=== PATIENT | female | born 1940 | race Asian ===

== ENCOUNTER 2016-09-04 11:43 | Inpatient (IN) | payer OTHER ==
[~2016-09-04] VITALS: Ht 147.3 cm; Wt 34.6 kg
[~2016-09-04 11:43] MED LIST: ACET325T9 PO; AMLO10TA4 PO; AMOX1TAB10 PO; ASPI325T4 PO; Albuterol Sulfate NEB; CLON0.1T12 PO; DARB25DI SQ; Dextrose 50 % In Water IV; ETHA400T PO; FOLI1TAB16 PO; HYDR-2868 PO; Hydralazine Hcl IV; INSU100I17 SQ; INSU100V13 SQ; ISONIAZID PO; LINE600T PO; LISI10TA PO; LISI10TA2 PO; MAGN400T3 PO; METO5VIA4 IV; MOXI400T3 PO; ONDA4TAB7 PO; Ondansetron Hcl/Pf IV; PANT40TA3 PO; PANT40TA5 PO; PYRAZINAMIDE PO; PYRI50TA4 PO; Polyethylene Glycol 3350 PO; RIFA300C PO; SIME80TA PO; Sennosides/Docusate Sodium PO
[2016-09-04] MEDS ORDERED: ALBUTEROL SULFATE 2.5 MG/3 ML NEBU. INH ONE (12:15)
[2016-09-04] MEDS ORDERED: predniSONE 10 MG TABLET PO ONE (12:15)
[2016-09-04] MEDS ORDERED: IPRATRPIUM/ALBUTEROL 0.5/2.5MG 3 ML NEBU. NEB ONE (12:15)
--- NOTE | 2016-09-04 12:27 | PHYS DOC ---
Past Medical History Past Medical History: Diabetes-Type II, Renal Disease, Unknown Additional Past Medical Histor: Tuberculosis, kidney failure, other hx unknown Past Surgical History: Other Additional Past Surgical Histo: OVARIES, dialysis shunt placement L upper arm Alcohol Use: None Drug Use: None Adult General Chief Complaint Chief Complaint: DYSPNEA/RESPIRATOY DISTRESS HPI HPI Patient is a 75 year old female who presents with shortness of breath. Patient has been having productive cough over the past week. Today while at dialysis she started having increasing shortness of breath. No chest discomfort, no fever. No clear inciting or mitigating factors. Unable to obtain significant history from patient even with aerial photograph interpreter phone. Review of Systems Review of Systems Unable to obtain full ROS due to language barrier (despite use of aerial photograph interpreter phone) Pulmonary: productive cough, SOB Current Medications Current Medications Current Medications Medications (Trade) Dose Ordered Sig/[place] Start Time Stop Time Status Last Admin Dose Admin Acetaminophen (Tylenol) 650 mg PRN Q4HRS PRN 09/04/16 14:15 09/05/16 14:14 Albuterol Sulfate (Ventolin Neb Soln) 5 mg 1X ONCE 09/04/16 12:15 09/04/16 12:16 DC 09/04/16 12:17 5 MG Albuterol/ Ipratropium (Duoneb) 3 ml 1X ONCE 09/04/16 12:15 09/04/16 12:16 DC 09/04/16 12:17 3 ML Aspirin (Children'S Aspirin) 324 mg 1X ONCE 09/04/16 13:45 09/04/16 13:46 DC Morphine Sulfate 2 mg PRN Q2HR PRN 09/04/16 14:15 09/05/16 14:14 Ondansetron HCl (Zofran) 4 mg PRN Q8HRS PRN 09/04/16 14:15 09/05/16 14:14 Piperacillin Sod/ Tazobactam Sod 2.25 gm/Sodium Chloride 50 ml @ 100 mls/hr ONCE ONCE 09/04/16 13:00 09/04/16 13:29 DC 09/04/16 13:32 100 MLS/HR Piperacillin Sod/ Tazobactam Sod 1 each 1 each PRN DAILY PRN 09/04/16 13:00 UNV Prednisone (Prednisone) 60 mg 1X ONCE 09/04/16 12:15 09/04/16 12:16 DC 09/04/16 12:41 60 MG Vancomycin HCl (Vanco Per Pharmacy) 1 each PRN DAILY PRN 09/04/16 13:00 UNV Vancomycin HCl/ Sodium Chloride (Iv Sodium Chloride 0.9% 250ml) 250 ml @ 166.667 mls/hr 1X ONCE 09/04/16 13:00 09/04/16 14:29 Allergies Allergies Allergies Coded Allergies Type Severity Reaction Last Updated Verified No Known Medication Allergies Allergy Unknown 03/08/16 Yes Physical Exam Physical Exam Constitutional: Well developed, well nourished, no acute distress, non-toxic appearance HENT: Normocephalic, atraumatic, bilateral external ears normal Eyes: EOMI, conjunctiva normal, no discharge Neck: Normal range of motion, no stridor Cardiovascular: Heart rate normal, regular rhythm, no murmur Lungs & Thorax: Diffuse expiratory wheezing, coarse breath sounds more pronounced on L side Abdomen: Bowel sounds normal, soft, non-distended, no TTP Skin: Warm, dry, no erythema, no rash Extremities: No obvious deformity, no edema Neurologic: No gross deficits noted Current Patient Data Vital Signs Vital Signs Date Time Temp Pulse Resp B/P Pulse Ox O2 Delivery O2 Flow Rate FiO2 09/04/16 12:15 100 Nasal Cannula 3.0 09/04/16 11:43 97.5 88 33 198/91 97.5 Lab Values Laboratory Tests Test 09/04/16 12:55 09/04/16 13:30 White Blood Count 7.8x10^3/uL (4.0-11.0) Red Blood Count 3.46x10^6/uL (3.50-5.40) L Hemoglobin 10.5g/dL (12.0-15.5) L Hematocrit 31.2% (36.0-47.0) L Mean Corpuscular Volume 90fL (79-100) Mean Corpuscular Hemoglobin 30pg (25-35) Mean Corpuscular Hemoglobin Concent 34g/dL (31-37) Red Cell Distribution Width 15.3% (11.5-14.5) H Platelet Count 94x10^3/uL (140-400) L Neutrophils (%) (Auto) 75% (31-73) H Lymphocytes (%) (Auto) 14% (24-48) L Monocytes (%) (Auto) 9% (0-9) Eosinophils (%) (Auto) 2% (0-3) Basophils (%) (Auto) 0% (0-3) Neutrophils # (Auto) 5.8x10^3uL (1.8-7.7) Lymphocytes # (Auto) 1.1x10^3/uL (1.0-4.8) Monocytes # (Auto) 0.7x10^3/uL (0.0-1.1) Eosinophils # (Auto) 0.2x10^3/uL (0.0-0.7) Basophils # (Auto) 0.0x10^3/uL (0.0-0.2) Sodium Level 141mmol/L (136-145) Potassium Level 3.8mmol/L (3.5-5.1) Chloride Level 100mmol/L (98-107) Carbon Dioxide Level 28mmol/L (21-32) Anion Gap 13 (6-14) Blood Urea Nitrogen 41mg/dL (7-20) H Creatinine 7.0mg/dL (0.6-1.0) H Estimated GFR (Cockcroft-Gault) 5.7 Glucose Level 157mg/dL (70-99) H Lactic Acid Level 1.5mmol/L (0.4-2.0) Calcium Level 8.7mg/dL (8.5-10.1) Troponin I Quantitative 0.196ng/mL (0.000-0.055) VD-Isu-Q-Type Natriuretic Peptide > 50977hm/mL (0-449) H Influenza Type A Antigen Negative (NEGATIVE) Influenza Type B Antigen Negative (NEGATIVE) Laboratory Tests 09/04/16 12:55 Laboratory Tests 09/04/16 12:55 EKG EKG EKG (my read): sinus rhythm, rate 86, normal axis, intervals wnl, nonspecific ST changes Radiology/Procedures Radiology/Procedures CXR: IMPRESSION: Vascular congestion with moderate right pulmonary infiltrate and pleural fluid most likely due to congestive heart failure. A component of pneumonia cannot be excluded. Course & Med Decision Making Course & Med Decision Making Pertinent Labs and Imaging studies reviewed. (See chart for details) Patient is 75 year old female who presents with SOB and cough. Significant wheezing noted on exam, will give breathing treatment and dose of steroids. CXR , labs, EKG ordered. ASA given. Labs notable for elevated BNP and troponin ( appears related to ESRD); troponin significantly lower than prior value. EKG and CXR results as above. Will cover with mendel for HCAP. Discussed results with patient's son. Discussed with Dr. Woods (covering for Dr. Bowman), will admit under his care for further evaluation and treatment. Consult entered for cardiology, nephrology, pulmonology. Dragon Disclaimer Dragon Disclaimer This electronic medical record was generated, in whole or in part, using a voice recognition dictation system. Departure Departure Impression: Primary Impression: SOB (shortness of breath) Additional Impressions: Pulmonary edema Pneumonia Disposition: ADMITTED INPATIENT Admitting Physician: Blanche Woods Condition: GUARDED Referrals: RACHEL BOWMAN (PCP) Problem Qualifiers JULIA CASSIDY MD Sep 04, 2016 12:27
--- NOTE | 2016-09-04 12:29 | EKG ---
[facility] [address] [place] [address] Test Date: 2016-09-04 Test Time: 11:56:44 Pat Name: OPAL KAUFFMAN Department: Room: Gender: F Down Filler: : 1940 Requested By: JULIA CASSIDY Order Number: [id number] Reading MD: Chepe Waller Measurements Intervals [place] Rate: 86 P: 34 OR: 158 QRS: 85 QRSD: 78 T: 26 QT: 366 QTc: 441 Interpretive Statements SINUS RHYTHM Electronically Signed On 09-15-2016 13:04:21 CDT by Chepe Waller
--- NOTE | 2016-09-04 12:48 | RAD ---
Portable chest, 09/04/2016: History: Cough, shortness of breath, wheezing Comparison is made to a study from 03/11/2016. The heart is enlarged. There is calcific plaquing of the aorta. The pulmonary vascularity is congested. There is a moderate right lower chest opacity compatible with infiltrate and pleural fluid. No definite left-sided pleural fluid is seen. Surgical sutures and vascular stents are projected over the medial aspect of the left upper arm. The bony structures are demineralized. IMPRESSION: Vascular congestion with moderate right pulmonary infiltrate and pleural fluid most likely due to congestive heart failure. A component of pneumonia cannot be excluded.
[2016-09-04] MEDS ORDERED: PIPERACILLIN/TAZOBACTAM 2.25 GM in IV NORMAL SALINE 50ML 50 ML IV ONE (13:00)
[2016-09-04] MEDS ORDERED: VANCOMYCIN 1.25 GM in IV NORMAL SALINE 250ML 250 ML IV ONE (13:00)
[2016-09-04] MEDS ORDERED: PIP/TAZO PER PHARMACY MC PRN (13:00)
[2016-09-04 13:08] LABS: BASO % 0 % (0-3); EOS % 2 % (0-3); HEMATOCRIT 31.2 % (36.0-47.0); HEMOGLOBIN 10.5 g/dL (12.0-15.5); LYMPH # 1.1 x10^3/uL (1.0-4.8); LYMPH % 14 % (24-48); MEAN CORPUSCULAR HEMOGLOBIN 30 pg (25-35); MEAN CORPUSCULAR HGB CONC 34 g/dL (31-37); MEAN CORPUSCULAR VOLUME 90 fL (79-100); MONO % 9 % (0-9); NEUT % 75 % (31-73); PLATELET COUNT 94 x10^3/uL (140-400); RED BLOOD COUNT 3.46 x10^6/uL (3.50-5.40); RED CELL DISTRIBUTION WIDTH 15.3 % (11.5-14.5); WHITE BLOOD COUNT 7.8 x10^3/uL (4.0-11.0)
[2016-09-04 13:20] LABS: CALCIUM 8.7 mg/dL (8.5-10.1); GFR 5.7; POTASSIUM 3.8 mmol/L (3.5-5.1)
[2016-09-04] MEDS ORDERED: ASPIRIN CHEWABLE 81 MG TABLET. PO ONE (13:45)
[2016-09-04 14:14] LABS: OBC FLU VALID
[2016-09-04] MEDS ORDERED: MORPHINE SULFATE 2 MG/ML DISP.SYRIN. IV PRN (14:15)
[2016-09-04] MEDS ORDERED: ACETAMINOPHEN 325 MG TABLET. PO PRN ×2 (14:15→16:00)
[2016-09-04] MEDS ORDERED: ONDANSETRON PF 4 MG/2 ML VIAL. IV PRN (14:15)
--- NOTE | 2016-09-04 14:18 | ACF ---
Admit Criteria Forms Admit Criteria Forms Admit Criteria Forms GENERAL ADMISSION CRITERIA (Place 'X' for any and all applicable criteria): Admission is indicated for ANY ONE of the following: [ ]I. Hemodynamic instability as indicated by ANY ONE of the following(1)(2) (3)(4)(5): [ ]a) Vital sign abnormality not readily corrected by appropriate treatment within 12 to 24 hours indicated by ANY ONE of the following: [ ]i) Hypotension [ ]ii) Symptomatic Tachycardia unresponsive to treatment (eg , analgesia, fluids, sedation as indicated) [ ]iii) Orthostatic vital sign changes unresponsive to treatment (eg, fluids) [ ]b) Vital sign abnormality that is severe indicated by ANY ONE of the following: [ ]i) Inadequate perfusion indicated by ANY ONE of the following: [ ]1) Lactic acidosis (greater than 2 mmol/L) [ ]2) New abnormal capillary refill (greater than 3 seconds) [ ]3) Other metabolic acidosis (arterial pH less than 7.35) not otherwise explained [ ]4) Reduced urine output [ ]5) Altered mental status [ ]6) Myocardial Ischemia [ ]v) Mean arterial pressure[A] less than 60 mm Hg [ ]vi) Mean arterial pressure[A] less than 70 mm Hg after 30 minutes of appropriate treatment (eg, fluid resuscitation) [ ]vii) IV inotropic or vasopressor medication required to maintain adequate blood pressure or perfusion [ ]viii) Sustained heart rate greater than 120 beats per minute in adult or child 6 years or older[B]] [ ]II. Hypertension requiring inpatient treatment as indicated by ANY ONE of the following(6)(7)(8): [ ]a) SBP greater than 220 mm Hg or DBP greater than 120 mm Hg despite treatment [ ]b) SBP greater than 140 mm Hg or DBP greater than 100 mm Hg with evidence of acute end organ damage as indicated by ANY ONE of the following: [ ]i) Encephalopathy [ ]ii) Acute renal failure as indicated by new onset of ANY ONE of the following(9)(10)(11)(12)(13): [ ]1) A 3-fold rise in serum creatinine from baseline [ ]2) Serum creatinine greater than 4 mg/dL ( 354 micromoles/L) with acute rise greater than 0.5 mg/dL (44.2 micromoles/L) [ ]3) Reduction of more than 75% in estimated glomerular filtration rate from baseline [ ]4) Estimated glomerular filtration rate less than 35 mL/min/1.73m2 (0.59 mL/sec/1.73m2) in child up to 18 years of age [ ]5) Cessation of urine output indicated by ALL of the following: [ ]A. Adequate volume status [ ]B. Inadequate urine output as indicated by ANY ONE of the following: [ ]a. Urine output less than 0.3 mL/kg/hr for 24 hours [ ]b. Anuria (urine output less than 0.1 mL/kg/hr) for 12 hours [ ]iii) Aortic dissection [ ]iv) Myocardial ischemia [ ]v) Left ventricular heart failure [ ]vi) Retinal hemorrhage [ ]vii) Other significant finding [ ]c) Hypertension in child requiring inpatient treatment as indicated by ALL of the following(14)(15)(16): [ ]i) Outpatient treatment not effective, not available, or not appropriate [ ]ii) SBP or DBP greater than 95th percentile for age [ ]iii) Evidence of acute end organ damage as indicated by ANY ONE of the following: [ ]1) Altered mental status [ ]2) Acute renal failure as indicated by new onset of ANY ONE of the following(9)(10)(11)(12)(13): [ ]A. A 3-fold rise in serum creatinine from baseline [ ]B. Serum creatinine greater than 4 mg/dL (354 micromoles/L) with acute rise greater than 0.5 mg/dL (44.2 micromoles/L) [ ]C. Reduction of more than 75% in estimated glomerular filtration rate from baseline [ ]D. Estimated glomerular filtration rate less than 35 mL/min/1.73m2 (0.59 mL/sec/1.73m2)in child up to 18 years of age [ ]E. Cessation of urine output indicated by ALL of the following: [ ]a. Adequate volume status [ ]b. Inadequate urine output as indicated by ANY ONE of the following: [ ]1) Urine output less than 0.3 mL/kg/hr for 24 hours [ ]2) Anuria (urine output less than 0.1 mL/kg/hr) for 12 hours [ ]3) Severe headache [ ]4) Visual disturbance [ ]5) Retinal hemorrhage [ ]6) Other significant finding [ ]III. Acute cardiac or peripheral ischemia as indicated by ANY ONE of the following: [ ]a) Acute coronary syndrome(17)(18) [ ]b) Acute peripheral ischemia (eg, pulseless, cool, mottled, or cyanotic extremity)(19) [ ]IV. Cardiac arrhythmias or findings of immediate concern indicated by ANY ONE of the following(20)(21): [ ]a) Heart rhythms that are inherently dangerous or unstable indicated by ANY ONE of the following(22)(23)(24): [ ]i) Resuscitated ventricular fibrillation or cardiac arrest [ ]ii) Ventricular escape rhythm [ ]iii) Sustained ventricular tachycardia (30 seconds or more of ventricular rhythm at greater than 100 beats per minute) [ ]iv) Nonsustained ventricular tachycardia and ANY ONE of the following: [ ]1) Suspected cardiac ischemia as cause or consequence of ventricular tachycardia [ ]2) In setting of acute myocarditis [ ]b) Unstable cardiac conduction defects indicated by ANY ONE of the following(24)(25)(26): [ ]i) Type II second-degree atrioventricular block [ ]ii) Third-degree atrioventricular block [ ]iii) New-onset left bundle branch block with suspected myocardial ischemia [ ]c) Any heart rhythm and ANY ONE of the following(22)(23)(27)(28)( 29): [ ] i) Continuous long-term ECG monitoring needed (eg, initiation of drug requiring monitoring for more than 24 hours) [ ] ii) Patient has automatic implanted cardioverter defibrillator that is repeatedly firing, malfunctioning, or in need of immediate adjustment of settings beyond the scope of ambulatory or observation care. [ ]d) Heart rhythms of concern due to ANY ONE of the following: [ ]i) Hypotension [ ]ii) Respiratory distress [ ]iii) Association with other significant symptoms (eg, bradycardia with syncope or ongoing dizziness, supraventricular tachycardia with chest pain) (27)(28) (30) [ ] V. Severe heart failure as indicated by ANY ONE of the following ( 31)(32): [ ]a) Respiratory distress [ ]b) Hypotension [ ]c) Anasarca (refractory to outpatient therapy) [ ]d) Cardiac arrhythmias of immediate concern [ ]e) Myocardial ischemia [X]. Respiratory abnormalities, including ANY ONE of the following(33)(34) (35)(36): [ ]a) Respiratory rate greater than 30 breaths per minute unresponsive to treatment [A] [ ]b) New saturation of arterial oxygen less than 90% [ ]c) New partial pressure of carbon dioxide greater than 44 mm Hg ( 5.9 kPa) [X]d) Supplemental oxygen or respiratory treatments needed that are new or not performable at other levels of care [ ]e) New-onset cyanosis [ ]f) Inability to protect airway [ ]g) Chronic lung disease with severe deterioration (not responsive to emergency and observation care treatment as appropriate) as indicated by ANY ONE of the following(34)(36 ): [ ]i) SaO2 5% below baseline in patient with chronic hypoxemia [ ]ii) New requirement for supplemental oxygen to keep SaO2 at baseline or acceptable level [ ]iii) Required supplemental oxygen performable only in acute inpatient setting [ ]iv) Severe airflow or ventilation abnormalities [ ]v) Previously mobile patient unable to walk between rooms [ ]vi Inability to eat or sleep due to dyspnea [ ]vii) Rapid rate of exacerbation onset [ ]viii) Altered mental status ]VII. Severe airflow or ventilation abnormalities (not responsive to emergency and observation care treatment as appropriate) as indicated by ANY ONE of the following(33)(34)(35)(37): [ ]a) PCO2 greater than 42 mm Hg (5.6 kPa) and pH less than 7.35 (new ) [ ]b) Documented PCO2 increased more than 5 mm Hg (0.7 kPa) from disease baseline [ ]c) Airflow measurements [B] less than 60% of previous best or predicted (eg, peak expiratory flow rate less than 300 L/minute) despite intensive emergent treatment [C] [ ]d) Required respiratory treatments that are performable only in acute inpatient setting [ ]VIII. Impending or actual respiratory arrest ( Also use Respiratory Failure GRG for severe respiratory disease and long-term mechanical ventilation patients) [ ]IX. Neurologic abnormalities, including ANY ONE of the following: [ ]a) New findings that suggest ANY ONE of the following: [ ]i) [employer] infection(38) [ ]ii) Cerebral bleeding, ischemia, or vasospasm(39)(40) [ ]iii) Increased intracranial pressure, hydrocephalus, or cerebral edema(41)(42)(43) [ ]iv) Spinal cord injury(44) [ ]b) Uncontrolled seizures(45) [ ]c) New-onset coma (eg, Navi coma scale score less than 9) or unexplained abnormal mental status (eg, [place] coma scale score less than 14) [D](41)(46)(47) [ ]X. New-onset severe neurologic findings requiring inpatient care; examples include(42)(48)(49): [ ]a) Papilledema [ ]b) Cerebral edema [ ]c) Mass effect on CT scan [ ]XI. Suspected acute intra-abdominal process with peritoneal signs, abdominal mass, or similar findings (50)(51)(52) [ ]XII. Severe physiologic disorder remaining after emergency or observation level care (as appropriate) as indicated by ANY ONE of the following (53): [ ]a) Significant dehydration [ ]b) Diabetic ketoacidosis [ ]c) Hyperglycemic hyperosmolar state (eg, osmolality greater than 320 mOsm/kg (mmol/kg) [ ]d) Hypoglycemia [ ]e) Other (new) acid-base disorder with pH less than 7.35 or greater than 7.5(54) [ ]f) Thyroid storm (55) [ ]g) Myxedema coma (55) [ ]XIII. Abdominal abnormalities with ANY ONE of the following(56)(57): [ ]a) Absent bowel sounds with complete ileus [ ]b) Signs of intestinal obstruction or peritonitis [E] [ ]c) Nausea and vomiting that cannot be controlled with outpatient or observation care [ ]XIV. Acute renal failure as indicated by new onset of ANY ONE of the following(9)(10)(11)(12)(13): [ ]a) A 3-fold rise in serum creatinine from baseline [ ]b) Serum creatinine greater than 4 mg/dL (354 micromoles/L) with acute rise greater than 0.5 mg/dL (44.2 micromoles/L) [ ]c) Reduction of more than 75% in estimated glomerular filtration rate from baseline [ ]d) Estimated glomerular filtration rate less than 35 mL/min/ 1.73m2 (0.59 mL/sec/1.73m2) in child up to 18 years of age [ ]e) Cessation of urine output indicated by ALL of the following: [ ]i) Adequate volume status [ ]ii) Inadequate urine output as indicated by ANY ONE of the following: [ ]1) Urine output less than 0.3 mL/kg/hr for 24 hours [ ]2) Anuria (urine output less than 0.1 mL/kg/hr) for 12 hours [ ]XV. Significant uremic complications as indicated by ANY ONE of the following(58)(59)(60): [ ]a) Outpatient therapy is ineffective or not feasible for ANY ONE of the following: [ ]i) Severe heart failure [ ]ii) Severehypertension [ ]iii) Pleural effusion [ ]iv) Pericarditis or pericardial effusion [ ]b) Cardiac arrhythmias of immediate concern [ ]c) Intractable nausea or vomiting [ ]d) Recurrent seizures [ ]e) Encephalopathy [ ]f) Bleeding abnormalities (eg, platelet dysfunction) with active (eg, gastrointestinal) bleeding [ ]g) Dialysis indicated before long-term access or ambulatory arrangements can be made [ ]h) Significant metabolic or electrolyte abnormalities (eg, severe acidosis or hyperkalemia) [ ]XVI. High fever or other high-risk infection situation as indicated by ANY ONE of the following(61)(62)(63)(64): [ ]a) Outpatient and observation care antimicrobial treatment unavailable, not effective, or not appropriate [ ]b) Documented bacteremia [ ]c) Temperature greater than 40.5 degrees C (104.9 degrees F) ( oral) [ ]d) Temperature greater than 39.5 degrees C (103.1 degrees F) ( oral) or less than 36 degrees C (96.8 degrees F) (rectal) that does not respond to e treatment and observation care [ ] XVII. Temperature less than 95 degrees F (35 degrees C)(rectal)(65) [ ] XVIII. Severe nutritional abnormalities as indicated by ALL of the following (66)(67): [ ]a) Inability to tolerate or establish sufficient oral or other enteral nutrition in outpatient setting [ ]b) Parenteral nutrition regimen need that must be implemented on inpatient basis [ ] XIX. Severe electrolyte abnormalities indicated by ALL of the following(68) (69)(70): [ ]a) Electrolytes and associated findings are not as expected for patient baseline or acceptable treatment effects. [ ]b) Severe abnormalities indicated by ANY ONE of the following: [ ]i) Sodium less than 130 mEq/L (mmol/L) (new) [ ]ii)Sodium less than 135 mEq/L (mmol/L) with ANY ONE of the following: [ ]1) Uncorrectable (to near normal or chronic baseline) after trial of outpatient and emergency treatment [ ]2) Altered mental status [ ]3) Seizures [ ]4) Severe medical etiology requiring inpatient management (eg, heart failure, hypovolemia) [ ]iii) Sodium greater than 155 mEq/L (mmol/L) [ ]iv) Sodium greater than 150 mEq/L (mmol/L) with ANY ONE of the following: [ ]1) Uncorrectable (to near normal or chronic baseline) with outpatient and emergency treatment [ ]2) Altered mental status [ ]3) Seizures [ ]4) Severe medical etiology (eg, hypovolemia, diabetes insipidus) [ ]v) Potassium less than 2.5 mEq/L (mmol/L) despite outpatient and emergency treatment [ ]vi) Potassium less than 3 mEq/L (mmol/L) with ANY ONE of the following: [ ]1) Weakness [ ]2) Cardiac abnormality (eg, arrhythmia, conduction disturbance) [ ]3) Cardiac ischemia [ ]4) Ileus [ ]5) Ongoing medical cause requiring inpatient management (eg, acute renal wasting or SIADH) [ ]6) Other severe symptoms [ ]vii) Potassium greater than 6.5 mEq/L (mmol/L) [ ]viii) Potassium greater than 5 mEq/L (mmol/L) with ANY ONE of the following: [ ]1) Uncorrectable (to near normal or chronic baseline) with outpatient and emergency treatment [ ]2) Severe ECG findings [F] [ ]3) Acute worsening of renal failure (creatinine greater than 2.5 mg/dL (221 micromoles/L) or significant elevation for age and size) [ ]4) Severe weakness [ ]5) Severe medical etiology (eg, hemolysis, infection, drug overdose) [ ]ix) Calcium less than 7 mg/dL (1.75 mmol/L) despite outpatient and emergency treatment (72) [ ]x) Calcium less than 8 mg/dL (2 mmol/L) with significant symptoms or findings; examples include(72): [ ]1) Altered mental status [ ]2) Muscle spasms [ ]3) Seizures [ ]4) Breathing difficulty [ ]5) Cardiac abnormality (eg, arrhythmia or conduction disturbance) [ ]xi) Calcium greater than 14 mg/dL (3.5 mmol/L)(72) [ ]xii) Calcium greater than 12 mg/dL (3 mmol/L) with ANY ONE of the following(72): [ ]1) Uncorrectable (to near normal or chronic baseline) with outpatient and emergency treatment [ ]2) Significant dehydration or hypovolemia as indicated by ALL of the following(70)(73)(74): [ ]A. Not resolved with initial treatments [ ]B. Clinically significant dehydration as indicated by ANY ONE of the following: [ ]a. Vomiting refractory to outpatient treatment (ie, precluding oral rehydration) [ ]b. Inability to drink [ ]c. Hypernatremia or other electrolyte abnormality unable to be corrected with outpatient and emergency treatment [ ]d. Failure to remain hydrated with outpatient therapy [ ]e. Reduced urine output [ ]f. Hypotension [ ]g. Serious cause for dehydration requiring acute hospitalization (eg, bowel obstruction, increased intracranial pressure, infectious cause) [ ]h. Child with ANY ONE of the following(75): [ ]1) Severe abdominal tenderness [ ]2) Adequate care not available at home [ ]3) Severe dehydration ( greater than 9% loss of body weight) [ ]4) Significant symptoms or findings; examples include: [ ]A. Altered mental status [ ]B. Cardiac abnormality (eg, arrhythmia, conduction disturbance) [ ]C. Malignant etiology requiring inpatient treatment [ ]xiii) Phosphorus less than 1 mg/dL (0.32 mmol/L) [ ]xiv) Phosphorus less than 1.5 mg/dL (0.48 mmol/L) with ANY ONE of the following: [ ]1) Patient unresponsive to outpatient and emergency treatment [ ]2) Significant symptoms or findings; examples include: [ ]A. Weakness [ ]B. Altered mental status [ ]C. Breathing difficulty [ ]D. Seizures [ ]E. Rhabdomyolysis [ ]xv) Phosphorus greater than 10 mg/dL (3.2 mmol/L) [ ]xvi) Phosphorus greater than 4.5 mg/dL (1.45 mmol/L) (new) with ANY ONE of the following: [ ]1) Severe medical etiology (eg, crush injury, acute renal failure) [ ]2) Associated hypocalcemia with significant findings; examples include: [ ]A. Neurologic symptoms [ ]B. Altered mental status [ ]C. Muscle spasms [ ]D. Seizures [ ]E. Breathing difficulty [ ]F. Cardiac abnormality (eg, arrhythmia, conduction disturbance) [ ]xvii) Magnesium less than 1 mg/dL (0.41 mmol/L) [ ]xviii) Magnesium less than 1.5 mg/dL (0.62 mmol/L) with ANY ONE of the following: [ ]1) Patient unresponsive to outpatient and emergency treatment [ ]2) Associated hypocalcemia with significant findings; examples include: [ ]A. Altered mental status [ ]B. Muscle spasms [ ]C. Seizures [ ]D. Breathing difficulty [ ]E. Cardiac abnormality (eg, arrhythmia , conduction disturbance) [ ]3) Associated hypokalemia (potassium less than 3 mEq/L (mmol/L)) with risk of arrhythmia [ ]xix) Magnesium greater than 4 mEq/L (2 mmol/L) [ ]xx) Magnesium greater than 2.5 mEq/L (1.25 mmol/L) with significant symptoms or findings; examples include: [ ]1) Weakness [ ]2) Altered mental status [ ]3) Cardiac abnormality (eg, arrhythmia, conduction disturbance) [ ]4) Breathing difficulty [ ]5) Severe medical etiology (eg, renal failure, hypovolemia) [ ]xxi) Uric acid greater than 20 mg/dL (1190 micromoles/L)(76) [ ]xxii) Uric acid greater than 8 mg/dL (476 micromoles/L) with significant symptoms or findings of tumor lysis syndrome; examples include(76): [ ]1) Creatinine greater than 1.5 times upper limit of normal [ ]2) Cardiac abnormality (eg, arrhythmia, conduction disturbance) [ ]3) Seizure [ ]XX. Acute blood loss causing significant abnormality as indicated by ANY ONE of the following(77)(78): [ ]a) Hemoglobin less than 10 g/dL (100 g/L) (not baseline) [ ]b) Hematocrit less than 30% (0.30) (not baseline) [ ]c) Repeat hematocrit decreased more than 2% (0.02) [ ]d) Uncontrolled bleeding [ ]XXI. Severe anemia indicated by ANY ONE of the following(78)(79): [ ]a) Altered mental status [ ]b) Chest pain [ ]c) Exertional dyspnea [ ]d) Syncope [ ]e) Other findings suggesting inadequate perfusion [ ]f) Treatment with transfusion or volume replacement is ineffective at resolving ANY ONE of the following [G]: [ ]i) Tachycardia for age [ ]ii) Orthostatic vital sign changes as indicated by ANY ONE of the following(80): [ ]1) Fall in SBP of 20 mm Hg or more 1 to 3 minutes after patient sits or stands from recumbent position [ ]2) Fall in DBP of 10 mm Hg or more 1 to 3 minutes after patient sits or stands from recumbent position [ ]XXII. High-risk low platelet count as indicated by ANY ONE of the following( 81)(82): [ ]a) Severe or life-threatening bleeding (eg, intracranial, major gastrointestinal, or extensive mucosal bleeding), with any reduced platelet count [ ]b) Platelet count less than 20,000/mm3 (20 x109/L) with any active bleeding [ ]c) Platelet count less than 10,000/mm3 (10 x109/L) with minor purpura or petechiae [ ]d) Platelet count less than 5000/mm3 (5 x109/L) [ ]e) Low platelet count with hemolytic anemia [ ]XXIII. Disseminated intravascular coagulation(77)(83) [ ]XXIV. Severe adverse drug or systemic toxin reaction requiring inpatient treatment; examples include(84)(85): [ ]a) Serotonin syndrome(86) [ ]b) Neuroleptic malignant syndrome(86) [ ]c) Cholinergic syndrome with severe symptoms (eg, bronchorrhea, weakness, mental status changes, seizures) [ ]d) Sympathetic syndrome with severe symptoms (eg, seizures, mental status changes, cardiac dysrhythmias) [ ]e) Anticholinergic syndrome [ ]XXV. Severe pain requiring acute inpatient management as indicated by ALL of the following (87)(88)(89): [ ]a) Continuous or frequent (eg, every 2 to 4 hours) parenteral analgesics required [H] [ ]b) Rapid improvement expected from treatment or acute intervention (eg, surgery, anesthesia procedure) [ ]XXVI.Severe behavioral health issues judged unmanageable at a lower level of care (eg, residential) in a patient who is ANY ONE of the following(91) [ ]a) Acutely suicidal [ ]b) A danger to self (eg, self-mutilating or suicidal behavior) [ ]c) A danger to others (eg, assaultive or homicidal behavior) [ ]d) Incapacitated because of grave disability (eg, inability to provide for self at lower level of care) (92) [ ]XXVII. Inpatient monitoring needed; examples include(1)(3)(87)(93)(94)(95)(96 ): [ ]a) Vital signs, neurologic signs, or vascular checks more frequently than every 4 hours [ ]b) Cardiac or respiratory monitoring beyond the scope (eg, over 24 hours) of observation care [ ]c) Pulmonary artery catheter monitoring [ ]d) Suspected compartment syndrome(97) (98) [ ]e) Cerebral bleeding, hydrocephalus, or vasospasm monitoring [ ]f) Increased intracranial pressure or cerebral edema monitoring [ ]g) monitoring [ ]XXVIII. Treatment requiring inpatient care; examples include: [ ]a) IV fluid to replace significant ongoing losses (greater than 3 L/m2 per day)(53) [ ]b) High concentration oxygen (greater than 40%)(33)(99)(100) [ ]c) Frequent respiratory therapy (more frequently than every 4 hours) to maintain airflow rates greater than 60% of baseline(33)(99)(100) [ ]d) Epidural analgesia(87) [ ]e) IV anticoagulation, vasoactive, or antiarrhythmic medication(19 )(23) [ ]f) Acute thrombolytics (generally require 24 hours of observation )(101)(102) [ ]XXIX. Emergency procedures needed; examples include: [ ]a) Emergency inpatient surgery [ ]b) Temporary pacemaker placement(103) [ ]c) Chest tube placement with active evacuation (eg, suction, drainage)(104) [ ]d) Emergent cardioversion(105) [ ]e) Emergent cardiac or vascular procedures (eg, cardiac catheterization, angioplasty) (17)(18) [ ]f) Emergent dialysis access placement and institution(10)(106) [ ]g) Emergent pericardiocentesis(107) [ ]h) Emergent plasmapheresis or leukapheresis(83) [ ]i) Emergent tracheostomy The original [employer] content created by [employer] has been revised. The portions of the content which have been revised are identified through the use of italic text or in bold, and [facility] [email or web address] has neither reviewed nor approved the modified material. All other unmodified content is copyright [employer]. Please see references footnoted in the original [employer] edition 2016 CR YOUSIF Sep 04, 2016 14:18
[2016-09-04] MEDS ORDERED: SIMETHICONE 80 MG TAB.CHEW PO PRN (16:00)
[2016-09-04] MEDS ORDERED: hydrALAZINE 25 MG TABLET PO PRN (16:00)
[2016-09-04] MEDS ORDERED: NON FORMULARY ITEM ([Albuterol Sulfate] 2.5 MG) NEB PRN (16:00)
[2016-09-04] MEDS ORDERED: DEXTROSE 50% 25 GM / 50ML DISP.SYRIN. IV PRN (16:00)
[2016-09-04] MEDS ORDERED: CLONIDINE HCL 0.1 MG TABLET PO PRN (16:00)
--- NOTE | 2016-09-04 16:00 | PDOC ---
Provider Note Provider Note Pt seen in ER.H&P dictated. #[id number] FRANCISCO LAMBERT MD Sep 04, 2016 16:00
[2016-09-04] MEDS ORDERED: ALBUTEROL SULFATE 2.5 MG/3 ML NEBU. NEB PRN (16:45)
[2016-09-04] MEDS: VANCOMYCIN PER PHARMACY MC PRN (16:58)
[2016-09-04] MEDS: PANTOPRAZOLE 40 MG TABLET.DR. PO SCH (18:13)
[2016-09-04] MEDS: INSULIN ASPART 300 UNITS/3 ML INSULN.PEN SQ SCH (18:19)
[2016-09-04 18:43] VITALS: BP 159/81
[2016-09-04 19:47] VITALS: BP 151/70
--- NOTE | 2016-09-04 20:01 | HP ---
ADMIT DATE: 09/04/2016 LOCATION: Emergency Room. The patient is being admitted to the hospital. REASON FOR ADMISSION: Shortness of breath, pneumonia, congestive heart failure, diastolic dysfunction. HISTORY OF PRESENT ILLNESS: The patient is a 75-year-old female from [facility], the patient of Dr. Coreas. She has a history of diabetes, hypertension, renal failure, hemodialysis, also diastolic heart failure. She was having cough, shortness of breath, got progressively worse while she is getting dialysis today, sent to the Emergency Room. Chest x-ray shows infiltrates in the lung, was admitted with the diagnosis of pneumonia, underlying congestive heart failure. PAST MEDICAL HISTORY: The patient was in the hospital 6 months ago, at that time had a cardiac cath and echocardiogram which shows diastolic heart failure, ejection fraction 55-60%. She also has end-stage renal disease on hemodialysis, hypertension, diabetes, hyperlipidemia, history of tuberculosis, was treated in the past. PAST SURGICAL HISTORY: Had a cardiac cath, transesophageal echocardiogram, AV shunt for dialysis. ALLERGIES: No known drug allergies. MEDICATIONS AT HOME: The patient is on Tylenol, amlodipine 10 mg daily, aspirin 325 daily, clonidine 0.1 q. 6, Aranesp every week with dialysis, folic acid 1 mg daily, hydralazine 25 mg 3 times daily, insulin sliding scale, Protonix 40 mg daily, albuterol breathing treatments daily, MiraLax daily, senna daily. PERSONAL HISTORY: No history of smoking, alcohol, drug abuse. SOCIAL HISTORY: Lives at home. REVIEW OF SYSTEMS: A 14-system review: CARDIAC: Complains of shortness of breath. Also comes up cough with wheezing. Slightly yellow phlegm. GASTROINTESTINAL: No nausea or vomiting. NEUROLOGICAL: No weakness. Rest of the 14-system was reviewed and negative. PHYSICAL EXAMINATION: VITAL SIGNS: At the time of admission shows a temperature 97, pulse 88, respirations 30, blood pressure 198/91, 99% on 5 liters. HEENT: Head is atraumatic. Pupils equal. Oral cavity, no teeth. NECK: Supple. Thyroid not enlarged. JVD not elevated. CHEST: Symmetrical. CARDIOVASCULAR: S1, S2. LUNGS: Bilateral wheezing, mostly in the posterior as well as anterior. ABDOMEN: Soft, bowel sounds present, no mass palpable. EXTERNAL GENITALIA: No Donald. RECTAL: Deferred. EXTREMITIES: No calf tenderness, no edema. The patient has an AV shunt in the left arm. Thrill is present. NEUROLOGIC: No focal deficit noted. LABORATORY DATA: Shows a white count of 8, hemoglobin 10, platelets 94. Electrolytes show sodium 141, potassium 3.8, chloride 100, bicarbonate 28, BUN 41, creatinine 7.0, lactic acid 1.5, calcium 8.7. Troponin 0.1. BNP more than 3000. Influenza A and B was negative. Chest x-ray shows congestion, probably could be infiltrates. FINAL IMPRESSION: 1. Pneumonia suspect gram neg and positive. 2. Heart failure, diastolic, chronic. 3. End-stage renal disease, on dialysis Wednesday, Wednesday and Wednesday. 4. Diabetes, insulin-dependent. 5. Hypertension. 6. 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 PLAN: At this time, admit to hospital, oxygen and breathing treatments, sputum culture, vancomycin and Rocephin and also dialyzed, Cardiology consult, Renal consult and influenza was negative. FRANCISCO LAMBERT MD DR: RIVAS/humza JOB#: [id number] / [id number] RACHEL Travis
[2016-09-04] MEDS ORDERED: DARBEPOETIN ALFA 25 MCG/0.42 ML DISP.SYRIN. SQ SCH (21:00)
[2016-09-04] MEDS: PIPERACILLIN/TAZOBACTAM 2.25 GM in IV NORMAL SALINE 50ML 50 ML IV SCH (21:11)
[2016-09-04] MEDS: SENNOSIDES/DOCUSATE 8.6/50MG TABLET. PO SCH (21:12)
[2016-09-04] MEDS: HEPARIN PF for SUB-Q USE 5,000 UNIT/0.5 ML VIAL. SQ SCH (21:26)
[2016-09-04] MEDS: IPRATRPIUM/ALBUTEROL 0.5/2.5MG 3 ML NEBU. NEB SCH ×2 (22:45→22:46)
[2016-09-04 23:37] VITALS: BP 155/69
[2016-09-05 03:25] VITALS: BP 144/66
[2016-09-05 05:29] LABS: BASO % 0 % (0-3); EOS % 0 % (0-3); HEMATOCRIT 27.4 % (36.0-47.0); HEMOGLOBIN 8.7 g/dL (12.0-15.5); LYMPH # 0.2 x10^3/uL (1.0-4.8); LYMPH % 4 % (24-48); MEAN CORPUSCULAR HEMOGLOBIN 29 pg (25-35); MEAN CORPUSCULAR HGB CONC 32 g/dL (31-37); MEAN CORPUSCULAR VOLUME 92 fL (79-100); MONO % 2 % (0-9); NEUT % 95 % (31-73); PLATELET COUNT 79 x10^3/uL (140-400); RED BLOOD COUNT 2.97 x10^6/uL (3.50-5.40); RED CELL DISTRIBUTION WIDTH 15.3 % (11.5-14.5); WHITE BLOOD COUNT 5.7 x10^3/uL (4.0-11.0)
[2016-09-05] MEDS: PIPERACILLIN/TAZOBACTAM 2.25 GM in IV NORMAL SALINE 50ML 50 ML IV SCH ×3 (05:37→23:30)
[2016-09-05] MEDS: HEPARIN PF for SUB-Q USE 5,000 UNIT/0.5 ML VIAL. SQ SCH ×3 (05:46→22:00)
[2016-09-05 06:04] LABS: CALCIUM 8.3 mg/dL (8.5-10.1); CREATININE 7.6 mg/dL (0.6-1.0); GFR 5.2
[2016-09-05 07:00] VITALS: BP 155/63
[2016-09-05] MEDS: IPRATRPIUM/ALBUTEROL 0.5/2.5MG 3 ML NEBU. NEB SCH ×4 (07:23→19:32)
[2016-09-05] MEDS: INSULIN ASPART 300 UNITS/3 ML INSULN.PEN SQ SCH ×3 (08:00→17:00)
--- NOTE | 2016-09-05 09:00 | PDOC2 ---
IVETH KU [employer]EN[employer]IAN BLIND [employer]KER 09/05/16 0900: CARDIAC CONSULT DATE OF CONSULT Date of Consult DATE: 09/05/16 TIME: 08:41 REASON FOR CONSULT Reason for Consult: Elevated BNP and troponin REFERRING PHYSICIAN Referring Physician: Dr. Crabtree SOURCE Source: Chart review HISTORY OF PRESENT ILLNESS HISTORY OF PRESENT ILLNESS This is a 75 yo female who presented with complaints of shortness of breath. HPI obtained from chart review as patient does not speak Uzbek. Attempt to use mosaicist phone but patient would not speak back to mosaicist and kept handing 2nd line back to me. Attempted to call family, but was unable to reach both individuals listed as contacts. Patient was apparently in HD and had increasing SOA. Has has productive cough and mild SOA over the last week. Dyspnea has been progressively worsening. Unclear as to whether patient has been complaint with dialysis or medications. 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) GI: GERD, Other (gastroparesis) Heme/Onc: Anemia NOS Hepatobiliary: No pertinent hx Psych: No pertinent hx Musculoskeletal: No pain Rheumatologic: No pertinent hx Infectious disease: No pertinent hx Renal/: Chronic renal failure (with HD) Endocrine: Diabetes (insulin requiring) Dermatology: No pertinent hx PAST SURGICAL HISTORY Past Surgical History hysterectomy, Other (AV graft left upper arm) FAMILY HISTORY Family History: Other (unknown) SOCIAL HISTORY Smoke: No ALCOHOL: none Drugs: None CURRENT MEDICATIONS CURRENT MEDICATIONS Current Medications Medications (Trade) Dose Ordered Sig/Lisbet Route PRN Reason Start Time Stop Time Status Last Admin Dose Admin Albuterol/ Ipratropium (Duoneb) 3 ml 1X ONCE NEB 09/04/16 12:15 09/04/16 12:16 DC 09/04/16 12:17 Albuterol Sulfate (Ventolin Neb Soln) 5 mg 1X ONCE INH 09/04/16 12:15 09/04/16 12:16 DC 09/04/16 12:17 Prednisone (Prednisone) 60 mg 1X ONCE PO 09/04/16 12:15 09/04/16 12:16 DC 09/04/16 12:41 Vancomycin HCl 1 each 1 each PRN DAILY PRN MC SEE COMMENTS 09/04/16 13:00 09/04/16 16:58 Piperacillin Sod/ Tazobactam Sod 2.25 gm/Sodium Chloride 50 ml @ 100 mls/hr ONCE ONCE IV 09/04/16 13:00 09/04/16 13:29 DC 09/04/16 13:32 Vancomycin HCl/ Sodium Chloride (Iv Sodium Chloride 0.9% 250ml) 250 ml @ 166.667 mls/hr 1X ONCE IV 09/04/16 13:00 09/04/16 14:29 DC 09/04/16 14:26 Aspirin 324 mg 324 mg 1X ONCE PO 09/04/16 13:45 09/04/16 13:46 DC 09/04/16 14:30 Piperacillin Sod/ Tazobactam Sod/ Sodium Chloride (Zosyn/Iv Sodium Chloride 0.9% 50ml) 50 ml @ 100 mls/hr Q8HRS IV 09/04/16 22:00 09/05/16 05:37 Darbepoetin Azeem (Aranesp) 25 mcg WEEKLYHS SQ 09/04/16 21:00 09/04/16 21:10 Pantoprazole Sodium (Protonix) 40 mg BIDAC PO 09/04/16 16:30 09/04/16 18:13 Senna/Docusate Sodium (Senna Plus) 1 tab QHS PO 09/04/16 21:00 09/04/16 21:12 Albuterol/ Ipratropium (Duoneb) 3 ml QID NEB 09/04/16 17:00 09/05/16 07:23 Insulin Aspart (Novolog) 0-7 UNITS TIDWMEALS SQ 09/04/16 17:00 09/04/16 18:19 Heparin Sodium (Porcine) 5,000 unit Q8HRS SQ 09/04/16 22:00 09/05/16 05:46 ALLERGIES ALLERGIES: Coded Allergies: No Known Medication Allergies (Verified Allergy, Unknown, 03/08/16) ROS Review of System unobtainable PHYSICAL EXAM PHYSICAL EXAM General: Alert, Cooperative HEENT: Atraumatic Lungs: Other (soft basilar crackles posteriorly with fine expiratory wheezing) Heart: Regular rate, Normal S1, Normal S2, Other (2/6 systolic murmur) Abdomen: Normal bowel sounds, Soft, No tenderness Extremities: No edema, Normal pulses Skin: No rashes Neuro: unable to assess MUSCULOSKELETAL: Osteoarthritic changes both hands VITALS VITALS Vital Signs Date Time Temp Pulse Resp B/P Pulse Ox O2 Delivery O2 Flow Rate FiO2 09/05/16 07:23 100 Nasal Cannula 3.0 09/05/16 03:25 97.6 82 14 144/66 97.6 LABS Lab: Laboratory Tests Test 09/04/16 12:55 09/04/16 13:30 09/04/16 17:57 09/04/16 19:15 White Blood Count 7.8x10^3/uL (4.0-11.0) Red Blood Count 3.46x10^6/uL (3.50-5.40) Hemoglobin 10.5g/dL (12.0-15.5) Hematocrit 31.2% (36.0-47.0) Mean Corpuscular Volume 90fL (79-100) Mean Corpuscular Hemoglobin 30pg (25-35) Mean Corpuscular Hemoglobin Concent 34g/dL (31-37) Red Cell Distribution Width 15.3% (11.5-14.5) Platelet Count 94x10^3/uL (140-400) Neutrophils (%) (Auto) 75% (31-73) Lymphocytes (%) (Auto) 14% (24-48) Monocytes (%) (Auto) 9% (0-9) Eosinophils (%) (Auto) 2% (0-3) Basophils (%) (Auto) 0% (0-3) Neutrophils # (Auto) 5.8x10^3uL (1.8-7.7) Lymphocytes # (Auto) 1.1x10^3/uL (1.0-4.8) Monocytes # (Auto) 0.7x10^3/uL (0.0-1.1) Eosinophils # (Auto) 0.2x10^3/uL (0.0-0.7) Basophils # (Auto) 0.0x10^3/uL (0.0-0.2) Sodium Level 141mmol/L (136-145) Potassium Level 3.8mmol/L (3.5-5.1) Chloride Level 100mmol/L (98-107) Carbon Dioxide Level 28mmol/L (21-32) Anion Gap 13 (6-14) Blood Urea Nitrogen 41mg/dL (7-20) Creatinine 7.0mg/dL (0.6-1.0) Estimated GFR (Cockcroft-Gault) 5.7 Glucose Level 157mg/dL (70-99) Lactic Acid Level 1.5mmol/L (0.4-2.0) Calcium Level 8.7mg/dL (8.5-10.1) Troponin I Quantitative 0.196ng/mL (0.000-0.055) 0.132ng/mL (0.000-0.055) LG-Nbl-Y-Type Natriuretic Peptide > 64446ab/mL (0-449) Influenza Type A Antigen Negative (NEGATIVE) Influenza Type B Antigen Negative (NEGATIVE) Glucose (Fingerstick) 289mg/dL (70-99) Test 09/04/16 20:55 09/05/16 02:30 09/05/16 08:31 Glucose (Fingerstick) 280mg/dL (70-99) 150mg/dL (70-99) White Blood Count 5.7x10^3/uL (4.0-11.0) Red Blood Count 2.97x10^6/uL (3.50-5.40) Hemoglobin 8.7g/dL (12.0-15.5) Hematocrit 27.4% (36.0-47.0) Mean Corpuscular Volume 92fL (79-100) Mean Corpuscular Hemoglobin 29pg (25-35) Mean Corpuscular Hemoglobin Concent 32g/dL (31-37) Red Cell Distribution Width 15.3% (11.5-14.5) Platelet Count 79x10^3/uL (140-400) Neutrophils (%) (Auto) 95% (31-73) Lymphocytes (%) (Auto) 4% (24-48) Monocytes (%) (Auto) 2% (0-9) Eosinophils (%) (Auto) 0% (0-3) Basophils (%) (Auto) 0% (0-3) Neutrophils # (Auto) 5.4x10^3uL (1.8-7.7) Lymphocytes # (Auto) 0.2x10^3/uL (1.0-4.8) Monocytes # (Auto) 0.1x10^3/uL (0.0-1.1) Eosinophils # (Auto) 0.0x10^3/uL (0.0-0.7) Basophils # (Auto) 0.0x10^3/uL (0.0-0.2) Sodium Level 141mmol/L (136-145) Potassium Level 4.0mmol/L (3.5-5.1) Chloride Level 101mmol/L (98-107) Carbon Dioxide Level 24mmol/L (21-32) Anion Gap 16 (6-14) Blood Urea Nitrogen 46mg/dL (7-20) Creatinine 7.6mg/dL (0.6-1.0) Estimated GFR (Cockcroft-Gault) 5.2 Glucose Level 274mg/dL (70-99) Calcium Level 8.3mg/dL (8.5-10.1) Troponin I Quantitative 0.144ng/mL (0.000-0.055) ECHOCARDIOGRAM ECHOCARDIOGRAM <Conclusion> Left ventricle systolic function is low normal. The Ejection Fraction is 50%. There is global hypokinesis of the left ventricle. Doppler and Color Flow revealed moderate mitral regurgitation. Doppler and Color Flow revealed mild to moderate tricuspid regurgitation. The PA pressure was estimated at 45 mmHg. The IVC is dilated and collapses >50% with inspiration. DATE: 02/26/16 0707 STRESS TEST STRESS TEST Conclusion 1. No evidence of EKG changes with stress 2. Normal myocardial perfusion at stress and rest 3. Mildly decreased EF at 45% 4. Low to moderate risk stress test. Recommendations No evidence of ischemia by stress testing. 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 DATE: 02/09/15 1258 HEART CATH HEART CATH Coronaries. Left main. The left main was a short vessel with no lesions. Left anterior descending. The LAD was a moderate size vessel. It had a proximal eccentric 40-45% lesion. Left circumflex. The left circumflex was a large dominant vessel. It had a mid 20% lesion, a distal 30% lesion and diffuse small vessel distal disease. Right coronary artery. The right coronary was a small nondominant vessel with a mid 35% lesion. <Conclusion> Moderate three-vessel coronary artery disease. Left ventricular end-diastolic pressure 14 mmHg on IV nitroglycerin as above. DATE: 02/26/16 1544 ASSESSMENT/PLAN ASSESSMENT/PLAN 1. Acute on chronic systolic and diastolic HF, LVEF ~ 50% (03/08) CXR with vascular congestion oliguric; fluid offloading/management per hemodialysis will repeat echo in am to assess LV function or presence of new WMA recommend adding GENE for optimization 2. Mildly elevated troponin 0.144 in the setting of CRF and acute infection doubt ACS cardiac cath 03/08 with moderate 3-vessel disease; no significant obstructive CAD continue medical management. Add BB when pulmonary status stable/wheezing resolved 3. Acute on chronic respiratory failure multifactorial with infiltrates/poss PNA and HF per pulm 4. ESRD with HD per nephrology 5. DM, II insulin requiring per PCP 6. Hypertension add GENE 7. Hyperlipidemia check lipids statin therapy if indicated given risk factors 8. Anemia of chronic disease 9. H/o TB treated Problems: SHEILA NAIR MD 09/05/16 1341: CARDIAC CONSULT ALLERGIES ALLERGIES: Coded Allergies: No Known Medication Allergies (Verified Allergy, Unknown, 03/08/16) ASSESSMENT/PLAN ASSESSMENT/PLAN Patient seen and examined. Agree with DRIVER MATERIAL HANDLER's assessment and plan. Continue fluid removal with hemodialysis for acute on chronic combined diastolic and systolic heart failure. Patient has slight elevation of troponin level but EKG without acute changes and recent cardiac catheterization showed only moderate nonobstructive coronary artery disease. Doubt ACS. Continue current medical regimen. Thank you for your consultation. Problems: IVETH KU APRN Sep 05, 2016 09:00 SHEILA NAIR MD Sep 05, 2016 13:41
--- NOTE | 2016-09-05 09:10 | PDOC ---
Provider Note Provider Note [id number] acute resp fail abnl cxr pneumonia acute bronchospasm acute diastolic chf aggressive hd, see orders. BHAVNA JIMENEZ MD Sep 05, 2016 09:10
[2016-09-05] MEDS: PANTOPRAZOLE 40 MG TABLET.DR. PO SCH ×2 (09:21→18:03)
[2016-09-05] MEDS: FOLIC ACID 1 MG TABLET. PO SCH (09:21)
[2016-09-05] MEDS: ASPIRIN 325 MG TABLET PO SCH (09:21)
[2016-09-05] MEDS: POLYETHYLENE GLYCOL 3350 17 GM PACKET. PO SCH (09:22)
[2016-09-05] MEDS: amLODIPine BESYLATE 10 MG TABLET PO SCH (09:22)
[2016-09-05 09:26] LABS: CHOLESTEROL/HDL RATIO 4.8
[2016-09-05] MEDS: LISINOPRIL 5 MG TABLET. PO SCH (09:30)
--- NOTE | 2016-09-05 10:16 | CONS ---
DATE OF CONSULTATION: 09/05/2016 I was asked to see this 75-year-old lady for acute respiratory failure, pneumonia, shortness of breath, cough. HISTORY OF PRESENT ILLNESS: The patient does not speak Cameroonian. All of the information was obtained from chart and nursing staff. She has had increased shortness of breath, wheezing, cough with the sputum production for the past few days. Failed on dialysis, respiratory status gets worse and she was admitted for further evaluation. She has a history of tuberculosis, which was treated 2 years ago. She has renal failure on hemodialysis. She has hypertension and diabetes mellitus. PAST MEDICAL HISTORY: CHF, end-stage renal disease on hemodialysis, diabetes mellitus, hypertension, hyperlipidemia, history of tuberculosis, status post cardiac catheterization. ALLERGIES: No known drug allergies. SOCIAL HISTORY: No history of smoking. FAMILY HISTORY: Unknown per chart. She is not able to give any information. MEDICATIONS: Currently she is on vancomycin, lisinopril, vitamin, MiraLax, folic acid, Norvasc, aspirin, heparin 5000 units every 8, Zosyn, insulin, DuoNeb, Protonix, hydralazine, clonidine, morphine. REVIEW OF SYSTEMS: As mentioned as above. I have discussed the patient with RN other systems otherwise negative. PHYSICAL EXAMINATION: GENERAL: A well-developed lady, chronically ill appearing. VITAL SIGNS: Her O2 saturation on 3 liters of oxygen is 98%, respiratory rate 20, heart rate 79, blood pressure 155/63, temperature 98.3. HEENT: Normocephalic, atraumatic. Pupils equal, round, reactive to light. Nose is clear. NECK: Positive JVD. No lymphadenopathy. CARDIOVASCULAR: Regular rate and rhythm. PMI is nondisplaced. CHEST: Inspection is normal. LUNGS: There is bilateral end expiratory wheezing, basilar crackles, dullness at the right base. ABDOMEN: Soft, bowel sounds are good. There is no mass. EXTREMITIES: There is no cyanosis. LYMPHATICS: There is no lymphadenopathy. SKIN: Chronic changes. NEUROLOGIC: Alert. LABORATORY DATA: I reviewed the following lab data: Chest x-ray shows increased vascular marking right lower lobe infiltrates/atelectasis/effusion. WBC 5.7, hemoglobin 8.7, platelets 79. Sodium 141, potassium 4, chloride 101, CO2 of 24, glucose 274, BUN 46, creatinine 7.6. Troponin 0.14. Influenza A and B negative. IMPRESSION: 1. Acute hypoxemic respiratory failure, multifactorial in etiology. 2. Abnormal chest x-ray. 3. Pneumonia. 4. Acute diastolic congestive heart failure. 5. Acute bronchospasm, wheezing. 6. End-stage renal disease, on hemodialysis. 7. History of tuberculosis, treated. 8. Diabetes mellitus. 9. Hypertension. PLAN AND RECOMMENDATIONS: 1. Titrate FiO2 to keep O2 saturation 92%. 2. Bronchodilator. 3. Add inhaled corticosteroid. 4. The patient does need aggressive hemodialysis. Nephrology is consulted. Continue antibiotic. 4. Heparin for DVT prophylaxis. 5. Protonix for stress ulcer prophylaxis. 6. Monitor blood glucose. 7. Monitor respiratory status very closely. 8. The findings and recommendations were discussed with RN. Thank you very much for allowing me to participate in care of this very nice lady. BHAVNA JIMENEZ M.D. DR: VIMAL/humza JOB#: [id number] / [id number] HEATHER
--- NOTE | 2016-09-05 10:48 | PDOC ---
IM PROGRESS NOTES- Subjective Subjective None.Patient is non verbal. Objective Vitals Vital Signs Date Time Temp Pulse Resp B/P Pulse Ox O2 Delivery O2 Flow Rate FiO2 09/05/16 09:30 84 155/63 09/05/16 07:23 100 Nasal Cannula 3.0 09/05/16 07:00 98.3 20 98.3 Input & Output Intake and Output 09/05/16 07:00 Intake Total 530 ml Output Total 0 ml Balance 530 ml Intake Oral 230 ml IV Total 300 ml Output Urine Total 0 ml Physical Exam Physical Exam General appearance - alert,ill appearing, and in no distress and oriented to person, place, and time Mental Status - alert Head - normal Chest - decreased BS at bases, no wheezes, rales or rhonchi, symmetric air entry Heart - S1 and S2 normal Abdomen - soft, nontender, nondistended, no masses or organomegaly Neurological - alert and oriented Musculoskeletal - no muscular tenderness noted Extremities - trace pedal edema Skin - warm and dry Labs Laboratory Tests Test 09/04/16 12:55 09/04/16 13:30 09/04/16 17:57 09/04/16 19:15 White Blood Count 7.8x10^3/uL (4.0-11.0) Red Blood Count 3.46x10^6/uL (3.50-5.40) Hemoglobin 10.5g/dL (12.0-15.5) Hematocrit 31.2% (36.0-47.0) Mean Corpuscular Volume 90fL (79-100) Mean Corpuscular Hemoglobin 30pg (25-35) Mean Corpuscular Hemoglobin Concent 34g/dL (31-37) Red Cell Distribution Width 15.3% (11.5-14.5) Platelet Count 94x10^3/uL (140-400) Neutrophils (%) (Auto) 75% (31-73) Lymphocytes (%) (Auto) 14% (24-48) Monocytes (%) (Auto) 9% (0-9) Eosinophils (%) (Auto) 2% (0-3) Basophils (%) (Auto) 0% (0-3) Neutrophils # (Auto) 5.8x10^3uL (1.8-7.7) Lymphocytes # (Auto) 1.1x10^3/uL (1.0-4.8) Monocytes # (Auto) 0.7x10^3/uL (0.0-1.1) Eosinophils # (Auto) 0.2x10^3/uL (0.0-0.7) Basophils # (Auto) 0.0x10^3/uL (0.0-0.2) Sodium Level 141mmol/L (136-145) Potassium Level 3.8mmol/L (3.5-5.1) Chloride Level 100mmol/L (98-107) Carbon Dioxide Level 28mmol/L (21-32) Anion Gap 13 (6-14) Blood Urea Nitrogen 41mg/dL (7-20) Creatinine 7.0mg/dL (0.6-1.0) Estimated GFR (Cockcroft-Gault) 5.7 Glucose Level 157mg/dL (70-99) Lactic Acid Level 1.5mmol/L (0.4-2.0) Calcium Level 8.7mg/dL (8.5-10.1) Troponin I Quantitative 0.196ng/mL (0.000-0.055) 0.132ng/mL (0.000-0.055) HC-Vnf-D-Type Natriuretic Peptide > 34037fn/mL (0-449) Influenza Type A Antigen Negative (NEGATIVE) Influenza Type B Antigen Negative (NEGATIVE) Glucose (Fingerstick) 289mg/dL (70-99) Test 09/04/16 20:55 09/05/16 02:30 09/05/16 05:00 09/05/16 08:31 Glucose (Fingerstick) 280mg/dL (70-99) 150mg/dL (70-99) White Blood Count 5.7x10^3/uL (4.0-11.0) Red Blood Count 2.97x10^6/uL (3.50-5.40) Hemoglobin 8.7g/dL (12.0-15.5) Hematocrit 27.4% (36.0-47.0) Mean Corpuscular Volume 92fL (79-100) Mean Corpuscular Hemoglobin 29pg (25-35) Mean Corpuscular Hemoglobin Concent 32g/dL (31-37) Red Cell Distribution Width 15.3% (11.5-14.5) Platelet Count 79x10^3/uL (140-400) Neutrophils (%) (Auto) 95% (31-73) Lymphocytes (%) (Auto) 4% (24-48) Monocytes (%) (Auto) 2% (0-9) Eosinophils (%) (Auto) 0% (0-3) Basophils (%) (Auto) 0% (0-3) Neutrophils # (Auto) 5.4x10^3uL (1.8-7.7) Lymphocytes # (Auto) 0.2x10^3/uL (1.0-4.8) Monocytes # (Auto) 0.1x10^3/uL (0.0-1.1) Eosinophils # (Auto) 0.0x10^3/uL (0.0-0.7) Basophils # (Auto) 0.0x10^3/uL (0.0-0.2) Sodium Level 141mmol/L (136-145) Potassium Level 4.0mmol/L (3.5-5.1) Chloride Level 101mmol/L (98-107) Carbon Dioxide Level 24mmol/L (21-32) Anion Gap 16 (6-14) Blood Urea Nitrogen 46mg/dL (7-20) Creatinine 7.6mg/dL (0.6-1.0) Estimated GFR (Cockcroft-Gault) 5.2 Glucose Level 274mg/dL (70-99) Calcium Level 8.3mg/dL (8.5-10.1) Troponin I Quantitative 0.144ng/mL (0.000-0.055) Triglycerides Level 110mg/dL (0-150) Cholesterol Level 155mg/dL (0-200) LDL Cholesterol, Calculated 101mg/dL (0-100) VLDL Cholesterol, Calculated 22mg/dL (0-40) HDL Cholesterol 32mg/dL (40-60) Cholesterol/HDL Ratio 4.8 Laboratory Tests Test 09/04/16 12:55 09/04/16 13:30 09/04/16 17:57 09/04/16 19:15 White Blood Count 7.8x10^3/uL (4.0-11.0) Red Blood Count 3.46x10^6/uL (3.50-5.40) Hemoglobin 10.5g/dL (12.0-15.5) Hematocrit 31.2% (36.0-47.0) Mean Corpuscular Volume 90fL (79-100) Mean Corpuscular Hemoglobin 30pg (25-35) Mean Corpuscular Hemoglobin Concent 34g/dL (31-37) Red Cell Distribution Width 15.3% (11.5-14.5) Platelet Count 94x10^3/uL (140-400) Neutrophils (%) (Auto) 75% (31-73) Lymphocytes (%) (Auto) 14% (24-48) Monocytes (%) (Auto) 9% (0-9) Eosinophils (%) (Auto) 2% (0-3) Basophils (%) (Auto) 0% (0-3) Neutrophils # (Auto) 5.8x10^3uL (1.8-7.7) Lymphocytes # (Auto) 1.1x10^3/uL (1.0-4.8) Monocytes # (Auto) 0.7x10^3/uL (0.0-1.1) Eosinophils # (Auto) 0.2x10^3/uL (0.0-0.7) Basophils # (Auto) 0.0x10^3/uL (0.0-0.2) Sodium Level 141mmol/L (136-145) Potassium Level 3.8mmol/L (3.5-5.1) Chloride Level 100mmol/L (98-107) Carbon Dioxide Level 28mmol/L (21-32) Anion Gap 13 (6-14) Blood Urea Nitrogen 41mg/dL (7-20) Creatinine 7.0mg/dL (0.6-1.0) Estimated GFR (Cockcroft-Gault) 5.7 Glucose Level 157mg/dL (70-99) Lactic Acid Level 1.5mmol/L (0.4-2.0) Calcium Level 8.7mg/dL (8.5-10.1) Troponin I Quantitative 0.196ng/mL (0.000-0.055) 0.132ng/mL (0.000-0.055) UZ-Lpf-I-Type Natriuretic Peptide > 78695nm/mL (0-449) Influenza Type A Antigen Negative (NEGATIVE) Influenza Type B Antigen Negative (NEGATIVE) Glucose (Fingerstick) 289mg/dL (70-99) Test 09/04/16 20:55 09/05/16 02:30 09/05/16 05:00 09/05/16 08:31 Glucose (Fingerstick) 280mg/dL (70-99) 150mg/dL (70-99) White Blood Count 5.7x10^3/uL (4.0-11.0) Red Blood Count 2.97x10^6/uL (3.50-5.40) Hemoglobin 8.7g/dL (12.0-15.5) Hematocrit 27.4% (36.0-47.0) Mean Corpuscular Volume 92fL (79-100) Mean Corpuscular Hemoglobin 29pg (25-35) Mean Corpuscular Hemoglobin Concent 32g/dL (31-37) Red Cell Distribution Width 15.3% (11.5-14.5) Platelet Count 79x10^3/uL (140-400) Neutrophils (%) (Auto) 95% (31-73) Lymphocytes (%) (Auto) 4% (24-48) Monocytes (%) (Auto) 2% (0-9) Eosinophils (%) (Auto) 0% (0-3) Basophils (%) (Auto) 0% (0-3) Neutrophils # (Auto) 5.4x10^3uL (1.8-7.7) Lymphocytes # (Auto) 0.2x10^3/uL (1.0-4.8) Monocytes # (Auto) 0.1x10^3/uL (0.0-1.1) Eosinophils # (Auto) 0.0x10^3/uL (0.0-0.7) Basophils # (Auto) 0.0x10^3/uL (0.0-0.2) Sodium Level 141mmol/L (136-145) Potassium Level 4.0mmol/L (3.5-5.1) Chloride Level 101mmol/L (98-107) Carbon Dioxide Level 24mmol/L (21-32) Anion Gap 16 (6-14) Blood Urea Nitrogen 46mg/dL (7-20) Creatinine 7.6mg/dL (0.6-1.0) Estimated GFR (Cockcroft-Gault) 5.2 Glucose Level 274mg/dL (70-99) Calcium Level 8.3mg/dL (8.5-10.1) Troponin I Quantitative 0.144ng/mL (0.000-0.055) Triglycerides Level 110mg/dL (0-150) Cholesterol Level 155mg/dL (0-200) LDL Cholesterol, Calculated 101mg/dL (0-100) VLDL Cholesterol, Calculated 22mg/dL (0-40) HDL Cholesterol 32mg/dL (40-60) Cholesterol/HDL Ratio 4.8 Meds Current Medications Acetaminophen (Tylenol) 650 mg PRN Q6HRS PRN PO MILD PAIN / TEMP; Start at 16:00 Acetaminophen 650 mg 650 mg PRN Q4HRS PRN PO FEVER; Start 09/04/16 at 14:15; Stop 09/05/16 at 14:14 Albuterol Sulfate (Ventolin Neb Soln) 2.5 mg PRN Q4HRS PRN NEB SHORTNESS OF BREATH; Start 09/04/16 at 16:45 Albuterol Sulfate (Ventolin Neb Soln) 5 mg 1X ONCE INH Last administered on 12:17; Start 09/04/16 at 12:15; Stop 09/04/16 at 12:16; Status DC Albuterol/ Ipratropium (Duoneb) 3 ml 1X ONCE NEB Last administered on 12:17; Start 09/04/16 at 12:15; Stop 09/04/16 at 12:16; Status DC Albuterol/ Ipratropium (Duoneb) 3 ml QID NEB Last administered on 09/05/16 07: 23; Start 09/04/16 at 17:00 Amlodipine Besylate (Norvasc) 10 mg DAILY PO Last administered on 09/05/16 09: 22; Start 09/05/16 at 09:00 Aspirin (Kimber Aspirin) 325 mg DAILYWBKFT PO Last administered on 09/05/16 09: 21; Start 09/05/16 at 08:00 Aspirin (Children'S Aspirin) 324 mg 1X ONCE PO Last administered on 09/04/16 14:30; Start 09/04/16 at 13:45; Stop 09/04/16 at 13:46; Status DC Budesonide (Pulmicort) 0.5 mg RTBID NEB ; Start 09/05/16 at 20:00 Clonidine HCl (Catapres) 0.1 mg PRN Q6HRS PRN PO HYPERTENSION, SEE COMMENTS; Start 09/04/16 at 16:00 Darbepoetin Azeem (Aranesp) 25 mcg WEEKLYHS SQ Last administered on 09/04/16 21 :10; Start 09/04/16 at 21:00 Dextrose (Dextrose 50%-Water Syringe) 12.5 gm PRN Q15MIN PRN IV SEE COMMENTS; Start 09/04/16 at 16:00 Folic Acid (Folic Acid) 1 mg DAILY PO Last administered on 09/05/16 09:21; Start 09/05/16 at 09:00 Heparin Sodium (Porcine) 5,000 unit Q8HRS SQ Last administered on 09/05/16 05: 46; Start 09/04/16 at 22:00 Hydralazine HCl (Apresoline) 25 mg PRN TID PRN PO HYPERTENSION, SEE COMMENTS; Start 09/04/16 at 16:00 Insulin Aspart (Novolog) 0-7 UNITS TIDWMEALS SQ Last administered on 09/04/16 18:19; Start 09/04/16 at 17:00 Lisinopril (Prinivil) 5 mg DAILY PO Last administered on 09/05/16 09:30; Start 09/05/16 at 09:00 Morphine Sulfate 2 mg PRN Q2HR PRN IV PAIN; Start 09/04/16 at 14:15; Stop 09/05 at 14:14 Non-Formulary Medication 2.5 mg PRN Q4HRS PRN NEB SHORTNESS OF BREATH; Start at 16:00; Stop 09/04/16 at 16:34; Status DC Ondansetron HCl (Zofran) 4 mg PRN Q8HRS PRN IV NAUSEA/VOMITING; Start 09/04/16 at 14:15; Stop 09/05/16 at 14:14 Pantoprazole Sodium (Protonix) 40 mg BIDAC PO Last administered on 09/05/16 09 :21; Start 09/04/16 at 16:30 Piperacillin Sod/ Tazobactam Sod 2.25 gm/Sodium Chloride 50 ml @ 100 mls/hr ONCE ONCE IV Last administered on 09/04/16 13:32; Start 09/04/16 at 13:00; Stop 09/04/16 at 13:29; Status DC Piperacillin Sod/ Tazobactam Sod 2.25 gm/Sodium Chloride 50 ml @ 100 mls/hr Q8HRS IV Last administered on 09/05/16 05:37; Start 09/04/16 at 22:00 Piperacillin Sod/ Tazobactam Sod 1 each 1 each PRN DAILY PRN MC SEE COMMENTS; Start 09/04/16 at 13:00 Polyethylene Glycol (miraLAX PACKET) 17 gm DAILY PO Last administered on 09:22; Start 09/05/16 at 09:00 Prednisone (Prednisone) 60 mg 1X ONCE PO Last administered on 09/04/16 12:41 ; Start 09/04/16 at 12:15; Stop 09/04/16 at 12:16; Status DC Pyridoxine HCl (Vitamin B-6) 50 mg DAILY PO ; Start 09/05/16 at 09:00 Senna/Docusate Sodium (Senna Plus) 1 tab QHS PO Last administered on 09/04/16 21:12; Start 09/04/16 at 21:00 Simethicone (Gas-X) 80 mg PRN AFTMEALHC PRN PO GAS / BLOATING; Start 09/04/16 at 16:00 Vancomycin HCl 1 each 1X ONCE MC ; Start 09/06/16 at 14:00; Stop 09/06/16 at 14 :01 Vancomycin HCl (Vanco Per Pharmacy) 1 each PRN DAILY PRN MC SEE COMMENTS Last administered on 09/04/16 16:58; Start 09/04/16 at 13:00 Vancomycin HCl/ Sodium Chloride (Iv Sodium Chloride 0.9% 250ml) 250 ml @ 166.667 mls/hr 1X ONCE IV Last administered on 09/04/16 14:26; Start at 13:00; Stop 09/04/16 at 14:29; Status DC Vancomycin HCl/ Sodium Chloride (Iv Sodium Chloride 0.9% 250ml) 250 ml @ 166.667 mls/hr 3X/WEEK IV ; Start 09/07/16 at 09:00; Status UNV Assessment Assessment 1. Pneumonia. 2. Heart failure, diastolic, chronic. 3. End-stage renal disease, on dialysis Wednesday, Wednesday and Wednesday. 4. Diabetes, insulin-dependent. 5. Hypertension. 6. 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 Plan: On Zosyn.Received one dose of IV Vancomycin. Continue HD. Improving. Plan Plan For more details regarding further plans, please refer to the orders. ALISON TAVERAS MD Sep 05, 2016 10:48
[2016-09-05 11:00] VITALS: BP 168/79
[2016-09-05 11:58] LABS: NUCLEATED RBC 1
[2016-09-05 11:59] LABS: ANISOCYTOSIS SLIGHT; PLT ESTIMATE DECREASED (ADEQUATE)
[2016-09-05 15:00] VITALS: BP 127/59
[2016-09-05] MEDS: PYRIDOXINE 50 MG TABLET. PO SCH (18:03)
[2016-09-05 19:00] VITALS: BP 133/61
[2016-09-05] MEDS: BUDESONIDE 0.5 MG/2 ML NEBU. NEB SCH (19:32)
[2016-09-05] MEDS: SENNOSIDES/DOCUSATE 8.6/50MG TABLET. PO SCH (21:00)
[2016-09-05 23:00] VITALS: BP 159/73
[2016-09-06 03:00] VITALS: BP 147/78
--- NOTE | 2016-09-06 05:42 | PDOC ---
PULMONARY PROGRESS NOTES Subjective on , doesn't speak [place], agitated at times per rn Vitals Vital Signs Date Time Temp Pulse Resp B/P Pulse Ox O2 Delivery O2 Flow Rate FiO2 09/06/16 03:00 98.6 106 18 147/78 95 Nasal Cannula 1.0 98.6 General: Alert, No acute distress HEENT: Other (nc at perrl ) Lungs: Wheezing, Crackles Cardiovascular: S1, S2 Abdomen: Soft, Non-tender Neuro Exam: Alert Extremities: No Edema Skin: Warm Labs Laboratory Tests Test 09/04/16 12:55 09/04/16 13:30 09/04/16 17:57 09/04/16 19:15 White Blood Count 7.8x10^3/uL (4.0-11.0) Red Blood Count 3.46x10^6/uL (3.50-5.40) Hemoglobin 10.5g/dL (12.0-15.5) Hematocrit 31.2% (36.0-47.0) Mean Corpuscular Volume 90fL (79-100) Mean Corpuscular Hemoglobin 30pg (25-35) Mean Corpuscular Hemoglobin Concent 34g/dL (31-37) Red Cell Distribution Width 15.3% (11.5-14.5) Platelet Count 94x10^3/uL (140-400) Neutrophils (%) (Auto) 75% (31-73) Lymphocytes (%) (Auto) 14% (24-48) Monocytes (%) (Auto) 9% (0-9) Eosinophils (%) (Auto) 2% (0-3) Basophils (%) (Auto) 0% (0-3) Neutrophils # (Auto) 5.8x10^3uL (1.8-7.7) Lymphocytes # (Auto) 1.1x10^3/uL (1.0-4.8) Monocytes # (Auto) 0.7x10^3/uL (0.0-1.1) Eosinophils # (Auto) 0.2x10^3/uL (0.0-0.7) Basophils # (Auto) 0.0x10^3/uL (0.0-0.2) Sodium Level 141mmol/L (136-145) Potassium Level 3.8mmol/L (3.5-5.1) Chloride Level 100mmol/L (98-107) Carbon Dioxide Level 28mmol/L (21-32) Anion Gap 13 (6-14) Blood Urea Nitrogen 41mg/dL (7-20) Creatinine 7.0mg/dL (0.6-1.0) Estimated GFR (Cockcroft-Gault) 5.7 Glucose Level 157mg/dL (70-99) Lactic Acid Level 1.5mmol/L (0.4-2.0) Calcium Level 8.7mg/dL (8.5-10.1) Troponin I Quantitative 0.196ng/mL (0.000-0.055) 0.132ng/mL (0.000-0.055) HC-Bjw-J-Type Natriuretic Peptide > 64843lv/mL (0-449) Influenza Type A Antigen Negative (NEGATIVE) Influenza Type B Antigen Negative (NEGATIVE) Glucose (Fingerstick) 289mg/dL (70-99) Test 09/04/16 20:55 09/05/16 02:30 09/05/16 05:00 09/05/16 08:31 Glucose (Fingerstick) 280mg/dL (70-99) 150mg/dL (70-99) White Blood Count 5.7x10^3/uL (4.0-11.0) Red Blood Count 2.97x10^6/uL (3.50-5.40) Hemoglobin 8.7g/dL (12.0-15.5) Hematocrit 27.4% (36.0-47.0) Mean Corpuscular Volume 92fL (79-100) Mean Corpuscular Hemoglobin 29pg (25-35) Mean Corpuscular Hemoglobin Concent 32g/dL (31-37) Red Cell Distribution Width 15.3% (11.5-14.5) Platelet Count 79x10^3/uL (140-400) Neutrophils (%) (Auto) 95% (31-73) Lymphocytes (%) (Auto) 4% (24-48) Monocytes (%) (Auto) 2% (0-9) Eosinophils (%) (Auto) 0% (0-3) Basophils (%) (Auto) 0% (0-3) Neutrophils # (Auto) 5.4x10^3uL (1.8-7.7) Lymphocytes # (Auto) 0.2x10^3/uL (1.0-4.8) Monocytes # (Auto) 0.1x10^3/uL (0.0-1.1) Eosinophils # (Auto) 0.0x10^3/uL (0.0-0.7) Basophils # (Auto) 0.0x10^3/uL (0.0-0.2) Segmented Neutrophils % 82% (35-66) Band Neutrophils % 16% (0-9) Lymphocytes % 1% (24-48) Myelocytes % 1% (0-0) Nucleated Red Blood Cells 1 Platelet Estimate Decreased (ADEQUATE) Anisocytosis Slight Sodium Level 141mmol/L (136-145) Potassium Level 4.0mmol/L (3.5-5.1) Chloride Level 101mmol/L (98-107) Carbon Dioxide Level 24mmol/L (21-32) Anion Gap 16 (6-14) Blood Urea Nitrogen 46mg/dL (7-20) Creatinine 7.6mg/dL (0.6-1.0) Estimated GFR (Cockcroft-Gault) 5.2 Glucose Level 274mg/dL (70-99) Calcium Level 8.3mg/dL (8.5-10.1) Troponin I Quantitative 0.144ng/mL (0.000-0.055) Triglycerides Level 110mg/dL (0-150) Cholesterol Level 155mg/dL (0-200) LDL Cholesterol, Calculated 101mg/dL (0-100) VLDL Cholesterol, Calculated 22mg/dL (0-40) HDL Cholesterol 32mg/dL (40-60) Cholesterol/HDL Ratio 4.8 Test 09/05/16 12:06 09/05/16 16:52 Glucose (Fingerstick) 197mg/dL (70-99) 119mg/dL (70-99) Laboratory Tests Test 09/05/16 08:31 09/05/16 12:06 09/05/16 16:52 Glucose (Fingerstick) 150mg/dL (70-99) 197mg/dL (70-99) 119mg/dL (70-99) Medications Active Scripts Medications Dose Route/Sig Days Date Category Aspirin 325 Mg Tablet 325 Mg PO DAILYWBKFT 03/12/16 Rx Amox Tr-K Clv 500-125 Mg Tab (Amoxicillin/Potassium Clav) 1 Each Tablet 1 Tab PO Q24H 03/12/16 Rx Hydralazine Hcl 25 Mg Tablet 1 Tab PO TID PRN 02/27/16 Rx [Sennosides/Docusate Sodium] 1 TAB Tablet 1 Tab PO HS 01/11/15 Rx Gas-X (Simethicone) 80 Mg Tab.chew 80 Mg PO PRN AFTMEALHC PRN 30 01/11/15 Rx [Polyethylene Glycol 3350] 17 GM Packet 17 Gm PO DAILY 01/11/15 Rx Vitamin B-6 (Pyridoxine Hcl) 50 Mg Tablet 50 Mg PO DAILY 30 01/11/15 Rx Protonix (Pantoprazole Sodium) 40 Mg Tablet 40 Mg PO BIDAC 01/11/15 Rx Novolog Flexpen (Insulin Aspart) 300 Units/3 Ml Insuln.pen 0 Units SQ TIDWMEALS 30 01/11/15 Rx Folic Acid 1 Mg Tablet 1 Mg PO DAILY 01/11/15 Rx Aranesp Syringe (Darbepoetin Azeem In Polysorbat) 25 Mcg/0.42 Ml Disp.syrin 25 Mcg SQ WEEKLYHS 01/11/15 Rx Catapres (Clonidine Hcl) 0.1 Mg Tablet 0.1 Mg PO PRN Q6HRS PRN 01/11/15 Rx [Albuterol Sulfate] 2.5 MG/3 ML Nebu 2.5 Mg NEB PRN Q4HRS PRN 01/11/15 Rx Norvasc (Amlodipine Besylate) 10 Mg Tablet 10 Mg PO DAILY 01/11/15 Rx Tylenol (Acetaminophen) 325 Mg Tablet 650 Mg PO PRN Q6HRS PRN 30 01/11/15 Rx Comments cxr reviewed. Vascular congestion with moderate right pulmonary infiltrate and pleural fluid most likely due to congestive heart failure. A component of pneumonia cannot be excluded. Impression . IMPRESSION: 1. Acute hypoxemic respiratory failure, multifactorial in etiology. 2. Abnormal chest x-ray. 3. Pneumonia. 4. Acute diastolic congestive heart failure. 5. Acute bronchospasm, wheezing. 6. End-stage renal disease, on hemodialysis. 7. History of tuberculosis, treated. 8. Diabetes mellitus. 9. Hypertension. Plan . PLAN AND RECOMMENDATIONS: 1. Titrate FiO2 to keep O2 saturation 92%. 2. Bronchodilator. 3. inhaled corticosteroid. 4. The patient does need aggressive hemodialysis. Nephrology is consulted. 5. Protonix for stress ulcer prophylaxis. 6. Monitor blood glucose. 7. Monitor respiratory status very closely. 8. Continue antibiotic. 9. Heparin for DVT prophylaxis. The findings and recommendations were discussed with RN. BHAVNA JIMENEZ MD Sep 06, 2016 05:42
[2016-09-06 05:56] LABS: BASO % 0 % (0-3); EOS % 3 % (0-3); HEMATOCRIT 27.9 % (36.0-47.0); LYMPH # 0.8 x10^3/uL (1.0-4.8); LYMPH % 11 % (24-48); MEAN CORPUSCULAR HEMOGLOBIN 30 pg (25-35); MEAN CORPUSCULAR HGB CONC 32 g/dL (31-37); MEAN CORPUSCULAR VOLUME 92 fL (79-100); MONO % 8 % (0-9); NEUT % 78 % (31-73); PLATELET COUNT 102 x10^3/uL (140-400); RED BLOOD COUNT 3.02 x10^6/uL (3.50-5.40); RED CELL DISTRIBUTION WIDTH 15.4 % (11.5-14.5); WHITE BLOOD COUNT 7.4 x10^3/uL (4.0-11.0)
[2016-09-06] MEDS: PIPERACILLIN/TAZOBACTAM 2.25 GM in IV NORMAL SALINE 50ML 50 ML IV SCH ×3 (06:11→21:58)
[2016-09-06] MEDS: HEPARIN PF for SUB-Q USE 5,000 UNIT/0.5 ML VIAL. SQ SCH ×3 (06:20→22:08)
[2016-09-06 06:42] LABS: ALBUMIN 2.9 g/dL (3.4-5.0); ALBUMIN/GLOBULIN RATIO 0.8 (1.0-1.7); CALCIUM 8.2 mg/dL (8.5-10.1); CREATININE 8.9 mg/dL (0.6-1.0); GFR 4.3; POTASSIUM 3.2 mmol/L (3.5-5.1); TOTAL BILIRUBIN 0.7 mg/dL (0.2-1.0); TOTAL PROTEIN 6.4 g/dL (6.4-8.2)
[2016-09-06 07:00] VITALS: BP 174/77
[2016-09-06] MEDS: BUDESONIDE 0.5 MG/2 ML NEBU. NEB SCH ×2 (08:00→19:02)
[2016-09-06] MEDS: INSULIN ASPART 300 UNITS/3 ML INSULN.PEN SQ SCH ×3 (08:00→17:00)
[2016-09-06] MEDS: IPRATRPIUM/ALBUTEROL 0.5/2.5MG 3 ML NEBU. NEB SCH ×4 (08:02→19:02)
[2016-09-06] MEDS: ASPIRIN 325 MG TABLET PO SCH (08:23)
[2016-09-06] MEDS: FOLIC ACID 1 MG TABLET. PO SCH (08:24)
[2016-09-06] MEDS: PYRIDOXINE 50 MG TABLET. PO SCH (08:24)
[2016-09-06] MEDS: LISINOPRIL 5 MG TABLET. PO SCH (08:31)
[2016-09-06] MEDS: PANTOPRAZOLE 40 MG TABLET.DR. PO SCH ×2 (08:31→17:31)
[2016-09-06] MEDS: POLYETHYLENE GLYCOL 3350 17 GM PACKET. PO SCH (08:32)
[2016-09-06] MEDS: amLODIPine BESYLATE 10 MG TABLET PO SCH (08:32)
--- NOTE | 2016-09-06 09:52 | PDOC ---
PROGRESS NOTES Subjective Subjective comfortable, poor historian Objective Objective Vital Signs Date Time Temp Pulse Resp B/P Pulse Ox O2 Delivery O2 Flow Rate FiO2 09/06/16 08:32 81 174/77 09/06/16 08:08 94 Nasal Cannula 2.0 09/06/16 07:00 97.7 24 97.7 Intake and Output 09/06/16 07:00 Intake Total 350 ml Output Total 2 ml Balance 348 ml Intake Oral 350 ml Output Urine Total 0 ml Stool Total 2 ml # Voids 1 Physical Exam Abdomen: Soft, No tenderness Heart: Regular rate Extremities: No edema General: Alert, No acute distress HEENT: Atraumatic, PERRLA Lungs: Other Neck: Supple Assessment Assessment 1. Acute on chronic combined systolic and diastolic HF, LVEF 45% Continue fluid removal with HD per nephrology team 2. Mildly elevated troponin 0.144 in the setting of CRF and acute infection doubt ACS cardiac cath 03/08 with moderate 3-vessel disease; no significant obstructive CAD continue medical management. Add BB when pulmonary status stable/wheezing resolved 3. Acute on chronic respiratory failure multifactorial with infiltrates/poss PNA and HF continue abx. 4. ESRD with HD per nephrology 5. DM, II insulin requiring per PCP 6. Hypertension controlled Plan Plan of Care Problems Medical Problems: (1) Pneumonia Status: Acute (2) Pulmonary edema Status: Acute (3) SOB (shortness of breath) Status: Acute Comment Review of Relevant I have reviewed the following items reji (where applicable) has been applied. Labs Laboratory Tests Test 09/05/16 12:06 09/05/16 16:52 09/05/16 19:54 09/06/16 05:00 Glucose (Fingerstick) 197mg/dL (70-99) 119mg/dL (70-99) 169mg/dL (70-99) White Blood Count 7.4x10^3/uL (4.0-11.0) Red Blood Count 3.02x10^6/uL (3.50-5.40) Hemoglobin 9.0g/dL (12.0-15.5) Hematocrit 27.9% (36.0-47.0) Mean Corpuscular Volume 92fL (79-100) Mean Corpuscular Hemoglobin 30pg (25-35) Mean Corpuscular Hemoglobin Concent 32g/dL (31-37) Red Cell Distribution Width 15.4% (11.5-14.5) Platelet Count 102x10^3/uL (140-400) Neutrophils (%) (Auto) 78% (31-73) Lymphocytes (%) (Auto) 11% (24-48) Monocytes (%) (Auto) 8% (0-9) Eosinophils (%) (Auto) 3% (0-3) Basophils (%) (Auto) 0% (0-3) Neutrophils # (Auto) 5.8x10^3uL (1.8-7.7) Lymphocytes # (Auto) 0.8x10^3/uL (1.0-4.8) Monocytes # (Auto) 0.6x10^3/uL (0.0-1.1) Eosinophils # (Auto) 0.2x10^3/uL (0.0-0.7) Basophils # (Auto) 0.0x10^3/uL (0.0-0.2) Sodium Level 144mmol/L (136-145) Potassium Level 3.2mmol/L (3.5-5.1) Chloride Level 102mmol/L (98-107) Carbon Dioxide Level 25mmol/L (21-32) Anion Gap 17 (6-14) Blood Urea Nitrogen 57mg/dL (7-20) Creatinine 8.9mg/dL (0.6-1.0) Estimated GFR (Cockcroft-Gault) 4.3 BUN/Creatinine Ratio 6 (6-20) Glucose Level 163mg/dL (70-99) Calcium Level 8.2mg/dL (8.5-10.1) Total Bilirubin 0.7mg/dL (0.2-1.0) Aspartate Amino Transf (AST/SGOT) 34U/L (15-37) Alanine Aminotransferase (ALT/SGPT) 29U/L (14-59) Alkaline Phosphatase 97U/L (46-116) Total Protein 6.4g/dL (6.4-8.2) Albumin 2.9g/dL (3.4-5.0) Albumin/Globulin Ratio 0.8 (1.0-1.7) Microbiology 09/04/16 Blood Culture - Preliminary, Resulted NO GROWTH AFTER 1 DAY 09/06/16 Gram Stain - Final, Complete Medications Current Medications Budesonide (Pulmicort) 0.5 mg RTBID NEB Last administered on 09/06/16t 08:00; Start 09/05/16 at 20:00 Vancomycin HCl 1 each 1X ONCE MC ; Start 09/06/16 at 14:00; Stop 09/06/16 at 14 :01 Vancomycin HCl/ Sodium Chloride (Iv Sodium Chloride 0.9% 250ml) 250 ml @ 166.667 mls/hr 3X/WEEK IV ; Start 09/07/16 at 09:00; Status UNV Vitals/I & O Vital Sign - Last 24 Hours 09/05/16 09/05/16 09/05/16 09/05/16 11:00 11:38 15:00 15:17 Temp 98.5 98.6 98.5 98.6 Pulse 86 79 Resp 20 19 B/P 168/79 127/59 Pulse Ox 91 92 91 92 O2 Delivery Nasal Cannula Nasal Cannula Nasal Cannula Nasal Cannula O2 Flow Rate 1.0 2.0 1.0 2.0 09/05/16 09/05/16 09/05/16 09/05/16 19:00 19:33 19:45 23:00 Temp 97.3 97.3 97.3 97.3 Pulse 79 84 Resp 18 20 B/P 133/61 159/73 Pulse Ox 91 91 100 O2 Delivery Nasal Cannula Nasal Cannula Nasal Cannula Nasal Cannula O2 Flow Rate 1.0 2.0 1.0 1.0 09/06/16 09/06/16 09/06/16 09/06/16 03:00 07:00 08:07 08:08 Temp 98.6 97.7 98.6 97.7 Pulse 106 81 Resp 18 24 B/P 147/78 174/77 Pulse Ox 95 97 94 94 O2 Delivery Nasal Cannula Nasal Cannula Nasal Cannula Nasal Cannula O2 Flow Rate 1.0 2.0 2.0 2.0 09/06/16 09/06/16 08:31 08:32 Pulse 81 81 B/P 174/77 174/77 Intake and Output 09/05/16 09/05/16 09/06/16 15:00 23:00 07:00 Intake Total 250 ml 100 ml Output Total 2 ml Balance 248 ml 100 ml SHEILA NAIR MD Sep 06, 2016 09:52
--- NOTE | 2016-09-06 09:59 | PDOC ---
IM PROGRESS NOTES- Subjective Subjective None.Patient is non verbal. Objective Vitals Vital Signs Date Time Temp Pulse Resp B/P Pulse Ox O2 Delivery O2 Flow Rate FiO2 09/06/16 08:32 81 174/77 09/06/16 08:08 94 Nasal Cannula 2.0 09/06/16 07:00 97.7 24 97.7 Input & Output Intake and Output 09/06/16 07:00 Intake Total 350 ml Output Total 2 ml Balance 348 ml Intake Oral 350 ml Output Urine Total 0 ml Stool Total 2 ml # Voids 1 Physical Exam Physical Exam General appearance - alert,ill appearing, and in moderate distress Head - normal Chest - bilateral wheezing,rales,coarse breath sounds with deep seated secretions Heart - S1 and S2 normal Abdomen - soft, nontender, nondistended, no masses or organomegaly Neurological - alert and oriented Musculoskeletal - no muscular tenderness noted Extremities - trace pedal edema Skin - warm and dry Labs Laboratory Tests Test 09/04/16 12:55 09/04/16 13:30 09/04/16 17:57 09/04/16 19:15 White Blood Count 7.8x10^3/uL (4.0-11.0) Red Blood Count 3.46x10^6/uL (3.50-5.40) Hemoglobin 10.5g/dL (12.0-15.5) Hematocrit 31.2% (36.0-47.0) Mean Corpuscular Volume 90fL (79-100) Mean Corpuscular Hemoglobin 30pg (25-35) Mean Corpuscular Hemoglobin Concent 34g/dL (31-37) Red Cell Distribution Width 15.3% (11.5-14.5) Platelet Count 94x10^3/uL (140-400) Neutrophils (%) (Auto) 75% (31-73) Lymphocytes (%) (Auto) 14% (24-48) Monocytes (%) (Auto) 9% (0-9) Eosinophils (%) (Auto) 2% (0-3) Basophils (%) (Auto) 0% (0-3) Neutrophils # (Auto) 5.8x10^3uL (1.8-7.7) Lymphocytes # (Auto) 1.1x10^3/uL (1.0-4.8) Monocytes # (Auto) 0.7x10^3/uL (0.0-1.1) Eosinophils # (Auto) 0.2x10^3/uL (0.0-0.7) Basophils # (Auto) 0.0x10^3/uL (0.0-0.2) Sodium Level 141mmol/L (136-145) Potassium Level 3.8mmol/L (3.5-5.1) Chloride Level 100mmol/L (98-107) Carbon Dioxide Level 28mmol/L (21-32) Anion Gap 13 (6-14) Blood Urea Nitrogen 41mg/dL (7-20) Creatinine 7.0mg/dL (0.6-1.0) Estimated GFR (Cockcroft-Gault) 5.7 Glucose Level 157mg/dL (70-99) Lactic Acid Level 1.5mmol/L (0.4-2.0) Calcium Level 8.7mg/dL (8.5-10.1) Troponin I Quantitative 0.196ng/mL (0.000-0.055) 0.132ng/mL (0.000-0.055) TX-Nan-J-Type Natriuretic Peptide > 11803al/mL (0-449) Influenza Type A Antigen Negative (NEGATIVE) Influenza Type B Antigen Negative (NEGATIVE) Glucose (Fingerstick) 289mg/dL (70-99) Test 09/04/16 20:55 09/05/16 02:30 09/05/16 05:00 09/05/16 08:31 Glucose (Fingerstick) 280mg/dL (70-99) 150mg/dL (70-99) White Blood Count 5.7x10^3/uL (4.0-11.0) Red Blood Count 2.97x10^6/uL (3.50-5.40) Hemoglobin 8.7g/dL (12.0-15.5) Hematocrit 27.4% (36.0-47.0) Mean Corpuscular Volume 92fL (79-100) Mean Corpuscular Hemoglobin 29pg (25-35) Mean Corpuscular Hemoglobin Concent 32g/dL (31-37) Red Cell Distribution Width 15.3% (11.5-14.5) Platelet Count 79x10^3/uL (140-400) Neutrophils (%) (Auto) 95% (31-73) Lymphocytes (%) (Auto) 4% (24-48) Monocytes (%) (Auto) 2% (0-9) Eosinophils (%) (Auto) 0% (0-3) Basophils (%) (Auto) 0% (0-3) Neutrophils # (Auto) 5.4x10^3uL (1.8-7.7) Lymphocytes # (Auto) 0.2x10^3/uL (1.0-4.8) Monocytes # (Auto) 0.1x10^3/uL (0.0-1.1) Eosinophils # (Auto) 0.0x10^3/uL (0.0-0.7) Basophils # (Auto) 0.0x10^3/uL (0.0-0.2) Segmented Neutrophils % 82% (35-66) Band Neutrophils % 16% (0-9) Lymphocytes % 1% (24-48) Myelocytes % 1% (0-0) Nucleated Red Blood Cells 1 Platelet Estimate Decreased (ADEQUATE) Anisocytosis Slight Sodium Level 141mmol/L (136-145) Potassium Level 4.0mmol/L (3.5-5.1) Chloride Level 101mmol/L (98-107) Carbon Dioxide Level 24mmol/L (21-32) Anion Gap 16 (6-14) Blood Urea Nitrogen 46mg/dL (7-20) Creatinine 7.6mg/dL (0.6-1.0) Estimated GFR (Cockcroft-Gault) 5.2 Glucose Level 274mg/dL (70-99) Calcium Level 8.3mg/dL (8.5-10.1) Troponin I Quantitative 0.144ng/mL (0.000-0.055) Triglycerides Level 110mg/dL (0-150) Cholesterol Level 155mg/dL (0-200) LDL Cholesterol, Calculated 101mg/dL (0-100) VLDL Cholesterol, Calculated 22mg/dL (0-40) HDL Cholesterol 32mg/dL (40-60) Cholesterol/HDL Ratio 4.8 Test 09/05/16 12:06 09/05/16 16:52 09/05/16 19:54 09/06/16 05:00 Glucose (Fingerstick) 197mg/dL (70-99) 119mg/dL (70-99) 169mg/dL (70-99) White Blood Count 7.4x10^3/uL (4.0-11.0) Red Blood Count 3.02x10^6/uL (3.50-5.40) Hemoglobin 9.0g/dL (12.0-15.5) Hematocrit 27.9% (36.0-47.0) Mean Corpuscular Volume 92fL (79-100) Mean Corpuscular Hemoglobin 30pg (25-35) Mean Corpuscular Hemoglobin Concent 32g/dL (31-37) Red Cell Distribution Width 15.4% (11.5-14.5) Platelet Count 102x10^3/uL (140-400) Neutrophils (%) (Auto) 78% (31-73) Lymphocytes (%) (Auto) 11% (24-48) Monocytes (%) (Auto) 8% (0-9) Eosinophils (%) (Auto) 3% (0-3) Basophils (%) (Auto) 0% (0-3) Neutrophils # (Auto) 5.8x10^3uL (1.8-7.7) Lymphocytes # (Auto) 0.8x10^3/uL (1.0-4.8) Monocytes # (Auto) 0.6x10^3/uL (0.0-1.1) Eosinophils # (Auto) 0.2x10^3/uL (0.0-0.7) Basophils # (Auto) 0.0x10^3/uL (0.0-0.2) Sodium Level 144mmol/L (136-145) Potassium Level 3.2mmol/L (3.5-5.1) Chloride Level 102mmol/L (98-107) Carbon Dioxide Level 25mmol/L (21-32) Anion Gap 17 (6-14) Blood Urea Nitrogen 57mg/dL (7-20) Creatinine 8.9mg/dL (0.6-1.0) Estimated GFR (Cockcroft-Gault) 4.3 BUN/Creatinine Ratio 6 (6-20) Glucose Level 163mg/dL (70-99) Calcium Level 8.2mg/dL (8.5-10.1) Total Bilirubin 0.7mg/dL (0.2-1.0) Aspartate Amino Transf (AST/SGOT) 34U/L (15-37) Alanine Aminotransferase (ALT/SGPT) 29U/L (14-59) Alkaline Phosphatase 97U/L (46-116) Total Protein 6.4g/dL (6.4-8.2) Albumin 2.9g/dL (3.4-5.0) Albumin/Globulin Ratio 0.8 (1.0-1.7) Laboratory Tests Test 09/05/16 12:06 09/05/16 16:52 09/05/16 19:54 09/06/16 05:00 Glucose (Fingerstick) 197mg/dL (70-99) 119mg/dL (70-99) 169mg/dL (70-99) White Blood Count 7.4x10^3/uL (4.0-11.0) Red Blood Count 3.02x10^6/uL (3.50-5.40) Hemoglobin 9.0g/dL (12.0-15.5) Hematocrit 27.9% (36.0-47.0) Mean Corpuscular Volume 92fL (79-100) Mean Corpuscular Hemoglobin 30pg (25-35) Mean Corpuscular Hemoglobin Concent 32g/dL (31-37) Red Cell Distribution Width 15.4% (11.5-14.5) Platelet Count 102x10^3/uL (140-400) Neutrophils (%) (Auto) 78% (31-73) Lymphocytes (%) (Auto) 11% (24-48) Monocytes (%) (Auto) 8% (0-9) Eosinophils (%) (Auto) 3% (0-3) Basophils (%) (Auto) 0% (0-3) Neutrophils # (Auto) 5.8x10^3uL (1.8-7.7) Lymphocytes # (Auto) 0.8x10^3/uL (1.0-4.8) Monocytes # (Auto) 0.6x10^3/uL (0.0-1.1) Eosinophils # (Auto) 0.2x10^3/uL (0.0-0.7) Basophils # (Auto) 0.0x10^3/uL (0.0-0.2) Sodium Level 144mmol/L (136-145) Potassium Level 3.2mmol/L (3.5-5.1) Chloride Level 102mmol/L (98-107) Carbon Dioxide Level 25mmol/L (21-32) Anion Gap 17 (6-14) Blood Urea Nitrogen 57mg/dL (7-20) Creatinine 8.9mg/dL (0.6-1.0) Estimated GFR (Cockcroft-Gault) 4.3 BUN/Creatinine Ratio 6 (6-20) Glucose Level 163mg/dL (70-99) Calcium Level 8.2mg/dL (8.5-10.1) Total Bilirubin 0.7mg/dL (0.2-1.0) Aspartate Amino Transf (AST/SGOT) 34U/L (15-37) Alanine Aminotransferase (ALT/SGPT) 29U/L (14-59) Alkaline Phosphatase 97U/L (46-116) Total Protein 6.4g/dL (6.4-8.2) Albumin 2.9g/dL (3.4-5.0) Albumin/Globulin Ratio 0.8 (1.0-1.7) Meds Current Medications Budesonide (Pulmicort) 0.5 mg RTBID NEB Last administered on 09/06/16t 08:00; Start 09/05/16 at 20:00 Vancomycin HCl 1 each 1X ONCE MC ; Start 09/06/16 at 14:00; Stop 09/06/16 at 14 :01 Vancomycin HCl/ Sodium Chloride (Iv Sodium Chloride 0.9% 250ml) 250 ml @ 166.667 mls/hr 3X/WEEK IV ; Start 09/07/16 at 09:00; Status UNV Assessment Assessment 1. Pneumonia. 2. Heart failure, diastolic, chronic. 3. End-stage renal disease, on dialysis Wednesday, Wednesday and Wednesday. 4. Diabetes, insulin-dependent. 5. Hypertension. 6. 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 Plan: On Zosyn.Received one dose of IV Vancomycin. Patient is much worse- did not respond to breathing RX. IShe will get emergent HD this AM. Continue HD. Improving. Plan Plan For more details regarding further plans, please refer to the orders. ALISON TAVERAS MD Sep 06, 2016 09:59
--- NOTE | 2016-09-06 10:06 | CONS ---
DATE OF CONSULTATION: 09/05/2016 REFERRING PHYSICIAN: Dr. Blanche Woods REASON FOR CONSULTATION: Renal failure. HISTORY OF PRESENT ILLNESS: This is a 75-year-old female with history of end-stage renal disease, hemodialysis dependent, ____ diabetes mellitus. The patient presented to the hospital with increased shortness of breath and is felt to have infectious pneumonitis and being treated for the same. The patient needed ongoing dialysis throughout her hospital course. PAST MEDICAL HISTORY: Diabetes mellitus, hypertension, end-stage renal disease hemodialysis dependent, anemia of chronic kidney disease, secondary hyperparathyroidism, renal disease, cardiomyopathy with EF of 55-60%, hyperlipidemia, atypical tuberculosis-treated. ALLERGIES: None. MEDICATIONS: Reviewed. FAMILY HISTORY: Noncontributory. SOCIAL HISTORY: The patient resides with assistance from family. No tobacco, no ethanol use. REVIEW OF SYSTEMS: No headaches, sinus problem, nasal drainage, epistaxis, change in vision or hearing. No difficulty swallowing. No fever or chills. She has had cough and shortness of breath. No abdominal pain or upper or lower gastrointestinal blood loss. No nausea, vomiting, diarrhea, seizures or malignancies. PHYSICAL EXAMINATION: GENERAL APPEARANCE: The patient awake. HEENT: Bitemporal wasting and eyes are sunken. NECK: No increased JVD. No thyromegaly, mass, or adenopathy. LUNGS: Few wheezes and rhonchi bilaterally. CARDIAC: Without S3 or rub. ABDOMEN: Soft, nontender, no bruits. EXTREMITIES: Without edema. NEUROPSYCHIATRIC: The patient follows appropriately. LABORATORY DATA: White count 5.7, hemoglobin 8.7, potassium 4, CO2 24, creatinine 7.6, GFR 5.2. IMPRESSION: 1. End-stage renal disease, hemodialysis dependent ____ diabetic nephropathy. 2. Infectious pneumonitis. 3. Diabetes mellitus. 4. Anemia of chronic kidney disease. RECOMMENDATIONS: 1. Ongoing dialysis on Wednesday, Wednesday and Wednesday. 2. Antibiotics and respiratory treatments. EMELYN MILLER MD DR: JAREK/humza JOB#: [id number] / [id number]
[2016-09-06] MEDS ORDERED: IV NORMAL SALINE 1000ML BAG 1,000 ML IV PRN (11:01)
[2016-09-06] MEDS ORDERED: DIALYSIS PATIENT. MC PRN ×2 (11:15)
--- NOTE | 2016-09-06 11:31 | PDOC ---
PROGRESS NOTES Subjective Subjective SEEN IN FOLLOW UP OF ESRD. SOB THIS AM Objective Objective Vital Signs Date Time Temp Pulse Resp B/P Pulse Ox O2 Delivery O2 Flow Rate FiO2 09/06/16 08:32 81 174/77 09/06/16 08:08 94 Nasal Cannula 2.0 09/06/16 07:00 97.7 24 97.7 Intake and Output 09/06/16 07:00 Intake Total 350 ml Output Total 2 ml Balance 348 ml Intake Oral 350 ml Output Urine Total 0 ml Stool Total 2 ml # Voids 1 Physical Exam Abdomen: Normal bowel sounds, Soft, No tenderness, No hepatosplenomegaly, No masses Heart: Regular rate, Normal S1, Normal S2, No murmurs, Gallops Extremities: No clubbing, No cyanosis, No edema, Normal pulses, No tenderness/ swelling General: Alert Lungs: Other (BILAT RHONCHI AND RALES) Diagnosis RENAL FAILURE: ESRD Assessment Assessment Problems Medical Problems: (1) Pneumonia Status: Acute (2) Pulmonary edema Status: Acute (3) SOB (shortness of breath) Status: Acute Plan Plan of Care DIALYSIS TODAY FOR INCREASING LUNG WATER. DIALYSIS TOMORROW Comment Review of Relevant I have reviewed the following items reji (where applicable) has been applied. Labs Laboratory Tests Test 09/04/16 12:55 09/04/16 13:30 09/04/16 17:57 09/04/16 19:15 White Blood Count 7.8x10^3/uL (4.0-11.0) Red Blood Count 3.46x10^6/uL (3.50-5.40) Hemoglobin 10.5g/dL (12.0-15.5) Hematocrit 31.2% (36.0-47.0) Mean Corpuscular Volume 90fL (79-100) Mean Corpuscular Hemoglobin 30pg (25-35) Mean Corpuscular Hemoglobin Concent 34g/dL (31-37) Red Cell Distribution Width 15.3% (11.5-14.5) Platelet Count 94x10^3/uL (140-400) Neutrophils (%) (Auto) 75% (31-73) Lymphocytes (%) (Auto) 14% (24-48) Monocytes (%) (Auto) 9% (0-9) Eosinophils (%) (Auto) 2% (0-3) Basophils (%) (Auto) 0% (0-3) Neutrophils # (Auto) 5.8x10^3uL (1.8-7.7) Lymphocytes # (Auto) 1.1x10^3/uL (1.0-4.8) Monocytes # (Auto) 0.7x10^3/uL (0.0-1.1) Eosinophils # (Auto) 0.2x10^3/uL (0.0-0.7) Basophils # (Auto) 0.0x10^3/uL (0.0-0.2) Sodium Level 141mmol/L (136-145) Potassium Level 3.8mmol/L (3.5-5.1) Chloride Level 100mmol/L (98-107) Carbon Dioxide Level 28mmol/L (21-32) Anion Gap 13 (6-14) Blood Urea Nitrogen 41mg/dL (7-20) Creatinine 7.0mg/dL (0.6-1.0) Estimated GFR (Cockcroft-Gault) 5.7 Glucose Level 157mg/dL (70-99) Lactic Acid Level 1.5mmol/L (0.4-2.0) Calcium Level 8.7mg/dL (8.5-10.1) Troponin I Quantitative 0.196ng/mL (0.000-0.055) 0.132ng/mL (0.000-0.055) FX-Rci-O-Type Natriuretic Peptide > 06032lm/mL (0-449) Influenza Type A Antigen Negative (NEGATIVE) Influenza Type B Antigen Negative (NEGATIVE) Glucose (Fingerstick) 289mg/dL (70-99) Test 09/04/16 20:55 09/05/16 02:30 09/05/16 05:00 09/05/16 08:31 Glucose (Fingerstick) 280mg/dL (70-99) 150mg/dL (70-99) White Blood Count 5.7x10^3/uL (4.0-11.0) Red Blood Count 2.97x10^6/uL (3.50-5.40) Hemoglobin 8.7g/dL (12.0-15.5) Hematocrit 27.4% (36.0-47.0) Mean Corpuscular Volume 92fL (79-100) Mean Corpuscular Hemoglobin 29pg (25-35) Mean Corpuscular Hemoglobin Concent 32g/dL (31-37) Red Cell Distribution Width 15.3% (11.5-14.5) Platelet Count 79x10^3/uL (140-400) Neutrophils (%) (Auto) 95% (31-73) Lymphocytes (%) (Auto) 4% (24-48) Monocytes (%) (Auto) 2% (0-9) Eosinophils (%) (Auto) 0% (0-3) Basophils (%) (Auto) 0% (0-3) Neutrophils # (Auto) 5.4x10^3uL (1.8-7.7) Lymphocytes # (Auto) 0.2x10^3/uL (1.0-4.8) Monocytes # (Auto) 0.1x10^3/uL (0.0-1.1) Eosinophils # (Auto) 0.0x10^3/uL (0.0-0.7) Basophils # (Auto) 0.0x10^3/uL (0.0-0.2) Segmented Neutrophils % 82% (35-66) Band Neutrophils % 16% (0-9) Lymphocytes % 1% (24-48) Myelocytes % 1% (0-0) Nucleated Red Blood Cells 1 Platelet Estimate Decreased (ADEQUATE) Anisocytosis Slight Sodium Level 141mmol/L (136-145) Potassium Level 4.0mmol/L (3.5-5.1) Chloride Level 101mmol/L (98-107) Carbon Dioxide Level 24mmol/L (21-32) Anion Gap 16 (6-14) Blood Urea Nitrogen 46mg/dL (7-20) Creatinine 7.6mg/dL (0.6-1.0) Estimated GFR (Cockcroft-Gault) 5.2 Glucose Level 274mg/dL (70-99) Calcium Level 8.3mg/dL (8.5-10.1) Troponin I Quantitative 0.144ng/mL (0.000-0.055) Triglycerides Level 110mg/dL (0-150) Cholesterol Level 155mg/dL (0-200) LDL Cholesterol, Calculated 101mg/dL (0-100) VLDL Cholesterol, Calculated 22mg/dL (0-40) HDL Cholesterol 32mg/dL (40-60) Cholesterol/HDL Ratio 4.8 Test 09/05/16 12:06 09/05/16 16:52 09/05/16 19:54 09/06/16 05:00 Glucose (Fingerstick) 197mg/dL (70-99) 119mg/dL (70-99) 169mg/dL (70-99) White Blood Count 7.4x10^3/uL (4.0-11.0) Red Blood Count 3.02x10^6/uL (3.50-5.40) Hemoglobin 9.0g/dL (12.0-15.5) Hematocrit 27.9% (36.0-47.0) Mean Corpuscular Volume 92fL (79-100) Mean Corpuscular Hemoglobin 30pg (25-35) Mean Corpuscular Hemoglobin Concent 32g/dL (31-37) Red Cell Distribution Width 15.4% (11.5-14.5) Platelet Count 102x10^3/uL (140-400) Neutrophils (%) (Auto) 78% (31-73) Lymphocytes (%) (Auto) 11% (24-48) Monocytes (%) (Auto) 8% (0-9) Eosinophils (%) (Auto) 3% (0-3) Basophils (%) (Auto) 0% (0-3) Neutrophils # (Auto) 5.8x10^3uL (1.8-7.7) Lymphocytes # (Auto) 0.8x10^3/uL (1.0-4.8) Monocytes # (Auto) 0.6x10^3/uL (0.0-1.1) Eosinophils # (Auto) 0.2x10^3/uL (0.0-0.7) Basophils # (Auto) 0.0x10^3/uL (0.0-0.2) Sodium Level 144mmol/L (136-145) Potassium Level 3.2mmol/L (3.5-5.1) Chloride Level 102mmol/L (98-107) Carbon Dioxide Level 25mmol/L (21-32) Anion Gap 17 (6-14) Blood Urea Nitrogen 57mg/dL (7-20) Creatinine 8.9mg/dL (0.6-1.0) Estimated GFR (Cockcroft-Gault) 4.3 BUN/Creatinine Ratio 6 (6-20) Glucose Level 163mg/dL (70-99) Calcium Level 8.2mg/dL (8.5-10.1) Total Bilirubin 0.7mg/dL (0.2-1.0) Aspartate Amino Transf (AST/SGOT) 34U/L (15-37) Alanine Aminotransferase (ALT/SGPT) 29U/L (14-59) Alkaline Phosphatase 97U/L (46-116) Total Protein 6.4g/dL (6.4-8.2) Albumin 2.9g/dL (3.4-5.0) Albumin/Globulin Ratio 0.8 (1.0-1.7) Laboratory Tests Test 09/05/16 12:06 09/05/16 16:52 09/05/16 19:54 09/06/16 05:00 Glucose (Fingerstick) 197mg/dL (70-99) 119mg/dL (70-99) 169mg/dL (70-99) White Blood Count 7.4x10^3/uL (4.0-11.0) Red Blood Count 3.02x10^6/uL (3.50-5.40) Hemoglobin 9.0g/dL (12.0-15.5) Hematocrit 27.9% (36.0-47.0) Mean Corpuscular Volume 92fL (79-100) Mean Corpuscular Hemoglobin 30pg (25-35) Mean Corpuscular Hemoglobin Concent 32g/dL (31-37) Red Cell Distribution Width 15.4% (11.5-14.5) Platelet Count 102x10^3/uL (140-400) Neutrophils (%) (Auto) 78% (31-73) Lymphocytes (%) (Auto) 11% (24-48) Monocytes (%) (Auto) 8% (0-9) Eosinophils (%) (Auto) 3% (0-3) Basophils (%) (Auto) 0% (0-3) Neutrophils # (Auto) 5.8x10^3uL (1.8-7.7) Lymphocytes # (Auto) 0.8x10^3/uL (1.0-4.8) Monocytes # (Auto) 0.6x10^3/uL (0.0-1.1) Eosinophils # (Auto) 0.2x10^3/uL (0.0-0.7) Basophils # (Auto) 0.0x10^3/uL (0.0-0.2) Sodium Level 144mmol/L (136-145) Potassium Level 3.2mmol/L (3.5-5.1) Chloride Level 102mmol/L (98-107) Carbon Dioxide Level 25mmol/L (21-32) Anion Gap 17 (6-14) Blood Urea Nitrogen 57mg/dL (7-20) Creatinine 8.9mg/dL (0.6-1.0) Estimated GFR (Cockcroft-Gault) 4.3 BUN/Creatinine Ratio 6 (6-20) Glucose Level 163mg/dL (70-99) Calcium Level 8.2mg/dL (8.5-10.1) Total Bilirubin 0.7mg/dL (0.2-1.0) Aspartate Amino Transf (AST/SGOT) 34U/L (15-37) Alanine Aminotransferase (ALT/SGPT) 29U/L (14-59) Alkaline Phosphatase 97U/L (46-116) Total Protein 6.4g/dL (6.4-8.2) Albumin 2.9g/dL (3.4-5.0) Albumin/Globulin Ratio 0.8 (1.0-1.7) Microbiology 09/04/16 Blood Culture - Preliminary, Resulted NO GROWTH AFTER 1 DAY 09/06/16 Gram Stain - Final, Complete Medications Current Medications Albuterol/ Ipratropium (Duoneb) 3 ml 1X ONCE NEB Last administered on 12:17; Start 09/04/16 at 12:15; Stop 09/04/16 at 12:16; Status DC Albuterol Sulfate (Ventolin Neb Soln) 5 mg 1X ONCE INH Last administered on 12:17; Start 09/04/16 at 12:15; Stop 09/04/16 at 12:16; Status DC Prednisone (Prednisone) 60 mg 1X ONCE PO Last administered on 09/04/16 12:41 ; Start 09/04/16 at 12:15; Stop 09/04/16 at 12:16; Status DC Vancomycin HCl (Vanco Per Pharmacy) 1 each PRN DAILY PRN MC SEE COMMENTS Last administered on 09/04/16 16:58; Start 09/04/16 at 13:00 Piperacillin Sod/ Tazobactam Sod 1 each 1 each PRN DAILY PRN MC SEE COMMENTS; Start 09/04/16 at 13:00 Piperacillin Sod/ Tazobactam Sod 2.25 gm/Sodium Chloride 50 ml @ 100 mls/hr ONCE ONCE IV Last administered on 09/04/16 13:32; Start 09/04/16 at 13:00; Stop 09/04/16 at 13:29; Status DC Vancomycin HCl/ Sodium Chloride (Iv Sodium Chloride 0.9% 250ml) 250 ml @ 166.667 mls/hr 1X ONCE IV Last administered on 09/04/16 14:26; Start at 13:00; Stop 09/04/16 at 14:29; Status DC Aspirin (Children'S Aspirin) 324 mg 1X ONCE PO Last administered on 09/04/16 14:30; Start 09/04/16 at 13:45; Stop 09/04/16 at 13:46; Status DC Ondansetron HCl (Zofran) 4 mg PRN Q8HRS PRN IV NAUSEA/VOMITING; Start 09/04/16 at 14:15; Stop 09/05/16 at 14:14; Status DC Morphine Sulfate 2 mg PRN Q2HR PRN IV PAIN; Start 09/04/16 at 14:15; Stop 09/05 at 14:14; Status DC Acetaminophen 650 mg 650 mg PRN Q4HRS PRN PO FEVER; Start 09/04/16 at 14:15; Stop 09/05/16 at 14:14; Status DC Piperacillin Sod/ Tazobactam Sod 2.25 gm/Sodium Chloride 50 ml @ 100 mls/hr Q8HRS IV Last administered on 09/06/16 06:11; Start 09/04/16 at 22:00 Vancomycin HCl/ Sodium Chloride (Iv Sodium Chloride 0.9% 250ml) 250 ml @ 166.667 mls/hr 3X/WEEK IV ; Start 09/07/16 at 09:00; Status UNV Acetaminophen (Tylenol) 650 mg PRN Q6HRS PRN PO MILD PAIN / TEMP; Start at 16:00 Amlodipine Besylate (Norvasc) 10 mg DAILY PO Last administered on 09/06/16 08: 32; Start 09/05/16 at 09:00 Aspirin (Kimber Aspirin) 325 mg DAILYWBKFT PO Last administered on 09/06/16 08: 23; Start 09/05/16 at 08:00 Clonidine HCl (Catapres) 0.1 mg PRN Q6HRS PRN PO HYPERTENSION, SEE COMMENTS; Start 09/04/16 at 16:00 Darbepoetin Azeem (Aranesp) 25 mcg WEEKLYHS SQ Last administered on 09/04/16 21 :10; Start 09/04/16 at 21:00 Folic Acid (Folic Acid) 1 mg DAILY PO Last administered on 09/06/16 08:24; Start 09/05/16 at 09:00 Hydralazine HCl (Apresoline) 25 mg PRN TID PRN PO HYPERTENSION, SEE COMMENTS; Start 09/04/16 at 16:00 Pantoprazole Sodium (Protonix) 40 mg BIDAC PO Last administered on 09/06/16 08 :31; Start 09/04/16 at 16:30 Pyridoxine HCl (Vitamin B-6) 50 mg DAILY PO Last administered on 09/06/16 08: 24; Start 09/05/16 at 09:00 Simethicone (Gas-X) 80 mg PRN AFTMEALHC PRN PO GAS / BLOATING Last administered on 09/06/16 02:15; Start 09/04/16 at 16:00 Non-Formulary Medication 2.5 mg PRN Q4HRS PRN NEB SHORTNESS OF BREATH; Start at 16:00; Stop 09/04/16 at 16:34; Status DC Polyethylene Glycol (miraLAX PACKET) 17 gm DAILY PO Last administered on 08:32; Start 09/05/16 at 09:00 Senna/Docusate Sodium (Senna Plus) 1 tab QHS PO Last administered on 09/05/16 21:00; Start 09/04/16 at 21:00 Albuterol/ Ipratropium (Duoneb) 3 ml QID NEB Last administered on 09/06/16 08: 02; Start 09/04/16 at 17:00 Insulin Aspart (Novolog) 0-7 UNITS TIDWMEALS SQ Last administered on 09/05/16 13:08; Start 09/04/16 at 17:00 Dextrose (Dextrose 50%-Water Syringe) 12.5 gm PRN Q15MIN PRN IV SEE COMMENTS; Start 09/04/16 at 16:00 Heparin Sodium (Porcine) 5,000 unit Q8HRS SQ Last administered on 09/06/16 06: 20; Start 09/04/16 at 22:00 Albuterol Sulfate (Ventolin Neb Soln) 2.5 mg PRN Q4HRS PRN NEB SHORTNESS OF BREATH; Start 09/04/16 at 16:45 Vancomycin HCl 1 each 1X ONCE MC ; Start 09/06/16 at 14:00; Stop 09/06/16 at 14 :01 Lisinopril (Prinivil) 5 mg DAILY PO Last administered on 09/06/16 08:31; Start 09/05/16 at 09:00 Budesonide 0.5 mg 0.5 mg RTBID NEB Last administered on 09/06/16 08:00; Start 09/05/16 at 20:00 Sodium Chloride (Iv Sodium Chloride 0.9% 1000ml Bag) 1,000 ml @ 1,000 mls/hr Q1H PRN IV hypotension; Start 09/06/16 at 11:01; Stop 09/06/16 at 17:00 Info (PHARMACY MONITORING -- do not chart) 1 each PRN DAILY PRN MC SEE COMMENTS ; Start 09/06/16 at 11:15 Info (PHARMACY MONITORING -- do not chart) 1 each PRN DAILY PRN MC SEE COMMENTS ; Start 09/06/16 at 11:15; Status UNV Active Scripts Active Aspirin 325 Mg Tablet 325 Mg PO [id number] Amox Tr-K Clv 500-125 Mg Tab (Amoxicillin/Potassium Clav) 1 Each Tablet 1 Tab PO Q24H Hydralazine Hcl 25 Mg Tablet 1 Tab PO TID PRN [Sennosides/Docusate Sodium] 1 TAB Tablet 1 Tab PO HS Gas-X (Simethicone) 80 Mg Tab.chew 80 Mg PO PRN AFTMEALHC PRN 30 Days [Polyethylene Glycol 3350] 17 GM Packet 17 Gm PO DAILY Vitamin B-6 (Pyridoxine Hcl) 50 Mg Tablet 50 Mg PO DAILY 30 Days Protonix (Pantoprazole Sodium) 40 Mg Tablet 40 Mg PO BIDAC Novolog Flexpen (Insulin Aspart) 300 Units/3 Ml Insuln.pen 0 Units SQ TIDWMEALS 30 Days Folic Acid 1 Mg Tablet 1 Mg PO DAILY Aranesp Syringe (Darbepoetin Azeem In Polysorbat) 25 Mcg/0.42 Ml Disp.syrin 25 Mcg SQ WEEKLYHS Catapres (Clonidine Hcl) 0.1 Mg Tablet 0.1 Mg PO PRN Q6HRS PRN [Albuterol Sulfate] 2.5 MG/3 ML Nebu 2.5 Mg NEB PRN Q4HRS PRN Norvasc (Amlodipine Besylate) 10 Mg Tablet 10 Mg PO DAILY Tylenol (Acetaminophen) 325 Mg Tablet 650 Mg PO PRN Q6HRS PRN 30 Days Vitals/I & O Vital Sign - Last 24 Hours 09/05/16 09/05/16 09/05/16 09/05/16 11:38 15:00 15:17 19:00 Temp 98.6 97.3 98.6 97.3 Pulse 79 79 Resp 19 18 B/P 127/59 133/61 Pulse Ox 92 91 92 91 O2 Delivery Nasal Cannula Nasal Cannula Nasal Cannula Nasal Cannula O2 Flow Rate 2.0 1.0 2.0 1.0 09/05/16 09/05/16 09/05/16 09/06/16 19:33 19:45 23:00 03:00 Temp 97.3 98.6 97.3 98.6 Pulse 84 106 Resp 20 18 B/P 159/73 147/78 Pulse Ox 91 100 95 O2 Delivery Nasal Cannula Nasal Cannula Nasal Cannula Nasal Cannula O2 Flow Rate 2.0 1.0 1.0 1.0 09/06/16 09/06/16 09/06/16 09/06/16 07:00 08:00 08:07 08:08 Temp 97.7 97.7 Pulse 81 Resp 24 B/P 174/77 Pulse Ox 97 94 94 O2 Delivery Nasal Cannula Nasal Cannula Nasal Cannula Nasal Cannula O2 Flow Rate 2.0 1.0 2.0 2.0 09/06/16 09/06/16 08:31 08:32 Pulse 81 81 B/P 174/77 174/77 Intake and Output 09/05/16 09/05/16 09/06/16 15:00 23:00 07:00 Intake Total 250 ml 100 ml Output Total 2 ml Balance 248 ml 100 ml EMELYN MILLER MD Sep 06, 2016 11:31
[2016-09-06] MEDS: VANCOMYCIN PER PHARMACY MC PRN (12:14)
[2016-09-06] MEDS ORDERED: VANCOMYCIN RANDOM LEVEL. MC ONE (14:00)
[2016-09-06] MEDS ORDERED: VANCOMYCIN PER PHARMACY MC PRN (14:45)
[2016-09-06 15:00] VITALS: BP 113/55
[2016-09-06] MEDS ORDERED: VANCOMYCIN 500 MG in IV NORMAL SALINE 100ML 100 ML IV ONE (16:00)
[2016-09-06 19:55] VITALS: BP 146/67
[2016-09-06] MEDS: SENNOSIDES/DOCUSATE 8.6/50MG TABLET. PO SCH (21:57)
[2016-09-06 23:30] VITALS: BP 150/71
[2016-09-07] MEDS ORDERED: ALPRAZolam 0.25 MG TABLET PO ONE (01:15)
[2016-09-07 03:10] VITALS: BP 148/69
[2016-09-07] MEDS: PIPERACILLIN/TAZOBACTAM 2.25 GM in IV NORMAL SALINE 50ML 50 ML IV SCH ×3 (06:03→22:11)
[2016-09-07] MEDS: HEPARIN PF for SUB-Q USE 5,000 UNIT/0.5 ML VIAL. SQ SCH ×3 (06:07→22:00)
--- NOTE | 2016-09-07 07:21 | PDOC ---
Infectious Disease Note ROS ROS Vital Sign Vital Signs Vital Signs Date Time Temp Pulse Resp B/P Pulse Ox O2 Delivery O2 Flow Rate FiO2 09/07/16 03:10 89 18 148/69 96 Room Air 09/06/16 23:30 97.2 97.2 09/06/16 20:00 1.0 Labs Lab Laboratory Tests Test 09/06/16 07:35 09/06/16 17:12 09/06/16 20:50 Glucose (Fingerstick) 136mg/dL (70-99) 200mg/dL (70-99) 158mg/dL (70-99) Objective Assessment GPC sepsis / bottles 09/04 POA CKD on HD DM h/o Hep B CHF Plan Plan of Care Cont abx F/u cults Check Hep B viral load F/u labs Thank you # [id number] EWA SCALES MD Sep 07, 2016 07:21
[2016-09-07] MEDS: PANTOPRAZOLE 40 MG TABLET.DR. PO SCH ×2 (07:30→16:30)
[2016-09-07] MEDS ORDERED: IV NORMAL SALINE 1000ML BAG 1,000 ML IV PRN ×2 (07:47)
[2016-09-07] MEDS: ASPIRIN 325 MG TABLET PO SCH (08:00)
[2016-09-07] MEDS: INSULIN ASPART 300 UNITS/3 ML INSULN.PEN SQ SCH ×3 (08:00→16:30)
[2016-09-07] MEDS ORDERED: DIALYSIS PATIENT. MC PRN ×2 (08:00)
[2016-09-07] MEDS: BUDESONIDE 0.5 MG/2 ML NEBU. NEB SCH ×2 (08:29→19:47)
[2016-09-07] MEDS: IPRATRPIUM/ALBUTEROL 0.5/2.5MG 3 ML NEBU. NEB SCH ×4 (08:29→19:47)
[2016-09-07] MEDS: FOLIC ACID 1 MG TABLET. PO SCH (09:00)
[2016-09-07] MEDS: LISINOPRIL 5 MG TABLET. PO SCH (09:00)
[2016-09-07] MEDS: POLYETHYLENE GLYCOL 3350 17 GM PACKET. PO SCH (09:00)
[2016-09-07] MEDS: PYRIDOXINE 50 MG TABLET. PO SCH (09:00)
[2016-09-07] MEDS ORDERED: VANCOMYCIN 1.25 GM in IV NORMAL SALINE 250ML 250 ML IV SCH (09:00)
[2016-09-07] MEDS: amLODIPine BESYLATE 10 MG TABLET PO SCH (09:00)
--- NOTE | 2016-09-07 09:30 | PDOC ---
Dialysis Progress Note Dialysis Note Dialysis Note Seen on Hemodialysis, tolerating treatment Okay Vitals on Hemodialysis; 170/80 83 Afeb General Appearance: Awake: Alert Oriented x 1 Neck: No JVD or JVP Chest: CTA Reddy Heart: S1 S2 Abdomen - Soft NTND Extremities - No Edema ESRD: Dialysis as below F 180 NR 3.0 Hrs 4 K 2.5 Ca 140 Na 35 HC03 Qb 350 + Qd 500+ Heparin 0 Units Uf 3-4 Kgs or to dry weight as tolerated May give 25-50 gms of 25% Albumin if needed to maintain Hemodynamic stability Treatment plan reviewed and discussed with batter mixer Vitals Vital Signs Vital Signs Date Time Temp Pulse Resp B/P Pulse Ox O2 Delivery O2 Flow Rate FiO2 09/07/16 08:34 95 Nasal Cannula 2.0 09/07/16 03:10 89 18 148/69 09/06/16 23:30 97.2 97.2 Labs Last Labs Laboratory Tests Test 09/05/16 12:06 09/05/16 16:52 09/05/16 19:54 09/06/16 05:00 Glucose (Fingerstick) 197mg/dL (70-99) 119mg/dL (70-99) 169mg/dL (70-99) White Blood Count 7.4x10^3/uL (4.0-11.0) Red Blood Count 3.02x10^6/uL (3.50-5.40) Hemoglobin 9.0g/dL (12.0-15.5) Hematocrit 27.9% (36.0-47.0) Mean Corpuscular Volume 92fL (79-100) Mean Corpuscular Hemoglobin 30pg (25-35) Mean Corpuscular Hemoglobin Concent 32g/dL (31-37) Red Cell Distribution Width 15.4% (11.5-14.5) Platelet Count 102x10^3/uL (140-400) Neutrophils (%) (Auto) 78% (31-73) Lymphocytes (%) (Auto) 11% (24-48) Monocytes (%) (Auto) 8% (0-9) Eosinophils (%) (Auto) 3% (0-3) Basophils (%) (Auto) 0% (0-3) Neutrophils # (Auto) 5.8x10^3uL (1.8-7.7) Lymphocytes # (Auto) 0.8x10^3/uL (1.0-4.8) Monocytes # (Auto) 0.6x10^3/uL (0.0-1.1) Eosinophils # (Auto) 0.2x10^3/uL (0.0-0.7) Basophils # (Auto) 0.0x10^3/uL (0.0-0.2) Sodium Level 144mmol/L (136-145) Potassium Level 3.2mmol/L (3.5-5.1) Chloride Level 102mmol/L (98-107) Carbon Dioxide Level 25mmol/L (21-32) Anion Gap 17 (6-14) Blood Urea Nitrogen 57mg/dL (7-20) Creatinine 8.9mg/dL (0.6-1.0) Estimated GFR (Cockcroft-Gault) 4.3 BUN/Creatinine Ratio 6 (6-20) Glucose Level 163mg/dL (70-99) Calcium Level 8.2mg/dL (8.5-10.1) Total Bilirubin 0.7mg/dL (0.2-1.0) Aspartate Amino Transf (AST/SGOT) 34U/L (15-37) Alanine Aminotransferase (ALT/SGPT) 29U/L (14-59) Alkaline Phosphatase 97U/L (46-116) Total Protein 6.4g/dL (6.4-8.2) Albumin 2.9g/dL (3.4-5.0) Albumin/Globulin Ratio 0.8 (1.0-1.7) Random Vancomycin Level 16.3mcg/mL Test 09/06/16 07:35 09/06/16 17:12 09/06/16 20:50 Glucose (Fingerstick) 136mg/dL (70-99) 200mg/dL (70-99) 158mg/dL (70-99) Laboratory Tests Test 09/06/16 17:12 09/06/16 20:50 Glucose (Fingerstick) 200mg/dL (70-99) 158mg/dL (70-99) Assessment Assessment Problems Medical Problems: (1) Pneumonia Status: Acute (2) Pulmonary edema Status: Acute (3) SOB (shortness of breath) Status: Acute Problems: Plan Plan of Care Problems Medical Problems: (1) Pneumonia Status: Acute (2) Pulmonary edema Status: Acute (3) SOB (shortness of breath) Status: Acute CHERI MURILLO MD Sep 07, 2016 09:29
[2016-09-07] MEDS: VANCOMYCIN PER PHARMACY MC PRN (09:34)
[2016-09-07 09:48] LABS: BASO % 0 % (0-3); EOS % 5 % (0-3); HEMATOCRIT 27.9 % (36.0-47.0); HEMOGLOBIN 9.3 g/dL (12.0-15.5); LYMPH # 1.6 x10^3/uL (1.0-4.8); LYMPH % 22 % (24-48); MEAN CORPUSCULAR HEMOGLOBIN 30 pg (25-35); MEAN CORPUSCULAR HGB CONC 33 g/dL (31-37); MEAN CORPUSCULAR VOLUME 89 fL (79-100); MONO % 10 % (0-9); NEUT % 62 % (31-73); PLATELET COUNT 125 x10^3/uL (140-400); RED BLOOD COUNT 3.12 x10^6/uL (3.50-5.40); RED CELL DISTRIBUTION WIDTH 15.6 % (11.5-14.5)
--- NOTE | 2016-09-07 10:04 | PDOC ---
IVETH KU INJECTION MOLDING PROCESS TECHNICIAN 09/07/16 1004: CARDIO Progress Notes Date and Time Date of Service 09/07/16 Time of Evaluation 1115 Subjective Comments: see on HD; resting in bed. Does not provide any complaints Vitals Vitals Vital Signs Date Time Temp Pulse Resp B/P Pulse Ox O2 Delivery O2 Flow Rate FiO2 09/07/16 08:34 95 Nasal Cannula 2.0 09/07/16 03:10 89 18 148/69 09/06/16 23:30 97.2 97.2 Weight Weight [ ] Input and Output Intake and Output Intake and Output 09/07/16 07:00 Intake Total 490 ml Output Total 0 ml Balance 490 ml Intake Oral 440 ml IV Total 50 ml Output Urine Total 0 ml Stool Total 0 ml # Voids 1 # Bowel Movements 1 Laboratory Labs Laboratory Tests Test 09/06/16 17:12 09/06/16 20:50 09/07/16 09:00 Glucose (Fingerstick) 200mg/dL (70-99) 158mg/dL (70-99) White Blood Count 7.0x10^3/uL (4.0-11.0) Red Blood Count 3.12x10^6/uL (3.50-5.40) Hemoglobin 9.3g/dL (12.0-15.5) Hematocrit 27.9% (36.0-47.0) Mean Corpuscular Volume 89fL (79-100) Mean Corpuscular Hemoglobin 30pg (25-35) Mean Corpuscular Hemoglobin Concent 33g/dL (31-37) Red Cell Distribution Width 15.6% (11.5-14.5) Platelet Count 125x10^3/uL (140-400) Neutrophils (%) (Auto) 62% (31-73) Lymphocytes (%) (Auto) 22% (24-48) Monocytes (%) (Auto) 10% (0-9) Eosinophils (%) (Auto) 5% (0-3) Basophils (%) (Auto) 0% (0-3) Neutrophils # (Auto) 4.4x10^3uL (1.8-7.7) Lymphocytes # (Auto) 1.6x10^3/uL (1.0-4.8) Monocytes # (Auto) 0.7x10^3/uL (0.0-1.1) Eosinophils # (Auto) 0.3x10^3/uL (0.0-0.7) Basophils # (Auto) 0.0x10^3/uL (0.0-0.2) Microbiology Micro Microbiology 09/04/16 Blood Culture - Final, Complete 09/04/16 Blood Culture Result 1 (ANABELL) - Final, Complete 09/06/16 Gram Stain - Final, Complete Physical Exam HEENT: Neck Supple W Full Motion Chest: Symmetric LUNGS: Other (diminished throughout ) Heart: S1S2, RRR, murmurs (2/6 systolic murmur ) Abdomen: Soft N/T Extremities: No Edema, No Calf Tenderness Neurology: alert, confused Assessment Assessment 1. Acute on chronic combined systolic and diastolic HF, LVEF 45% improved continue fluid offloading in HD per nephrology 2. Mildly elevated troponin 0.144 in the setting of CRF and acute infection doubt ACS cardiac cath 03/08 with moderate 3-vessel disease; no significant obstructive CAD continue medical management. Consider addition of BB when pulmonary status stable/wheezing resolved 3. Acute on chronic respiratory failure multifactorial with infiltrates/poss PNA and HF improved per pulm 4. ESRD with HD per nephrology 5. DM, II insulin requiring per PCP 6. Hypertension controlled SHEILA NAIR MD 09/07/16 2016: CARDIO Progress Notes Assessment Assessment Patient seen and examined. Agree with STRATEGIC CLIENT EXECUTIVE's assessment and plan. Acute on chronic diastolic heart failure better compensated with fluid removal with HD. Doubt ACS. Slight trop elevation from demand ischemia and ESRD. Agree with BB once resp status improves. Follow up with our office in 2-4 weeks. IVETH KU APRN Sep 07, 2016 10:04 SHEILA NAIR MD Sep 07, 2016 18:56
--- NOTE | 2016-09-07 10:17 | PDOC ---
PROGRESS NOTES Subjective Subjective seen in Dialysis unit, sleepy,was agitated last night given ativan Objective Objective Vital Signs Date Time Temp Pulse Resp B/P Pulse Ox O2 Delivery O2 Flow Rate FiO2 09/07/16 08:34 95 Nasal Cannula 2.0 09/07/16 03:10 89 18 148/69 09/06/16 23:30 97.2 97.2 Intake and Output 09/07/16 06:59 Intake Total 490 ml Output Total 0 ml Balance 490 ml Intake Oral 440 ml IV Total 50 ml Output Urine Total 0 ml Stool Total 0 ml # Voids 1 # Bowel Movements 1 Physical Exam Abdomen: Soft, No tenderness Heart: Regular rate Extremities: No edema General: No acute distress HEENT: Atraumatic, PERRLA Lungs: Other Neck: Supple Psych/Mental Status: Other (sleepy) Diagnosis Problem List Problems Medical Problems: (1) Pneumonia Status: Acute (2) Pulmonary edema Status: Acute (3) SOB (shortness of breath) Status: Acute RENAL FAILURE: ESRD Assessment Assessment Bacteremia, gram positive blood c/s, 2 out of 4 . agitation and confusion 1. Pneumonia suspect gram neg and gram positive. 2. Heart failure, diastolic, chronic. 3. End-stage renal disease, on dialysis Wednesday, Wednesday and Wednesday. 4. Diabetes, insulin-dependent. 5. Hypertension. 6. 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 Plan: spoke with renal and ID. On Zosyn.Received one dose of IV Vancomycin. Patient is much worse- did not respond to breathing RX. she is gettingt HD this AM. Continue HD. Improving. Problems: Plan Plan of Care Problems Medical Problems: (1) Pneumonia Status: Acute (2) Pulmonary edema Status: Acute (3) SOB (shortness of breath) Status: Acute Comment Review of Relevant I have reviewed the following items reji (where applicable) has been applied. Labs Laboratory Tests Test 09/06/16 17:12 09/06/16 20:50 09/07/16 09:00 Glucose (Fingerstick) 200mg/dL (70-99) 158mg/dL (70-99) White Blood Count 7.0x10^3/uL (4.0-11.0) Red Blood Count 3.12x10^6/uL (3.50-5.40) Hemoglobin 9.3g/dL (12.0-15.5) Hematocrit 27.9% (36.0-47.0) Mean Corpuscular Volume 89fL (79-100) Mean Corpuscular Hemoglobin 30pg (25-35) Mean Corpuscular Hemoglobin Concent 33g/dL (31-37) Red Cell Distribution Width 15.6% (11.5-14.5) Platelet Count 125x10^3/uL (140-400) Neutrophils (%) (Auto) 62% (31-73) Lymphocytes (%) (Auto) 22% (24-48) Monocytes (%) (Auto) 10% (0-9) Eosinophils (%) (Auto) 5% (0-3) Basophils (%) (Auto) 0% (0-3) Neutrophils # (Auto) 4.4x10^3uL (1.8-7.7) Lymphocytes # (Auto) 1.6x10^3/uL (1.0-4.8) Monocytes # (Auto) 0.7x10^3/uL (0.0-1.1) Eosinophils # (Auto) 0.3x10^3/uL (0.0-0.7) Basophils # (Auto) 0.0x10^3/uL (0.0-0.2) Microbiology 09/04/16 Blood Culture - Final, Complete 09/04/16 Blood Culture Result 1 (ANABELL) - Final, Complete 09/06/16 Gram Stain - Final, Complete Medications Current Medications Alprazolam 0.25 mg 0.25 mg 1X ONCE PO Last administered on 09/07/16t 01:01; Start 09/07/16 at 01:15; Stop 09/07/16 at 01:16; Status DC Info (PHARMACY MONITORING -- do not chart) 1 each PRN DAILY PRN MC SEE COMMENTS ; Start 09/06/16 at 11:15 Info (PHARMACY MONITORING -- do not chart) 1 each PRN DAILY PRN MC SEE COMMENTS ; Start 09/07/16 at 08:00; Status UNV Info (PHARMACY MONITORING -- do not chart) 1 each PRN DAILY PRN MC SEE COMMENTS ; Start 09/07/16 at 08:00; Status UNV Info 1 each 1 each PRN DAILY PRN MC SEE COMMENTS; Start 09/06/16 at 11:15; Status UNV Sodium Chloride 1,000 ml @ 1,000 mls/hr Q1H PRN IV hypotension; Start 09/07/16 at 07:47; Stop 09/07/16 at 13:46 Sodium Chloride (Iv Sodium Chloride 0.9% 1000ml Bag) 1,000 ml @ 400 mls/hr Q2H30M PRN IV PATENCY; Start 09/07/16 at 07:47; Stop 09/07/16 at 19:46 Sodium Chloride (Iv Sodium Chloride 0.9% 1000ml Bag) 1,000 ml @ 1,000 mls/hr Q1H PRN IV hypotension; Start 09/06/16 at 11:01; Stop 09/06/16 at 17:00; Status DC Vancomycin HCl (Vanco Per Pharmacy) 1 each PRN DAILY PRN MC SEE COMMENTS; Start 09/06/16 at 14:45; Status UNV Vancomycin HCl 500 mg/Sodium Chloride 100 ml @ 100 mls/hr 1X ONCE IV Last administered on 09/06/16t 17:31; Start 09/06/16 at 16:00; Stop 09/06/16 at 16:59 ; Status DC Vancomycin HCl 1 each 1 each 1X ONCE MC ; Start 09/06/16 at 14:00; Stop at 14:00; Status DC Vancomycin HCl/ Sodium Chloride (Iv Sodium Chloride 0.9% 100ml) 100 ml @ 100 mls/hr QMWF IV ; Start 09/07/16 at 16:00 Vancomycin HCl/ Sodium Chloride (Iv Sodium Chloride 0.9% 250ml) 250 ml @ 166.667 mls/hr 3X/WEEK IV ; Start 09/07/16 at 09:00; Status UNV Vitals/I & O Vital Sign - Last 24 Hours 09/06/16 09/06/16 09/06/16 09/06/16 13:13 15:00 16:06 19:02 Temp 98.1 98.1 Pulse 90 Resp 20 B/P 113/55 Pulse Ox 93 91 91 O2 Delivery Nasal Cannula Room Air Room Air Room Air O2 Flow Rate 2.0 09/06/16 09/06/16 09/06/16 09/06/16 19:05 19:55 20:00 23:30 Temp 97.1 97.2 97.1 97.2 Pulse 96 93 Resp 18 18 B/P 146/67 150/71 Pulse Ox 91 96 94 O2 Delivery Room Air Room Air Nasal Cannula Room Air O2 Flow Rate 1.0 09/07/16 09/07/16 03:10 08:34 Pulse 89 Resp 18 B/P 148/69 Pulse Ox 96 95 O2 Delivery Room Air Nasal Cannula O2 Flow Rate 2.0 Intake and Output 09/06/16 09/06/16 09/07/16 14:59 22:59 06:59 Intake Total 290 ml 200 ml Output Total 0 ml Balance 290 ml 200 ml FRANCISCO LAMBERT MD Sep 07, 2016 10:17
[2016-09-07 10:18] LABS: ALBUMIN 2.7 g/dL (3.4-5.0); ALBUMIN/GLOBULIN RATIO 0.8 (1.0-1.7); CALCIUM 8.3 mg/dL (8.5-10.1); CREATININE 5.1 mg/dL (0.6-1.0); GFR 8.2; POTASSIUM 3.6 mmol/L (3.5-5.1); TOTAL PROTEIN 6.3 g/dL (6.4-8.2)
--- NOTE | 2016-09-07 14:17 | RAD ---
Indication difficulty breathing. Pneumonia. A single view of the chest was obtained and is compared to a study 3 days earlier. The level of inspiratory effort is slightly better than on the previous exam. Aeration of the lungs has improved slightly. Right pleural effusion with associated volume loss persists. Vascular stent is noted in the left upper arm. There is likely mild pulmonary vascular congestion. IMPRESSION: Improved inspiratory effort. Right pleural effusion with associated volume loss persists. Mild pulmonary vascular congestion
[2016-09-07 15:11] VITALS: BP 131/69
[2016-09-07] MEDS ORDERED: VANCOMYCIN 500 MG in IV NORMAL SALINE 100ML 100 ML IV SCH (16:00)
--- NOTE | 2016-09-07 16:51 | PDOC ---
PULMONARY PROGRESS NOTES Subjective no sign of distress Vitals Vital Signs Date Time Temp Pulse Resp B/P Pulse Ox O2 Delivery O2 Flow Rate FiO2 09/07/16 16:26 Nasal Cannula 2.0 09/07/16 15:11 96.3 85 16 131/69 97 96.3 General: Alert, No acute distress HEENT: Other (nc at perrl ) Lungs: Crackles Cardiovascular: S1, S2 Abdomen: Soft, Non-tender Neuro Exam: Alert Extremities: No Edema Skin: Warm Labs Laboratory Tests Test 09/05/16 16:52 09/05/16 19:54 09/06/16 05:00 09/06/16 07:35 Glucose (Fingerstick) 119mg/dL (70-99) 169mg/dL (70-99) 136mg/dL (70-99) White Blood Count 7.4x10^3/uL (4.0-11.0) Red Blood Count 3.02x10^6/uL (3.50-5.40) Hemoglobin 9.0g/dL (12.0-15.5) Hematocrit 27.9% (36.0-47.0) Mean Corpuscular Volume 92fL (79-100) Mean Corpuscular Hemoglobin 30pg (25-35) Mean Corpuscular Hemoglobin Concent 32g/dL (31-37) Red Cell Distribution Width 15.4% (11.5-14.5) Platelet Count 102x10^3/uL (140-400) Neutrophils (%) (Auto) 78% (31-73) Lymphocytes (%) (Auto) 11% (24-48) Monocytes (%) (Auto) 8% (0-9) Eosinophils (%) (Auto) 3% (0-3) Basophils (%) (Auto) 0% (0-3) Neutrophils # (Auto) 5.8x10^3uL (1.8-7.7) Lymphocytes # (Auto) 0.8x10^3/uL (1.0-4.8) Monocytes # (Auto) 0.6x10^3/uL (0.0-1.1) Eosinophils # (Auto) 0.2x10^3/uL (0.0-0.7) Basophils # (Auto) 0.0x10^3/uL (0.0-0.2) Sodium Level 144mmol/L (136-145) Potassium Level 3.2mmol/L (3.5-5.1) Chloride Level 102mmol/L (98-107) Carbon Dioxide Level 25mmol/L (21-32) Anion Gap 17 (6-14) Blood Urea Nitrogen 57mg/dL (7-20) Creatinine 8.9mg/dL (0.6-1.0) Estimated GFR (Cockcroft-Gault) 4.3 BUN/Creatinine Ratio 6 (6-20) Glucose Level 163mg/dL (70-99) Calcium Level 8.2mg/dL (8.5-10.1) Total Bilirubin 0.7mg/dL (0.2-1.0) Aspartate Amino Transf (AST/SGOT) 34U/L (15-37) Alanine Aminotransferase (ALT/SGPT) 29U/L (14-59) Alkaline Phosphatase 97U/L (46-116) Total Protein 6.4g/dL (6.4-8.2) Albumin 2.9g/dL (3.4-5.0) Albumin/Globulin Ratio 0.8 (1.0-1.7) Random Vancomycin Level 16.3mcg/mL Test 09/06/16 17:12 09/06/16 20:50 09/07/16 09:00 09/07/16 15:18 Glucose (Fingerstick) 200mg/dL (70-99) 158mg/dL (70-99) 90mg/dL (70-99) White Blood Count 7.0x10^3/uL (4.0-11.0) Red Blood Count 3.12x10^6/uL (3.50-5.40) Hemoglobin 9.3g/dL (12.0-15.5) Hematocrit 27.9% (36.0-47.0) Mean Corpuscular Volume 89fL (79-100) Mean Corpuscular Hemoglobin 30pg (25-35) Mean Corpuscular Hemoglobin Concent 33g/dL (31-37) Red Cell Distribution Width 15.6% (11.5-14.5) Platelet Count 125x10^3/uL (140-400) Neutrophils (%) (Auto) 62% (31-73) Lymphocytes (%) (Auto) 22% (24-48) Monocytes (%) (Auto) 10% (0-9) Eosinophils (%) (Auto) 5% (0-3) Basophils (%) (Auto) 0% (0-3) Neutrophils # (Auto) 4.4x10^3uL (1.8-7.7) Lymphocytes # (Auto) 1.6x10^3/uL (1.0-4.8) Monocytes # (Auto) 0.7x10^3/uL (0.0-1.1) Eosinophils # (Auto) 0.3x10^3/uL (0.0-0.7) Basophils # (Auto) 0.0x10^3/uL (0.0-0.2) Sodium Level 141mmol/L (136-145) Potassium Level 3.6mmol/L (3.5-5.1) Chloride Level 101mmol/L (98-107) Carbon Dioxide Level 28mmol/L (21-32) Anion Gap 12 (6-14) Blood Urea Nitrogen 24mg/dL (7-20) Creatinine 5.1mg/dL (0.6-1.0) Estimated GFR (Cockcroft-Gault) 8.2 BUN/Creatinine Ratio 5 (6-20) Glucose Level 95mg/dL (70-99) Calcium Level 8.3mg/dL (8.5-10.1) Total Bilirubin 1.0mg/dL (0.2-1.0) Aspartate Amino Transf (AST/SGOT) 30U/L (15-37) Alanine Aminotransferase (ALT/SGPT) 27U/L (14-59) Alkaline Phosphatase 83U/L (46-116) Total Protein 6.3g/dL (6.4-8.2) Albumin 2.7g/dL (3.4-5.0) Albumin/Globulin Ratio 0.8 (1.0-1.7) Test 09/07/16 16:25 Glucose (Fingerstick) 94mg/dL (70-99) Laboratory Tests Test 09/06/16 17:12 09/06/16 20:50 09/07/16 09:00 09/07/16 15:18 Glucose (Fingerstick) 200mg/dL (70-99) 158mg/dL (70-99) 90mg/dL (70-99) White Blood Count 7.0x10^3/uL (4.0-11.0) Red Blood Count 3.12x10^6/uL (3.50-5.40) Hemoglobin 9.3g/dL (12.0-15.5) Hematocrit 27.9% (36.0-47.0) Mean Corpuscular Volume 89fL (79-100) Mean Corpuscular Hemoglobin 30pg (25-35) Mean Corpuscular Hemoglobin Concent 33g/dL (31-37) Red Cell Distribution Width 15.6% (11.5-14.5) Platelet Count 125x10^3/uL (140-400) Neutrophils (%) (Auto) 62% (31-73) Lymphocytes (%) (Auto) 22% (24-48) Monocytes (%) (Auto) 10% (0-9) Eosinophils (%) (Auto) 5% (0-3) Basophils (%) (Auto) 0% (0-3) Neutrophils # (Auto) 4.4x10^3uL (1.8-7.7) Lymphocytes # (Auto) 1.6x10^3/uL (1.0-4.8) Monocytes # (Auto) 0.7x10^3/uL (0.0-1.1) Eosinophils # (Auto) 0.3x10^3/uL (0.0-0.7) Basophils # (Auto) 0.0x10^3/uL (0.0-0.2) Sodium Level 141mmol/L (136-145) Potassium Level 3.6mmol/L (3.5-5.1) Chloride Level 101mmol/L (98-107) Carbon Dioxide Level 28mmol/L (21-32) Anion Gap 12 (6-14) Blood Urea Nitrogen 24mg/dL (7-20) Creatinine 5.1mg/dL (0.6-1.0) Estimated GFR (Cockcroft-Gault) 8.2 BUN/Creatinine Ratio 5 (6-20) Glucose Level 95mg/dL (70-99) Calcium Level 8.3mg/dL (8.5-10.1) Total Bilirubin 1.0mg/dL (0.2-1.0) Aspartate Amino Transf (AST/SGOT) 30U/L (15-37) Alanine Aminotransferase (ALT/SGPT) 27U/L (14-59) Alkaline Phosphatase 83U/L (46-116) Total Protein 6.3g/dL (6.4-8.2) Albumin 2.7g/dL (3.4-5.0) Albumin/Globulin Ratio 0.8 (1.0-1.7) Test 09/07/16 16:25 Glucose (Fingerstick) 94mg/dL (70-99) Medications Active Scripts Medications Dose Route/Sig Days Date Category Aspirin 325 Mg Tablet 325 Mg PO [id number] 03/12/16 Rx Amox Tr-K Clv 500-125 Mg Tab (Amoxicillin/Potassium Clav) 1 Each Tablet 1 Tab PO Q24H 03/12/16 Rx Hydralazine Hcl 25 Mg Tablet 1 Tab PO TID PRN 02/27/16 Rx [Sennosides/Docusate Sodium] 1 TAB Tablet 1 Tab PO HS 01/11/15 Rx Gas-X (Simethicone) 80 Mg Tab.chew 80 Mg PO PRN AFTMEALHC PRN 30 01/11/15 Rx [Polyethylene Glycol 3350] 17 GM Packet 17 Gm PO DAILY 01/11/15 Rx Vitamin B-6 (Pyridoxine Hcl) 50 Mg Tablet 50 Mg PO DAILY 30 01/11/15 Rx Protonix (Pantoprazole Sodium) 40 Mg Tablet 40 Mg PO BIDAC 01/11/15 Rx Novolog Flexpen (Insulin Aspart) 300 Units/3 Ml Insuln.pen 0 Units SQ TIDWMEALS 30 01/11/15 Rx Folic Acid 1 Mg Tablet 1 Mg PO DAILY 01/11/15 Rx Aranesp Syringe (Darbepoetin Azeem In Polysorbat) 25 Mcg/0.42 Ml Disp.syrin 25 Mcg SQ WEEKLYHS 01/11/15 Rx Catapres (Clonidine Hcl) 0.1 Mg Tablet 0.1 Mg PO PRN Q6HRS PRN 01/11/15 Rx [Albuterol Sulfate] 2.5 MG/3 ML Nebu 2.5 Mg NEB PRN Q4HRS PRN 01/11/15 Rx Norvasc (Amlodipine Besylate) 10 Mg Tablet 10 Mg PO DAILY 01/11/15 Rx Tylenol (Acetaminophen) 325 Mg Tablet 650 Mg PO PRN Q6HRS PRN 30 01/11/15 Rx Comments IMPRESSION: Improved inspiratory effort. Right pleural effusion with associated volume loss persists. Mild pulmonary vascular congestion Impression . IMPRESSION: 1. Acute hypoxemic respiratory failure, multifactorial in etiology. 2. Abnormal chest x-ray. 3. Pneumonia. 4. Acute diastolic congestive heart failure. 5. Acute bronchospasm, wheezing. 6. End-stage renal disease, on hemodialysis. 7. History of tuberculosis, treated. 8. Diabetes mellitus. 9. Hypertension. 10, Bacteremia Plan . resp status is compensated antibx per ID [id number] FALGUNI BRUCE MD Sep 07, 2016 16:51
[2016-09-07 19:45] VITALS: BP 150/74
[2016-09-07] MEDS: SENNOSIDES/DOCUSATE 8.6/50MG TABLET. PO SCH (21:00)
[2016-09-07 23:00] VITALS: BP 155/90
[2016-09-08 03:03] VITALS: BP 162/80
[2016-09-08] MEDS: PIPERACILLIN/TAZOBACTAM 2.25 GM in IV NORMAL SALINE 50ML 50 ML IV SCH (05:29)
[2016-09-08] MEDS: HEPARIN PF for SUB-Q USE 5,000 UNIT/0.5 ML VIAL. SQ SCH ×3 (05:37→21:23)
--- NOTE | 2016-09-08 07:05 | PDOC ---
Infectious Disease Note Subjective Subjective Arouses and back to sleep ROS ROS Language barrier Vital Sign Vital Signs Vital Signs Date Time Temp Pulse Resp B/P Pulse Ox O2 Delivery O2 Flow Rate FiO2 09/08/16 03:03 98.4 90 16 162/80 92 Room Air 98.4 09/07/16 20:30 1.0 Physical Exam PHYSICAL EXAM GENERAL: NAD, Comfortable HEENT: Normocephalic NECK: Supple, no JVD, no LN LUNGS: Clear HEART: S1S2, no gallop, no murmur ABD: Soft, NT, no organomegaly, no rebound EXT: No edema, no cyanosis MEDICAL LABORATORY ASSISTANT: Alert, SKIN: No rash IV: ok Labs Lab Laboratory Tests Test 09/07/16 09:00 09/07/16 15:18 09/07/16 16:25 White Blood Count 7.0x10^3/uL (4.0-11.0) Red Blood Count 3.12x10^6/uL (3.50-5.40) Hemoglobin 9.3g/dL (12.0-15.5) Hematocrit 27.9% (36.0-47.0) Mean Corpuscular Volume 89fL (79-100) Mean Corpuscular Hemoglobin 30pg (25-35) Mean Corpuscular Hemoglobin Concent 33g/dL (31-37) Red Cell Distribution Width 15.6% (11.5-14.5) Platelet Count 125x10^3/uL (140-400) Neutrophils (%) (Auto) 62% (31-73) Lymphocytes (%) (Auto) 22% (24-48) Monocytes (%) (Auto) 10% (0-9) Eosinophils (%) (Auto) 5% (0-3) Basophils (%) (Auto) 0% (0-3) Neutrophils # (Auto) 4.4x10^3uL (1.8-7.7) Lymphocytes # (Auto) 1.6x10^3/uL (1.0-4.8) Monocytes # (Auto) 0.7x10^3/uL (0.0-1.1) Eosinophils # (Auto) 0.3x10^3/uL (0.0-0.7) Basophils # (Auto) 0.0x10^3/uL (0.0-0.2) Sodium Level 141mmol/L (136-145) Potassium Level 3.6mmol/L (3.5-5.1) Chloride Level 101mmol/L (98-107) Carbon Dioxide Level 28mmol/L (21-32) Anion Gap 12 (6-14) Blood Urea Nitrogen 24mg/dL (7-20) Creatinine 5.1mg/dL (0.6-1.0) Estimated GFR (Cockcroft-Gault) 8.2 BUN/Creatinine Ratio 5 (6-20) Glucose Level 95mg/dL (70-99) Calcium Level 8.3mg/dL (8.5-10.1) Total Bilirubin 1.0mg/dL (0.2-1.0) Aspartate Amino Transf (AST/SGOT) 30U/L (15-37) Alanine Aminotransferase (ALT/SGPT) 27U/L (14-59) Alkaline Phosphatase 83U/L (46-116) Total Protein 6.3g/dL (6.4-8.2) Albumin 2.7g/dL (3.4-5.0) Albumin/Globulin Ratio 0.8 (1.0-1.7) Glucose (Fingerstick) 90mg/dL (70-99) 94mg/dL (70-99) Objective Assessment STCN sepsis 2/ bottles 09/04 POA - doing well CKD on HD DM h/o Hep B CHF Plan Plan of Care Cont Vanc and d/c Zosyn F/u Hep B viral load F/u labs EWA SCALES MD Sep 08, 2016 07:04
[2016-09-08 07:06] VITALS: BP 168/88
[2016-09-08] MEDS: PANTOPRAZOLE 40 MG TABLET.DR. PO SCH ×2 (07:30→16:30)
[2016-09-08] MEDS: BUDESONIDE 0.5 MG/2 ML NEBU. NEB SCH ×2 (07:59→18:07)
[2016-09-08] MEDS: INSULIN ASPART 300 UNITS/3 ML INSULN.PEN SQ SCH ×3 (08:00→17:00)
[2016-09-08] MEDS: ASPIRIN 325 MG TABLET PO SCH (08:00)
[2016-09-08] MEDS: IPRATRPIUM/ALBUTEROL 0.5/2.5MG 3 ML NEBU. NEB SCH ×4 (08:00→18:08)
--- NOTE | 2016-09-08 08:31 | CARD ---
APPROVED REPORT EXAM: Two-dimensional and M-mode echocardiogram with Doppler and color Doppler. Other Information Quality : GoodHR: 85bpm Rhythm : NSR INDICATION Congestive Heart Failure RISK FACTORS Hypertension 2D DIMENSIONS RVDd2.3 (2.9-3.5cm)Left Atrium(2D)4.5 (1.6-4.0cm) IVSd1.1 (0.7-1.1cm)Aortic Root(2D)2.0 (2.0-3.7cm) LVDd5.2 (3.9-5.9cm)LVOT Diameter2.3 (1.8-2.4cm) PWd1.1 (0.7-1.1cm)LVDs4.9 (2.5-4.0cm) FS (%) 5.8 %SV16.9 ml LVEF(%)12.9 (>50%) Aortic Valve AoV Peak Nirav.103.0cm/sAoV VTI19.4cm AO Peak GR.4.2mmHgLVOT VTI 14.83cm AO Mean GR.3mmHg Mitral Valve MV E Tkadhmcu26.3cm/sMV E Peak Gr.7mmHg MV DECEL [id number] A Ulprjpfh493.0cm/s MV E Mean Gr.4mmHgE/A Ratio0.7 MV A [id number] TDI Lateral E' P. V4.38cm/sMedial E' P. V3.86cm/s E/Lateral E'19.5E/Medial E'22.1 Tricuspid Valve TR P. [id number]/sRAP [id number] TR Peak Gr.42mmHg LEFT VENTRICLE The left ventricle is normal size. There is mild concentric left ventricular hypertrophy. Left ventri rigoberto systolic function is moderately impaired. The Ejection Fraction is 30-35%. There is moderate to s evere global hypokinesis of the left ventricle. Transmitral Doppler flow pattern is Grade I-abnormal relaxation pattern. No left ventricle thrombus noted on this study. RIGHT VENTRICLE The right ventricle is normal size. There is normal right ventricular wall thickness. The right ventr icular systolic function is normal. ATRIA The left atrium is moderately dilated. The right atrium size is normal. The interatrial septum is int act with no evidence for an atrial septal defect or patent foramen ovale as noted on 2-D or Doppler i maging. AORTIC VALVE The aortic valve is normal in structure and function. Doppler and Color Flow revealed no significant aortic regurgitation. There is no significant aortic valvular stenosis. MITRAL VALVE Mitral annular calcification is mild. The mitral valve leaflets are thickened. There is no evidence o f mitral valve prolapse. There is no mitral valve stenosis. Doppler and Color Flow revealed mild mitr al regurgitation. TRICUSPID VALVE Doppler and Color Flow revealed mild tricuspid regurgitation. The pulmonary artery systolic pressure is estimated at 45 mmHg. There is mild-moderate pulmonary hypertension. PULMONIC VALVE The pulmonic valve is not well visualized. GREAT VESSELS The aortic root is normal in size. The ascending aorta is normal in size. The IVC is normal in size a nd collapses >50% with inspiration. PERICARDIAL EFFUSION There is large right pleural effusion. There is no evidence of significant pericardial effusion. Critical Notification Critical Value: No <Conclusion> Left ventricle systolic function is moderately impaired. The Ejection Fraction is 30-35%. There is moderate to severe global hypokinesis of the left ventricle. Doppler and Color Flow revealed mild mitral regurgitation. Doppler and Color Flow revealed mild tricuspid regurgitation. The pulmonary artery systolic pressure is estimated at 45 mmHg. There is mild-moderate pulmonary hypertension. There is large right pleural effusion.
[2016-09-08] MEDS ORDERED: IV NORMAL SALINE 1000ML BAG 1,000 ML IV PRN (08:44)
[2016-09-08] MEDS ORDERED: DIALYSIS PATIENT. MC PRN ×2 (08:45)
--- NOTE | 2016-09-08 08:52 | PDOC ---
Dialysis Progress Note Dialysis Note Dialysis Note Seen on Hemodialysis, tolerating treatment Okay Vitals on Hemodialysis; 175/88 94 16 Afeb General Appearance: Awake: Alert Oriented x 1 Neck: No JVD or JVP Chest: CTA Reddy Heart: S1 S2 Abdomen - Soft NTND Extremities - No Edema ESRD: Dialysis as below F 180 NR 3.0 Hrs 4 K 2.5 Ca 140 Na 35 HC03 Qb 350 + Qd 500+ Heparin 0 Units Uf 3-4 Kgs or to dry weight as tolerated May give 25-50 gms of 25% Albumin if needed to maintain Hemodynamic stability Treatment plan reviewed and discussed with tmh teacher Vitals Vital Signs Vital Signs Date Time Temp Pulse Resp B/P Pulse Ox O2 Delivery O2 Flow Rate FiO2 09/08/16 08:10 93 Room Air 09/08/16 07:06 98.2 94 19 168/88 98.2 09/07/16 20:30 1.0 Labs Last Labs Laboratory Tests Test 09/06/16 17:12 09/06/16 20:50 09/07/16 09:00 09/07/16 15:18 Glucose (Fingerstick) 200mg/dL (70-99) 158mg/dL (70-99) 90mg/dL (70-99) White Blood Count 7.0x10^3/uL (4.0-11.0) Red Blood Count 3.12x10^6/uL (3.50-5.40) Hemoglobin 9.3g/dL (12.0-15.5) Hematocrit 27.9% (36.0-47.0) Mean Corpuscular Volume 89fL (79-100) Mean Corpuscular Hemoglobin 30pg (25-35) Mean Corpuscular Hemoglobin Concent 33g/dL (31-37) Red Cell Distribution Width 15.6% (11.5-14.5) Platelet Count 125x10^3/uL (140-400) Neutrophils (%) (Auto) 62% (31-73) Lymphocytes (%) (Auto) 22% (24-48) Monocytes (%) (Auto) 10% (0-9) Eosinophils (%) (Auto) 5% (0-3) Basophils (%) (Auto) 0% (0-3) Neutrophils # (Auto) 4.4x10^3uL (1.8-7.7) Lymphocytes # (Auto) 1.6x10^3/uL (1.0-4.8) Monocytes # (Auto) 0.7x10^3/uL (0.0-1.1) Eosinophils # (Auto) 0.3x10^3/uL (0.0-0.7) Basophils # (Auto) 0.0x10^3/uL (0.0-0.2) Sodium Level 141mmol/L (136-145) Potassium Level 3.6mmol/L (3.5-5.1) Chloride Level 101mmol/L (98-107) Carbon Dioxide Level 28mmol/L (21-32) Anion Gap 12 (6-14) Blood Urea Nitrogen 24mg/dL (7-20) Creatinine 5.1mg/dL (0.6-1.0) Estimated GFR (Cockcroft-Gault) 8.2 BUN/Creatinine Ratio 5 (6-20) Glucose Level 95mg/dL (70-99) Calcium Level 8.3mg/dL (8.5-10.1) Total Bilirubin 1.0mg/dL (0.2-1.0) Aspartate Amino Transf (AST/SGOT) 30U/L (15-37) Alanine Aminotransferase (ALT/SGPT) 27U/L (14-59) Alkaline Phosphatase 83U/L (46-116) Total Protein 6.3g/dL (6.4-8.2) Albumin 2.7g/dL (3.4-5.0) Albumin/Globulin Ratio 0.8 (1.0-1.7) Test 09/07/16 16:25 Glucose (Fingerstick) 94mg/dL (70-99) Laboratory Tests Test 09/07/16 09:00 09/07/16 15:18 09/07/16 16:25 White Blood Count 7.0x10^3/uL (4.0-11.0) Red Blood Count 3.12x10^6/uL (3.50-5.40) Hemoglobin 9.3g/dL (12.0-15.5) Hematocrit 27.9% (36.0-47.0) Mean Corpuscular Volume 89fL (79-100) Mean Corpuscular Hemoglobin 30pg (25-35) Mean Corpuscular Hemoglobin Concent 33g/dL (31-37) Red Cell Distribution Width 15.6% (11.5-14.5) Platelet Count 125x10^3/uL (140-400) Neutrophils (%) (Auto) 62% (31-73) Lymphocytes (%) (Auto) 22% (24-48) Monocytes (%) (Auto) 10% (0-9) Eosinophils (%) (Auto) 5% (0-3) Basophils (%) (Auto) 0% (0-3) Neutrophils # (Auto) 4.4x10^3uL (1.8-7.7) Lymphocytes # (Auto) 1.6x10^3/uL (1.0-4.8) Monocytes # (Auto) 0.7x10^3/uL (0.0-1.1) Eosinophils # (Auto) 0.3x10^3/uL (0.0-0.7) Basophils # (Auto) 0.0x10^3/uL (0.0-0.2) Sodium Level 141mmol/L (136-145) Potassium Level 3.6mmol/L (3.5-5.1) Chloride Level 101mmol/L (98-107) Carbon Dioxide Level 28mmol/L (21-32) Anion Gap 12 (6-14) Blood Urea Nitrogen 24mg/dL (7-20) Creatinine 5.1mg/dL (0.6-1.0) Estimated GFR (Cockcroft-Gault) 8.2 BUN/Creatinine Ratio 5 (6-20) Glucose Level 95mg/dL (70-99) Calcium Level 8.3mg/dL (8.5-10.1) Total Bilirubin 1.0mg/dL (0.2-1.0) Aspartate Amino Transf (AST/SGOT) 30U/L (15-37) Alanine Aminotransferase (ALT/SGPT) 27U/L (14-59) Alkaline Phosphatase 83U/L (46-116) Total Protein 6.3g/dL (6.4-8.2) Albumin 2.7g/dL (3.4-5.0) Albumin/Globulin Ratio 0.8 (1.0-1.7) Glucose (Fingerstick) 90mg/dL (70-99) 94mg/dL (70-99) Assessment Assessment Problems Medical Problems: (1) Pneumonia Status: Acute (2) Pulmonary edema Status: Acute (3) SOB (shortness of breath) Status: Acute Problems: Plan Plan of Care Problems Medical Problems: (1) Pneumonia Status: Acute (2) Pulmonary edema Status: Acute (3) SOB (shortness of breath) Status: Acute CHERI MURILLO MD Sep 08, 2016 08:52
[2016-09-08] MEDS: amLODIPine BESYLATE 10 MG TABLET PO SCH (09:00)
[2016-09-08] MEDS: POLYETHYLENE GLYCOL 3350 17 GM PACKET. PO SCH (09:00)
[2016-09-08] MEDS: PYRIDOXINE 50 MG TABLET. PO SCH (09:00)
[2016-09-08] MEDS: FOLIC ACID 1 MG TABLET. PO SCH (09:00)
[2016-09-08] MEDS: LISINOPRIL 5 MG TABLET. PO SCH (09:00)
--- NOTE | 2016-09-08 10:26 | PDOC ---
PROGRESS NOTES Subjective Subjective less sob, seen in dialysis Objective Objective Vital Signs Date Time Temp Pulse Resp B/P Pulse Ox O2 Delivery O2 Flow Rate FiO2 09/08/16 08:10 93 Room Air 09/08/16 07:06 98.2 94 19 168/88 98.2 09/07/16 20:30 1.0 Intake and Output 09/08/16 07:00 Intake Total 30 ml Balance 30 ml Intake Oral 30 ml # Voids 2 # Bowel Movements 1 Physical Exam Abdomen: Soft, No tenderness Heart: Regular rate Extremities: No edema General: No acute distress HEENT: Atraumatic, PERRLA Lungs: Other Neck: Supple Psych/Mental Status: Other (sleepy) Skin: No breakdown Diagnosis Problem List Problems Medical Problems: (1) Pneumonia Status: Acute (2) Pulmonary edema Status: Acute (3) SOB (shortness of breath) Status: Acute RENAL FAILURE: ESRD Assessment Assessment Bacteremia, gram positive blood c/s, 2 out of 4 . agitation and confusion 1. Pneumonia suspect gram neg and gram positive. 2. Heart failure, diastolic, chronic. 3. End-stage renal disease, on dialysis Wednesday, Wednesday and Wednesday. 4. Diabetes, insulin-dependent. 5. Hypertension. 6. 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 Plan: dialysis today spoke with renal and ID. On Zosyn.Received one dose of IV Vancomycin. Patient is much worse- did not respond to breathing RX. she is gettingt HD this AM. Continue HD. ct chest plural effusion Problems: Plan Plan of Care Problems Medical Problems: (1) Pneumonia Status: Acute (2) Pulmonary edema Status: Acute (3) SOB (shortness of breath) Status: Acute Comment Review of Relevant I have reviewed the following items reji (where applicable) has been applied. Labs Laboratory Tests Test 09/07/16 15:18 09/07/16 16:25 09/08/16 10:18 Glucose (Fingerstick) 90mg/dL (70-99) 94mg/dL (70-99) 107mg/dL (70-99) Microbiology 09/04/16 Blood Culture - Final, Complete 09/04/16 Blood Culture Result 1 (ANABELL) - Final, Complete 09/06/16 Gram Stain - Final, Complete Medications Current Medications Info (PHARMACY MONITORING -- do not chart) 1 each PRN DAILY PRN MC SEE COMMENTS ; Start 09/08/16 at 08:45; Status UNV Info (PHARMACY MONITORING -- do not chart) 1 each PRN DAILY PRN MC SEE COMMENTS ; Start 09/08/16 at 08:45; Status UNV Sodium Chloride (Iv Sodium Chloride 0.9% 1000ml Bag) 1,000 ml @ 1,000 mls/hr Q1H PRN IV hypotension; Start 09/08/16 at 08:44; Stop 09/08/16 at 14:43 Vancomycin HCl 500 mg/Sodium Chloride 100 ml @ 100 mls/hr QMWF IV Last administered on 09/07/16t 18:10; Start 09/07/16 at 16:00 Vitals/I & O Vital Sign - Last 24 Hours 09/07/16 09/07/16 09/07/16 09/07/16 12:25 15:11 16:26 19:45 Temp 96.3 96.3 Pulse 85 89 Resp 16 18 B/P 131/69 150/74 Pulse Ox 97 97 97 O2 Delivery Nasal Cannula Room Air Nasal Cannula Room Air O2 Flow Rate 2.0 2.0 09/07/16 09/07/16 09/07/16 09/07/16 19:48 19:50 20:30 22:20 Temp 98.2 98.2 Pulse Ox 96 96 O2 Delivery Room Air Room Air Nasal Cannula O2 Flow Rate 1.0 09/07/16 09/07/16 09/08/16 09/08/16 23:00 23:28 03:03 07:06 Temp 98.4 98.2 98.4 98.2 Pulse 95 90 94 Resp 18 16 19 B/P 155/90 162/80 168/88 Pulse Ox 92 92 93 O2 Delivery Room Air Room Air Room Air Room Air 09/08/16 09/08/16 08:00 08:10 Pulse Ox 93 O2 Delivery Room Air Room Air Intake and Output 09/07/16 09/07/16 09/08/16 15:00 23:00 07:00 Intake Total 30 ml 0 ml Balance 30 ml 0 ml Nutrition Consultation Dietary Evaluation: Recommendations by RD: Increase Calorie Intake, Protein supplementation Comments: Rec. continue novasource renal BID - 475kcal and 21.6g protein per serving Expected Outcomes/Goals: to meet >75% est nutr needs Malnutrition Findings: Body Fat Depletion (Non Severe: Mild Depletion Weight Status: Appropriate FRANCISCO LAMBERT MD Sep 08, 2016 10:26
[2016-09-08 12:55] VITALS: BP 141/65
[2016-09-08] MEDS: VANCOMYCIN PER PHARMACY MC PRN ×2 (15:08→15:15)
[2016-09-08 15:23] VITALS: BP 146/73
--- NOTE | 2016-09-08 15:52 | RAD ---
CT of the chest without contrast, 09/08/2016: History: Pleural effusion Noncontrast scans were obtained as requested. Comparison is made to a study from 09/17/2015. There is moderate calcific plaquing of the thoracic aorta and its branches. Scattered coronary artery calcifications are present. The ascending aorta is at the upper limits of normal in size measuring 3.9 cm in width. The heart is mildly enlarged. There are calcified mediastinal and hilar lymph nodes. No definite mediastinal adenopathy is seen. A moderate volume of right-sided pleural fluid has developed. There is moderate underlying atelectasis in the right lower lobe and right middle lobe with associated air bronchograms. A small amount of left-sided pleural fluid has developed with mild atelectasis posteriorly in the left lower lobe. There are streaky parenchymal opacities in the left apex with a nearby 10 mm irregular parenchymal nodule. These findings are unchanged and are likely on a postinflammatory basis. There is a calcified granuloma in the right upper lobe. There is a cluster of tiny nodule seen laterally in the right upper lobe on images 24 and 25, unchanged since the previous study. These are also likely due to old granulomatous disease. Incidental note is made of mild bilateral renal cortical scarring. Surgical clips and a vascular stent are noted in the left axillary region. IMPRESSION: 1. Interval development of a moderate-sized right pleural effusion with moderate underlying atelectasis in the right lower and middle lobes. A component of pneumonia cannot be excluded. 2. New small left pleural effusion with mild left basilar atelectasis. 3. Unchanged left apical pleural-parenchymal and nodular opacities as well as tiny right upper lobe nodules, likely on a postinflammatory basis. 4. Aortic and coronary artery atherosclerosis. PQRS Compliance Statement: One or more of the following individualized dose reduction techniques were utilized for this examination: 1. Automated exposure control 2. Adjustment of the mA and/or kV according to patient size 3. Use of iterative reconstruction technique
--- NOTE | 2016-09-08 15:59 | PDOC ---
PULMONARY PROGRESS NOTES Subjective no sign of distress does not follow any commands Vitals Vital Signs Date Time Temp Pulse Resp B/P Pulse Ox O2 Delivery O2 Flow Rate FiO2 09/08/16 15:23 98.0 90 16 146/73 99 Nasal Cannula 2.0 98.0 General: Alert, No acute distress HEENT: Other (nc at perrl ) Lungs: Other (decrease bs) Cardiovascular: S1, S2 Abdomen: Soft, Non-tender Neuro Exam: Alert Extremities: No Edema Skin: Warm Labs Laboratory Tests Test 09/06/16 17:12 09/06/16 20:50 09/07/16 09:00 09/07/16 15:18 Glucose (Fingerstick) 200mg/dL (70-99) 158mg/dL (70-99) 90mg/dL (70-99) White Blood Count 7.0x10^3/uL (4.0-11.0) Red Blood Count 3.12x10^6/uL (3.50-5.40) Hemoglobin 9.3g/dL (12.0-15.5) Hematocrit 27.9% (36.0-47.0) Mean Corpuscular Volume 89fL (79-100) Mean Corpuscular Hemoglobin 30pg (25-35) Mean Corpuscular Hemoglobin Concent 33g/dL (31-37) Red Cell Distribution Width 15.6% (11.5-14.5) Platelet Count 125x10^3/uL (140-400) Neutrophils (%) (Auto) 62% (31-73) Lymphocytes (%) (Auto) 22% (24-48) Monocytes (%) (Auto) 10% (0-9) Eosinophils (%) (Auto) 5% (0-3) Basophils (%) (Auto) 0% (0-3) Neutrophils # (Auto) 4.4x10^3uL (1.8-7.7) Lymphocytes # (Auto) 1.6x10^3/uL (1.0-4.8) Monocytes # (Auto) 0.7x10^3/uL (0.0-1.1) Eosinophils # (Auto) 0.3x10^3/uL (0.0-0.7) Basophils # (Auto) 0.0x10^3/uL (0.0-0.2) Sodium Level 141mmol/L (136-145) Potassium Level 3.6mmol/L (3.5-5.1) Chloride Level 101mmol/L (98-107) Carbon Dioxide Level 28mmol/L (21-32) Anion Gap 12 (6-14) Blood Urea Nitrogen 24mg/dL (7-20) Creatinine 5.1mg/dL (0.6-1.0) Estimated GFR (Cockcroft-Gault) 8.2 BUN/Creatinine Ratio 5 (6-20) Glucose Level 95mg/dL (70-99) Calcium Level 8.3mg/dL (8.5-10.1) Total Bilirubin 1.0mg/dL (0.2-1.0) Aspartate Amino Transf (AST/SGOT) 30U/L (15-37) Alanine Aminotransferase (ALT/SGPT) 27U/L (14-59) Alkaline Phosphatase 83U/L (46-116) Total Protein 6.3g/dL (6.4-8.2) Albumin 2.7g/dL (3.4-5.0) Albumin/Globulin Ratio 0.8 (1.0-1.7) Test 09/07/16 16:25 09/08/16 10:18 Glucose (Fingerstick) 94mg/dL (70-99) 107mg/dL (70-99) Laboratory Tests Test 09/07/16 16:25 09/08/16 10:18 Glucose (Fingerstick) 94mg/dL (70-99) 107mg/dL (70-99) Medications Active Scripts Medications Dose Route/Sig Days Date Category Aspirin 325 Mg Tablet 325 Mg PO [id number] 03/12/16 Rx Amox Tr-K Clv 500-125 Mg Tab (Amoxicillin/Potassium Clav) 1 Each Tablet 1 Tab PO Q24H 03/12/16 Rx Hydralazine Hcl 25 Mg Tablet 1 Tab PO TID PRN 02/27/16 Rx [Sennosides/Docusate Sodium] 1 TAB Tablet 1 Tab PO HS 01/11/15 Rx Gas-X (Simethicone) 80 Mg Tab.chew 80 Mg PO PRN AFTMEALHC PRN 30 01/11/15 Rx [Polyethylene Glycol 3350] 17 GM Packet 17 Gm PO DAILY 01/11/15 Rx Vitamin B-6 (Pyridoxine Hcl) 50 Mg Tablet 50 Mg PO DAILY 30 01/11/15 Rx Protonix (Pantoprazole Sodium) 40 Mg Tablet 40 Mg PO BIDAC 01/11/15 Rx Novolog Flexpen (Insulin Aspart) 300 Units/3 Ml Insuln.pen 0 Units SQ TIDWMEALS 30 01/11/15 Rx Folic Acid 1 Mg Tablet 1 Mg PO DAILY 01/11/15 Rx Aranesp Syringe (Darbepoetin Azeem In Polysorbat) 25 Mcg/0.42 Ml Disp.syrin 25 Mcg SQ WEEKLYHS 01/11/15 Rx Catapres (Clonidine Hcl) 0.1 Mg Tablet 0.1 Mg PO PRN Q6HRS PRN 01/11/15 Rx [Albuterol Sulfate] 2.5 MG/3 ML Nebu 2.5 Mg NEB PRN Q4HRS PRN 01/11/15 Rx Norvasc (Amlodipine Besylate) 10 Mg Tablet 10 Mg PO DAILY 01/11/15 Rx Tylenol (Acetaminophen) 325 Mg Tablet 650 Mg PO PRN Q6HRS PRN 30 01/11/15 Rx Comments IMPRESSION: Improved inspiratory effort. Right pleural effusion with associated volume loss persists. Mild pulmonary vascular congestion Impression . 1. Acute hypoxemic respiratory failure, multifactorial in etiology. 2. Abnormal chest x-ray.c/w CHF 3. Pneumonia, less likely 4. Acute diastolic congestive heart failure. 5. Acute bronchospasm, wheezing.resolved 6. End-stage renal disease, on hemodialysis. 7. History of tuberculosis, treated. 8. Diabetes mellitus. 9. Hypertension. 10, Bacteremia, coag neg, probably contaminant Plan . resp status is compensated, on RA antibx per ID HD [id number] will see KARLI PRETTY MD Sep 08, 2016 15:59
[2016-09-08] MEDS ORDERED: VANCOMYCIN 500 MG in IV NORMAL SALINE 100ML 100 ML IV ONE (16:00)
[2016-09-08 19:06] VITALS: BP 162/73
[2016-09-08] MEDS: SENNOSIDES/DOCUSATE 8.6/50MG TABLET. PO SCH (21:00)
[2016-09-08 23:28] VITALS: BP 142/78
[2016-09-09] VITALS (7 sets, daily range): BP systolic 119–186; BP diastolic 46–84
[2016-09-09] MEDS ORDERED: VANCOMYCIN RANDOM LEVEL. MC ONE (06:00)
[2016-09-09] MEDS: HEPARIN PF for SUB-Q USE 5,000 UNIT/0.5 ML VIAL. SQ SCH ×3 (06:05→22:19)
[2016-09-09] MEDS: BUDESONIDE 0.5 MG/2 ML NEBU. NEB SCH ×2 (07:25→19:13)
[2016-09-09] MEDS: IPRATRPIUM/ALBUTEROL 0.5/2.5MG 3 ML NEBU. NEB SCH ×4 (07:25→19:13)
[2016-09-09] MEDS: PANTOPRAZOLE 40 MG TABLET.DR. PO SCH ×2 (07:30→16:30)
[2016-09-09] MEDS: INSULIN ASPART 300 UNITS/3 ML INSULN.PEN SQ SCH ×3 (08:00→17:00)
[2016-09-09] MEDS: ASPIRIN 325 MG TABLET PO SCH (08:00)
--- NOTE | 2016-09-09 08:00 | PDOC ---
Infectious Disease Note Subjective Subjective Alert and non verbal ROS ROS Unobtainable no family Nursing reports phone interpreters have not been able to understand her and she wont talk anyway now Vital Sign Vital Signs Vital Signs Date Time Temp Pulse Resp B/P Pulse Ox O2 Delivery O2 Flow Rate FiO2 09/09/16 07:25 92 Room Air 09/09/16 07:12 98.1 95 18 175/81 98.1 09/08/16 19:20 2.0 Physical Exam PHYSICAL EXAM GENERAL: NAD, Alert HEENT: PERRL, OC/OP -dry NECK: Supple, no JVD, no LN LUNGS: Clear HEART: S1S2, no gallop, no murmur ABD: Soft, NT, no organomegaly, no rebound EXT: No edema, no cyanosis [employer] FARMER: Alert, SKIN: No rash IV: ok Labs Lab Laboratory Tests Test 09/08/16 08:11 09/08/16 10:18 09/08/16 16:57 09/09/16 03:35 Glucose (Fingerstick) 77mg/dL (70-99) 107mg/dL (70-99) 94mg/dL (70-99) Random Vancomycin Level 28.7mcg/mL Objective Assessment STCN sepsis 06/27 bottles 09/04 POA - doing well CKD on HD DM h/o Hep B CHF Plan Plan of Care Cont Vanc for 2 more doses then d/c F/u Hep B viral load Ok to transfer and f/u Hep B in outpatient EWA SCALES MD Sep 09, 2016 08:00
[2016-09-09] MEDS: FOLIC ACID 1 MG TABLET. PO SCH (08:14)
[2016-09-09] MEDS: amLODIPine BESYLATE 10 MG TABLET PO SCH (08:14)
[2016-09-09] MEDS: POLYETHYLENE GLYCOL 3350 17 GM PACKET. PO SCH (08:14)
[2016-09-09] MEDS: PYRIDOXINE 50 MG TABLET. PO SCH (08:14)
[2016-09-09] MEDS: LISINOPRIL 5 MG TABLET. PO SCH (09:00)
[2016-09-09] MEDS: VANCOMYCIN PER PHARMACY MC PRN (09:59)
--- NOTE | 2016-09-09 10:11 | PDOC ---
PROGRESS NOTES Subjective Subjective weak,not eating Objective Objective Vital Signs Date Time Temp Pulse Resp B/P Pulse Ox O2 Delivery O2 Flow Rate FiO2 09/09/16 08:00 Room Air 09/09/16 07:25 92 09/09/16 07:12 98.1 95 18 175/81 98.1 09/08/16 19:20 2.0 Intake and Output 09/09/16 07:00 Intake Total 0 ml Output Total 0 ml Balance 0 ml Intake Oral 0 ml Output Urine Total 0 ml Physical Exam Abdomen: Soft, No tenderness Heart: Regular rate Extremities: No edema General: No acute distress HEENT: Atraumatic, PERRLA Lungs: Other Neck: Supple Psych/Mental Status: Other (sleepy) Skin: No breakdown Diagnosis Problem List Problems Medical Problems: (1) Pneumonia Status: Acute (2) Pulmonary edema Status: Acute (3) SOB (shortness of breath) Status: Acute RENAL FAILURE: ESRD Assessment Assessment Bacteremia, gram positive blood c/s, 2 out of 4 .saph coagulase neg. agitation and confusion 1. Pneumonia suspect gram neg and gram positive. 2. Heart failure, diastolic, chronic. 3. End-stage renal disease, on dialysis Wednesday, Wednesday and Wednesday. 4. Diabetes, insulin-dependent. 5. Hypertension. 6. 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 Plan: dialysis tomorrow. CT chest pleural effusion,moderate On Zosyn.Received one dose of IV Vancomycin. Patient is much worse- did not respond to breathing RX. ?pleural tap. spoke with pulmonary Problems: Plan Plan of Care Problems Medical Problems: (1) Pneumonia Status: Acute (2) Pulmonary edema Status: Acute (3) SOB (shortness of breath) Status: Acute Comment Review of Relevant I have reviewed the following items reji (where applicable) has been applied. Labs Laboratory Tests Test 09/08/16 10:18 09/08/16 16:57 09/09/16 03:35 Glucose (Fingerstick) 107mg/dL (70-99) 94mg/dL (70-99) Random Vancomycin Level 28.7mcg/mL Microbiology 09/04/16 Blood Culture - Final, Complete 09/04/16 Blood Culture Result 1 (ANABELL) - Final, Complete 09/06/16 Sputum Culture - Final, Complete 09/06/16 Sputum Result 1 - Final, Complete Medications Current Medications Vancomycin HCl 1 each 1 each 1X ONCE MC Last administered on 09/09/16 06:00; Start 09/09/16 at 06:00; Stop 09/09/16 at 06:01; Status DC Vancomycin HCl/ Sodium Chloride (Iv Sodium Chloride 0.9% 100ml) 100 ml @ 100 mls/hr 1X ONCE IV Last administered on 09/08/16 16:33; Start 09/08/16 at 16: 00; Stop 09/08/16 at 16:59; Status DC Vancomycin HCl/ Sodium Chloride (Iv Sodium Chloride 0.9% 100ml) 100 ml @ 100 mls/hr 1X ONCE IV ; Start 09/11/16 at 16:00; Stop 09/11/16 at 16:59 Vitals/I & O Vital Sign - Last 24 Hours 09/08/16 09/08/16 09/08/16 09/08/16 12:55 15:23 18:09 18:13 Temp 97.6 98.0 97.6 98.0 Pulse 87 90 Resp 17 16 B/P 141/65 146/73 Pulse Ox 96 99 92 92 O2 Delivery Nasal Cannula Nasal Cannula Room Air Room Air O2 Flow Rate 2.0 2.0 09/08/16 09/08/16 09/08/16 09/09/16 19:06 19:20 23:28 03:04 Temp 98.8 98.1 98.1 98.8 98.1 98.1 Pulse 106 102 99 Resp 22 20 20 B/P 162/73 142/78 142/78 Pulse Ox 93 93 94 O2 Delivery Room Air Room Air Room Air Room Air O2 Flow Rate 2.0 09/09/16 09/09/16 09/09/16 07:12 07:25 08:00 Temp 98.1 98.1 Pulse 95 Resp 18 B/P 175/81 Pulse Ox 95 92 O2 Delivery Room Air Room Air Room Air Intake and Output 09/08/16 09/08/16 09/09/16 15:00 23:00 07:00 Intake Total 0 ml 0 ml Output Total 0 ml 0 ml Balance 0 ml 0 ml Nutrition Consultation Dietary Evaluation: Recommendations by RD: Increase Calorie Intake, Protein supplementation Comments: Rec. continue novasource renal BID - 475kcal and 21.6g protein per serving Expected Outcomes/Goals: to meet >75% est nutr needs Malnutrition Findings: Body Fat Depletion (Non Severe: Mild Depletion Weight Status: Appropriate FRANCISCO LAMBERT MD Sep 09, 2016 10:11
--- NOTE | 2016-09-09 13:59 | PDOC ---
Dialysis Progress Note Dialysis Note Dialysis Note Seen on Hemodialysis, tolerating treatment poorly Vitals on Hemodialysis; 87/41 97 16 Afeb General Appearance: Awake: Alert Oriented x ? 1 Neck: No JVD or JVP Chest: CTA Reddy Heart: S1 S2 Abdomen - Soft NTND Extremities - No Edema ESRD: Dialysis as below F 180 NR 3.0 Hrs 4 K 2.5 Ca 140 Na 35 HC03 Qb 350 + Qd 500+ Heparin 0 Units Uf 0-1 Kgs or to dry weight as tolerated May give 25-50 gms of 25% Albumin if needed to maintain Hemodynamic stability Treatment plan reviewed and discussed with junior net developer Will reval on HD after IV Albumin is given due to labile BP Vitals Vital Signs Vital Signs Date Time Temp Pulse Resp B/P Pulse Ox O2 Delivery O2 Flow Rate FiO2 09/09/16 11:38 98.1 88 20 161/69 93 Room Air 98.1 09/08/16 19:20 2.0 Labs Last Labs Laboratory Tests Test 09/07/16 15:18 09/07/16 16:25 09/08/16 08:11 09/08/16 10:18 Glucose (Fingerstick) 90mg/dL (70-99) 94mg/dL (70-99) 77mg/dL (70-99) 107mg/dL (70-99) Test 09/08/16 16:57 09/09/16 03:35 09/09/16 12:10 Glucose (Fingerstick) 94mg/dL (70-99) 77mg/dL (70-99) Random Vancomycin Level 28.7mcg/mL Laboratory Tests Test 09/08/16 16:57 09/09/16 03:35 09/09/16 12:10 Glucose (Fingerstick) 94mg/dL (70-99) 77mg/dL (70-99) Random Vancomycin Level 28.7mcg/mL Assessment Assessment Problems Medical Problems: (1) Pneumonia Status: Acute (2) Pulmonary edema Status: Acute (3) SOB (shortness of breath) Status: Acute Problems: Plan Plan of Care Problems Medical Problems: (1) Pneumonia Status: Acute (2) Pulmonary edema Status: Acute (3) SOB (shortness of breath) Status: Acute CHERI MURILLO MD Sep 09, 2016 13:59
[2016-09-09] MEDS ORDERED: ALBUMIN HUMAN 25% 200 ML IV ONE (14:45)
--- NOTE | 2016-09-09 14:48 | PDOC ---
PULMONARY PROGRESS NOTES Subjective no sign of distress does not follow any commands Vitals Vital Signs Date Time Temp Pulse Resp B/P Pulse Ox O2 Delivery O2 Flow Rate FiO2 09/09/16 11:38 98.1 88 20 161/69 93 Room Air 98.1 09/08/16 19:20 2.0 General: Alert, No acute distress HEENT: Other (nc at perrl ) Lungs: Other (decrease bs) Cardiovascular: S1, S2 Abdomen: Soft, Non-tender Neuro Exam: Alert Extremities: No Edema Skin: Warm Labs Laboratory Tests Test 09/07/16 15:18 09/07/16 16:25 09/08/16 08:11 09/08/16 10:18 Glucose (Fingerstick) 90mg/dL (70-99) 94mg/dL (70-99) 77mg/dL (70-99) 107mg/dL (70-99) Test 09/08/16 16:57 09/09/16 03:35 09/09/16 12:10 Glucose (Fingerstick) 94mg/dL (70-99) 77mg/dL (70-99) Random Vancomycin Level 28.7mcg/mL Laboratory Tests Test 09/08/16 16:57 09/09/16 03:35 09/09/16 12:10 Glucose (Fingerstick) 94mg/dL (70-99) 77mg/dL (70-99) Random Vancomycin Level 28.7mcg/mL Medications Active Scripts Medications Dose Route/Sig Days Date Category Aspirin 325 Mg Tablet 325 Mg PO DAILYWBKFT 03/12/16 Rx Amox Tr-K Clv 500-125 Mg Tab (Amoxicillin/Potassium Clav) 1 Each Tablet 1 Tab PO Q24H 03/12/16 Rx Hydralazine Hcl 25 Mg Tablet 1 Tab PO TID PRN 02/27/16 Rx [Sennosides/Docusate Sodium] 1 TAB Tablet 1 Tab PO HS 01/11/15 Rx Gas-X (Simethicone) 80 Mg Tab.chew 80 Mg PO PRN AFTMEALHC PRN 30 01/11/15 Rx [Polyethylene Glycol 3350] 17 GM Packet 17 Gm PO DAILY 01/11/15 Rx Vitamin B-6 (Pyridoxine Hcl) 50 Mg Tablet 50 Mg PO DAILY 30 01/11/15 Rx Protonix (Pantoprazole Sodium) 40 Mg Tablet 40 Mg PO BIDAC 01/11/15 Rx Novolog Flexpen (Insulin Aspart) 300 Units/3 Ml Insuln.pen 0 Units SQ TIDWMEALS 30 01/11/15 Rx Folic Acid 1 Mg Tablet 1 Mg PO DAILY 01/11/15 Rx Aranesp Syringe (Darbepoetin Azeem In Polysorbat) 25 Mcg/0.42 Ml Disp.syrin 25 Mcg SQ WEEKLYHS 01/11/15 Rx Catapres (Clonidine Hcl) 0.1 Mg Tablet 0.1 Mg PO PRN Q6HRS PRN 01/11/15 Rx [Albuterol Sulfate] 2.5 MG/3 ML Nebu 2.5 Mg NEB PRN Q4HRS PRN 01/11/15 Rx Norvasc (Amlodipine Besylate) 10 Mg Tablet 10 Mg PO DAILY 01/11/15 Rx Tylenol (Acetaminophen) 325 Mg Tablet 650 Mg PO PRN Q6HRS PRN 30 01/11/15 Rx Comments IMPRESSION: Improved inspiratory effort. Right pleural effusion with associated volume loss persists. Mild pulmonary vascular congestion Impression . 1. Acute hypoxemic respiratory failure, multifactorial in etiology. 2. Abnormal chest x-ray.c/w CHF. ct chest with RLL effusion, small on left 3. Pneumonia, less likely 4. Acute diastolic congestive heart failure. 5. Acute bronchospasm, wheezing.resolved 6. End-stage renal disease, on hemodialysis. 7. History of tuberculosis, treated. 8. Diabetes mellitus. 9. Hypertension. 10, Bacteremia, coag neg, probably contaminant Plan . resp status is compensated, on RA will hold on thoracentesis for now. Pt asymptomatic continue increase UF/HD antibx per ID KARLI ANNE MD Sep 09, 2016 14:48
[2016-09-09] MEDS ORDERED: hydrALAZINE 20 MG/ML VIAL. IVP PRN (20:00)
[2016-09-09] MEDS: SENNOSIDES/DOCUSATE 8.6/50MG TABLET. PO SCH (20:35)
[2016-09-10 03:09] VITALS: BP 109/54
[2016-09-10 04:00] LABS: BASO % 1 % (0-3); EOS % 1 % (0-3); HEMATOCRIT 35.3 % (36.0-47.0); HEMOGLOBIN 11.3 g/dL (12.0-15.5); LYMPH # 1.4 x10^3/uL (1.0-4.8); LYMPH % 18 % (24-48); MEAN CORPUSCULAR HEMOGLOBIN 29 pg (25-35); MEAN CORPUSCULAR HGB CONC 32 g/dL (31-37); MEAN CORPUSCULAR VOLUME 91 fL (79-100); MONO % 12 % (0-9); NEUT % 68 % (31-73); PLATELET COUNT 199 x10^3/uL (140-400); RED BLOOD COUNT 3.88 x10^6/uL (3.50-5.40); RED CELL DISTRIBUTION WIDTH 15.9 % (11.5-14.5); WHITE BLOOD COUNT 8.1 x10^3/uL (4.0-11.0)
[2016-09-10 04:19] LABS: CALCIUM 10.3 mg/dL (8.5-10.1); CREATININE 2.8 mg/dL (0.6-1.0); GFR 16.4; POTASSIUM 3.8 mmol/L (3.5-5.1)
[2016-09-10] MEDS: HEPARIN PF for SUB-Q USE 5,000 UNIT/0.5 ML VIAL. SQ SCH ×3 (06:33→22:00)
[2016-09-10 07:14] VITALS: BP 95/57
[2016-09-10] MEDS: PANTOPRAZOLE 40 MG TABLET.DR. PO SCH ×2 (07:30→16:30)
[2016-09-10] MEDS: BUDESONIDE 0.5 MG/2 ML NEBU. NEB SCH ×2 (07:31→18:11)
[2016-09-10] MEDS: IPRATRPIUM/ALBUTEROL 0.5/2.5MG 3 ML NEBU. NEB SCH ×4 (07:31→18:12)
[2016-09-10] MEDS: INSULIN ASPART 300 UNITS/3 ML INSULN.PEN SQ SCH ×3 (08:00→17:28)
[2016-09-10] MEDS: ASPIRIN 325 MG TABLET PO SCH (08:00)
--- NOTE | 2016-09-10 08:35 | PDOC ---
Infectious Disease Note Subjective Subjective Alert and non verbal ROS ROS Not obtainable Vital Sign Vital Signs Vital Signs Date Time Temp Pulse Resp B/P Pulse Ox O2 Delivery O2 Flow Rate FiO2 09/10/16 08:21 Room Air 09/10/16 07:31 96 09/10/16 07:14 97.3 82 17 95/57 97.3 Physical Exam PHYSICAL EXAM GENERAL: NAD, Alert - nonresponsive. 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 SKIN: No rash IV: ok Labs Lab Laboratory Tests Test 09/09/16 12:10 09/09/16 18:28 09/09/16 19:56 09/09/16 19:59 Glucose (Fingerstick) 77mg/dL (70-99) 64mg/dL (70-99) 195mg/dL (70-99) 185mg/dL (70-99) Test 09/09/16 22:20 09/10/16 03:10 09/10/16 07:52 Glucose (Fingerstick) 365mg/dL (70-99) 91mg/dL (70-99) White Blood Count 8.1x10^3/uL (4.0-11.0) Red Blood Count 3.88x10^6/uL (3.50-5.40) Hemoglobin 11.3g/dL (12.0-15.5) Hematocrit 35.3% (36.0-47.0) Mean Corpuscular Volume 91fL (79-100) Mean Corpuscular Hemoglobin 29pg (25-35) Mean Corpuscular Hemoglobin Concent 32g/dL (31-37) Red Cell Distribution Width 15.9% (11.5-14.5) Platelet Count 199x10^3/uL (140-400) Neutrophils (%) (Auto) 68% (31-73) Lymphocytes (%) (Auto) 18% (24-48) Monocytes (%) (Auto) 12% (0-9) Eosinophils (%) (Auto) 1% (0-3) Basophils (%) (Auto) 1% (0-3) Neutrophils # (Auto) 5.5x10^3uL (1.8-7.7) Lymphocytes # (Auto) 1.4x10^3/uL (1.0-4.8) Monocytes # (Auto) 1.0x10^3/uL (0.0-1.1) Eosinophils # (Auto) 0.1x10^3/uL (0.0-0.7) Basophils # (Auto) 0.0x10^3/uL (0.0-0.2) Sodium Level 139mmol/L (136-145) Potassium Level 3.8mmol/L (3.5-5.1) Chloride Level 97mmol/L (98-107) Carbon Dioxide Level 31mmol/L (21-32) Anion Gap 11 (6-14) Blood Urea Nitrogen 15mg/dL (7-20) Creatinine 2.8mg/dL (0.6-1.0) Estimated GFR (Cockcroft-Gault) 16.4 Glucose Level 256mg/dL (70-99) Calcium Level 10.3mg/dL (8.5-10.1) Objective Assessment Failure to thrive -not eating, even food from home STCN sepsis 06/27 bottles 09/04 POA - doing well from vitals and lab standpoint CKD on HD DM h/o Hep B - DNA level barely + improved from 2013. CHF Plan Plan of Care Cont Vanc for 2 more doses then d/c Agree with Palliative EWA Cash MD Sep 10, 2016 08:35
[2016-09-10] MEDS: amLODIPine BESYLATE 10 MG TABLET PO SCH (09:00)
[2016-09-10] MEDS: FOLIC ACID 1 MG TABLET. PO SCH (09:00)
[2016-09-10] MEDS: POLYETHYLENE GLYCOL 3350 17 GM PACKET. PO SCH (09:00)
[2016-09-10] MEDS: PYRIDOXINE 50 MG TABLET. PO SCH (09:00)
[2016-09-10] MEDS: LISINOPRIL 5 MG TABLET. PO SCH (09:00)
--- NOTE | 2016-09-10 09:48 | PDOC ---
PROGRESS NOTES Subjective Subjective sob Objective Objective Vital Signs Date Time Temp Pulse Resp B/P Pulse Ox O2 Delivery O2 Flow Rate FiO2 09/10/16 09:00 82 95/57 09/10/16 08:21 Room Air 09/10/16 07:31 96 09/10/16 07:14 97.3 17 97.3 Intake and Output 09/10/16 07:00 Intake Total 120 ml Output Total 352 ml Balance -232 ml Intake Oral 120 ml Output Urine Total 350 ml Stool Total 2 ml # Bowel Movements 4 Physical Exam Abdomen: Soft, No tenderness Heart: Regular rate Extremities: No edema General: No acute distress HEENT: Atraumatic, PERRLA Lungs: Other Neck: Supple Psych/Mental Status: Other (sleepy) Skin: No breakdown Diagnosis Problem List Problems Medical Problems: (1) Pneumonia Status: Acute (2) Pulmonary edema Status: Acute (3) SOB (shortness of breath) Status: Acute RENAL FAILURE: ESRD Assessment Assessment Bacteremia, gram positive blood c/s, 2 out of 4 .saph coagulase neg. agitation and confusion 1. Pneumonia suspect gram neg and gram positive. 2. Heart failure, diastolic, chronic. 3. End-stage renal disease, on dialysis Wednesday, Wednesday and Wednesday. 4. Diabetes, insulin-dependent. 5. Hypertension. 6. 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 Plan:spoke with pulmonary dialysis tomorrow CT chest pleural effusion,moderate On Zosyn.Received one dose of IV Vancomycin. Patient is much worse- did not respond to breathing RX. no need for pleural tap. Problems: Plan Plan of Care Problems Medical Problems: (1) Pneumonia Status: Acute (2) Pulmonary edema Status: Acute (3) SOB (shortness of breath) Status: Acute Comment Review of Relevant I have reviewed the following items reji (where applicable) has been applied. Labs Laboratory Tests Test 09/09/16 12:10 09/09/16 18:28 09/09/16 19:56 09/09/16 19:59 Glucose (Fingerstick) 77mg/dL (70-99) 64mg/dL (70-99) 195mg/dL (70-99) 185mg/dL (70-99) Test 09/09/16 22:20 09/10/16 03:10 09/10/16 07:52 Glucose (Fingerstick) 365mg/dL (70-99) 91mg/dL (70-99) White Blood Count 8.1x10^3/uL (4.0-11.0) Red Blood Count 3.88x10^6/uL (3.50-5.40) Hemoglobin 11.3g/dL (12.0-15.5) Hematocrit 35.3% (36.0-47.0) Mean Corpuscular Volume 91fL (79-100) Mean Corpuscular Hemoglobin 29pg (25-35) Mean Corpuscular Hemoglobin Concent 32g/dL (31-37) Red Cell Distribution Width 15.9% (11.5-14.5) Platelet Count 199x10^3/uL (140-400) Neutrophils (%) (Auto) 68% (31-73) Lymphocytes (%) (Auto) 18% (24-48) Monocytes (%) (Auto) 12% (0-9) Eosinophils (%) (Auto) 1% (0-3) Basophils (%) (Auto) 1% (0-3) Neutrophils # (Auto) 5.5x10^3uL (1.8-7.7) Lymphocytes # (Auto) 1.4x10^3/uL (1.0-4.8) Monocytes # (Auto) 1.0x10^3/uL (0.0-1.1) Eosinophils # (Auto) 0.1x10^3/uL (0.0-0.7) Basophils # (Auto) 0.0x10^3/uL (0.0-0.2) Sodium Level 139mmol/L (136-145) Potassium Level 3.8mmol/L (3.5-5.1) Chloride Level 97mmol/L (98-107) Carbon Dioxide Level 31mmol/L (21-32) Anion Gap 11 (6-14) Blood Urea Nitrogen 15mg/dL (7-20) Creatinine 2.8mg/dL (0.6-1.0) Estimated GFR (Cockcroft-Gault) 16.4 Glucose Level 256mg/dL (70-99) Calcium Level 10.3mg/dL (8.5-10.1) Microbiology 09/04/16 Blood Culture - Final, Complete 09/04/16 Blood Culture Result 1 (ANABELL) - Final, Complete 09/06/16 Sputum Culture - Final, Complete 09/06/16 Sputum Result 1 - Final, Complete Medications Current Medications Albumin Human (Albuminar) 200 ml @ 200 mls/hr 1X ONCE IV Last administered on 09/09/16 15:07; Start 09/09/16 at 14:45; Stop 09/09/16 at 15:44; Status DC Hydralazine HCl (Apresoline) 10 mg PRN Q6HRS PRN IVP ELEVATED BP, SEE COMMENTS Last administered on 09/09/16 20:39; Start 09/09/16 at 20:00 Vancomycin HCl 500 mg/Sodium Chloride 100 ml @ 100 mls/hr 1X ONCE IV ; Start 09/11/16 at 16:00; Stop 09/11/16 at 16:59 Vitals/I & O Vital Sign - Last 24 Hours 09/09/16 09/09/16 09/09/16 09/09/16 11:38 17:44 18:53 19:15 Temp 98.1 97.8 97.6 98.1 97.8 97.6 Pulse 88 96 101 Resp 16 B/P 161/69 180/83 186/84 Pulse Ox 93 96 98 92 O2 Delivery Room Air Room Air Room Air Room Air 09/09/16 09/09/16 09/09/16 09/09/16 19:16 19:30 20:39 22:11 Pulse 112 109 B/P 186/84 129/46 Pulse Ox 92 O2 Delivery Room Air Room Air 09/09/16 09/10/16 09/10/16 09/10/16 22:32 03:09 07:14 07:31 Temp 97.9 97.0 97.3 97.9 97.0 97.3 Pulse 97 90 82 Resp 17 B/P 119/54 109/54 95/57 Pulse Ox 99 97 99 96 O2 Delivery Room Air Room Air Room Air Room Air 09/10/16 09/10/16 09/10/16 08:21 09:00 09:00 Pulse 82 82 B/P 95/57 95/57 O2 Delivery Room Air Intake and Output 09/09/16 09/09/16 09/10/16 15:00 23:00 07:00 Intake Total 0 ml 0 ml 120 ml Output Total 350 ml 2 ml Balance 0 ml -350 ml 118 ml Nutrition Consultation Dietary Evaluation: Recommendations by RD: Increase Calorie Intake, Protein supplementation Comments: Rec. continue novasource renal BID - 475kcal and 21.6g protein per serving Expected Outcomes/Goals: to meet >75% est nutr needs Malnutrition Findings: Body Fat Depletion (Non Severe: Mild Depletion Weight Status: Appropriate FRANCISCO LAMBERT MD Sep 10, 2016 09:48
--- NOTE | 2016-09-10 09:59 | PDOC ---
PULMONARY PROGRESS NOTES Subjective no sign of distress does not follow any commands Vitals Vital Signs Date Time Temp Pulse Resp B/P Pulse Ox O2 Delivery O2 Flow Rate FiO2 09/10/16 09:00 82 95/57 09/10/16 08:21 Room Air 09/10/16 07:31 96 09/10/16 07:14 97.3 17 97.3 General: Alert, No acute distress HEENT: Other (nc at perrl ) Lungs: Other (decrease bs) Cardiovascular: S1, S2 Abdomen: Soft, Non-tender Neuro Exam: Alert Extremities: No Edema Skin: Warm Labs Laboratory Tests Test 09/08/16 10:18 09/08/16 16:57 09/09/16 03:35 09/09/16 12:10 Glucose (Fingerstick) 107mg/dL (70-99) 94mg/dL (70-99) 77mg/dL (70-99) Random Vancomycin Level 28.7mcg/mL Test 09/09/16 18:28 09/09/16 19:56 09/09/16 19:59 09/09/16 22:20 Glucose (Fingerstick) 64mg/dL (70-99) 195mg/dL (70-99) 185mg/dL (70-99) 365mg/dL (70-99) Test 09/10/16 03:10 09/10/16 07:52 White Blood Count 8.1x10^3/uL (4.0-11.0) Red Blood Count 3.88x10^6/uL (3.50-5.40) Hemoglobin 11.3g/dL (12.0-15.5) Hematocrit 35.3% (36.0-47.0) Mean Corpuscular Volume 91fL (79-100) Mean Corpuscular Hemoglobin 29pg (25-35) Mean Corpuscular Hemoglobin Concent 32g/dL (31-37) Red Cell Distribution Width 15.9% (11.5-14.5) Platelet Count 199x10^3/uL (140-400) Neutrophils (%) (Auto) 68% (31-73) Lymphocytes (%) (Auto) 18% (24-48) Monocytes (%) (Auto) 12% (0-9) Eosinophils (%) (Auto) 1% (0-3) Basophils (%) (Auto) 1% (0-3) Neutrophils # (Auto) 5.5x10^3uL (1.8-7.7) Lymphocytes # (Auto) 1.4x10^3/uL (1.0-4.8) Monocytes # (Auto) 1.0x10^3/uL (0.0-1.1) Eosinophils # (Auto) 0.1x10^3/uL (0.0-0.7) Basophils # (Auto) 0.0x10^3/uL (0.0-0.2) Sodium Level 139mmol/L (136-145) Potassium Level 3.8mmol/L (3.5-5.1) Chloride Level 97mmol/L (98-107) Carbon Dioxide Level 31mmol/L (21-32) Anion Gap 11 (6-14) Blood Urea Nitrogen 15mg/dL (7-20) Creatinine 2.8mg/dL (0.6-1.0) Estimated GFR (Cockcroft-Gault) 16.4 Glucose Level 256mg/dL (70-99) Calcium Level 10.3mg/dL (8.5-10.1) Glucose (Fingerstick) 91mg/dL (70-99) Laboratory Tests Test 09/09/16 12:10 09/09/16 18:28 09/09/16 19:56 09/09/16 19:59 Glucose (Fingerstick) 77mg/dL (70-99) 64mg/dL (70-99) 195mg/dL (70-99) 185mg/dL (70-99) Test 09/09/16 22:20 09/10/16 03:10 09/10/16 07:52 Glucose (Fingerstick) 365mg/dL (70-99) 91mg/dL (70-99) White Blood Count 8.1x10^3/uL (4.0-11.0) Red Blood Count 3.88x10^6/uL (3.50-5.40) Hemoglobin 11.3g/dL (12.0-15.5) Hematocrit 35.3% (36.0-47.0) Mean Corpuscular Volume 91fL (79-100) Mean Corpuscular Hemoglobin 29pg (25-35) Mean Corpuscular Hemoglobin Concent 32g/dL (31-37) Red Cell Distribution Width 15.9% (11.5-14.5) Platelet Count 199x10^3/uL (140-400) Neutrophils (%) (Auto) 68% (31-73) Lymphocytes (%) (Auto) 18% (24-48) Monocytes (%) (Auto) 12% (0-9) Eosinophils (%) (Auto) 1% (0-3) Basophils (%) (Auto) 1% (0-3) Neutrophils # (Auto) 5.5x10^3uL (1.8-7.7) Lymphocytes # (Auto) 1.4x10^3/uL (1.0-4.8) Monocytes # (Auto) 1.0x10^3/uL (0.0-1.1) Eosinophils # (Auto) 0.1x10^3/uL (0.0-0.7) Basophils # (Auto) 0.0x10^3/uL (0.0-0.2) Sodium Level 139mmol/L (136-145) Potassium Level 3.8mmol/L (3.5-5.1) Chloride Level 97mmol/L (98-107) Carbon Dioxide Level 31mmol/L (21-32) Anion Gap 11 (6-14) Blood Urea Nitrogen 15mg/dL (7-20) Creatinine 2.8mg/dL (0.6-1.0) Estimated GFR (Cockcroft-Gault) 16.4 Glucose Level 256mg/dL (70-99) Calcium Level 10.3mg/dL (8.5-10.1) Medications Active Scripts Medications Dose Route/Sig Days Date Category Aspirin 325 Mg Tablet 325 Mg PO DAILYWBKFT 03/12/16 Rx Amox Tr-K Clv 500-125 Mg Tab (Amoxicillin/Potassium Clav) 1 Each Tablet 1 Tab PO Q24H 03/12/16 Rx Hydralazine Hcl 25 Mg Tablet 1 Tab PO TID PRN 02/27/16 Rx [Sennosides/Docusate Sodium] 1 TAB Tablet 1 Tab PO HS 01/11/15 Rx Gas-X (Simethicone) 80 Mg Tab.chew 80 Mg PO PRN AFTMEALHC PRN 30 01/11/15 Rx [Polyethylene Glycol 3350] 17 GM Packet 17 Gm PO DAILY 8/21/15 Rx Vitamin B-6 (Pyridoxine Hcl) 50 Mg Tablet 50 Mg PO DAILY 30 01/11/15 Rx Protonix (Pantoprazole Sodium) 40 Mg Tablet 40 Mg PO BIDAC 01/11/15 Rx Novolog Flexpen (Insulin Aspart) 300 Units/3 Ml Insuln.pen 0 Units SQ TIDWMEALS 30 01/11/15 Rx Folic Acid 1 Mg Tablet 1 Mg PO DAILY 01/11/15 Rx Aranesp Syringe (Darbepoetin Azeem In Polysorbat) 25 Mcg/0.42 Ml Disp.syrin 25 Mcg SQ WEEKLYHS 01/11/15 Rx Catapres (Clonidine Hcl) 0.1 Mg Tablet 0.1 Mg PO PRN Q6HRS PRN 01/11/15 Rx [Albuterol Sulfate] 2.5 MG/3 ML Nebu 2.5 Mg NEB PRN Q4HRS PRN 01/11/15 Rx Norvasc (Amlodipine Besylate) 10 Mg Tablet 10 Mg PO DAILY 01/11/15 Rx Tylenol (Acetaminophen) 325 Mg Tablet 650 Mg PO PRN Q6HRS PRN 30 01/11/15 Rx Comments IMPRESSION: Improved inspiratory effort. Right pleural effusion with associated volume loss persists. Mild pulmonary vascular congestion Impression . 1. Acute hypoxemic respiratory failure, multifactorial in etiology. 2. Abnormal chest x-ray.c/w CHF. ct chest with RLL effusion, small on left 3. Pneumonia, less likely 4. Acute diastolic congestive heart failure. 5. Acute bronchospasm, wheezing.resolved 6. End-stage renal disease, on hemodialysis. 7. History of tuberculosis, treated. 8. Diabetes mellitus. 9. Hypertension. 10, Bacteremia, coag neg, probably contaminant Plan . resp status is compensated, on RA will hold on thoracentesis for now. Pt asymptomatic continue increase UF/HD antibx per ID d/w KARLI Dawson MD Sep 10, 2016 09:59
[2016-09-10 10:37] VITALS: BP 102/60
[2016-09-10] MEDS: VANCOMYCIN PER PHARMACY MC PRN (12:34)
[2016-09-10 14:16] VITALS: BP 94/61
--- NOTE | 2016-09-10 17:21 | PDOC2 ---
PALLIATIVE CARE Palliative Care Note Palliative Care Patient alert. Eating small bites of food brought by family. Coughing after drinking liquids. Met with son/decision maker Jefry. Patient had 12 children; 4 living. Jefry shares that he is seeing a decline in his mother. Does not want to put her in a hospice facility or snf. They have discussed her wishes when she was able to share her thoughts. Wants to stop dialysis. Asked how much longer she would live when dialysis is stopped. States she was coughing after drinking fluids when she was at home. He does not want to see her suffer--wants her to at home peacefully surrounded by her family. He is familiar with hospice. He has no preference of agency. Discussed Code Status: Requests DNR/DNI for his mother. Understands without this attempt she likely would . Outside the Hospital DNR/DNI form signed by Jefry. 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 Has been in [place] area since 1990. Plan: Home with Hospice No preference of agency. DNR/DNI will need physician signature Devaughn RN will call Dr. Woods for orders. Stopping dialysis after treatment on Wednesday. DME: Hospital Bed. [facility] oxygen Jefry [phone]. EUGENE RON Sep 10, 2016 17:21
[2016-09-10 19:04] VITALS: BP 91/63
[2016-09-10] MEDS: SENNOSIDES/DOCUSATE 8.6/50MG TABLET. PO SCH (21:00)
[2016-09-10 23:33] VITALS: BP 85/53
[2016-09-11 03:33] VITALS: BP 112/55
[2016-09-11] MEDS: HEPARIN PF for SUB-Q USE 5,000 UNIT/0.5 ML VIAL. SQ SCH ×2 (05:43→14:00)
[2016-09-11 07:23] VITALS: BP 127/56
[2016-09-11] MEDS: PANTOPRAZOLE 40 MG TABLET.DR. PO SCH (07:30)
[2016-09-11] MEDS: BUDESONIDE 0.5 MG/2 ML NEBU. NEB SCH (07:49)
[2016-09-11] MEDS: IPRATRPIUM/ALBUTEROL 0.5/2.5MG 3 ML NEBU. NEB SCH ×2 (07:49→11:11)
[2016-09-11] MEDS: INSULIN ASPART 300 UNITS/3 ML INSULN.PEN SQ SCH ×2 (08:00→11:47)
[2016-09-11] MEDS: ASPIRIN 325 MG TABLET PO SCH (08:00)
[2016-09-11] MEDS: PYRIDOXINE 50 MG TABLET. PO SCH (09:00)
[2016-09-11] MEDS: LISINOPRIL 5 MG TABLET. PO SCH (09:00)
[2016-09-11] MEDS: amLODIPine BESYLATE 10 MG TABLET PO SCH (09:00)
[2016-09-11] MEDS: FOLIC ACID 1 MG TABLET. PO SCH (09:00)
[2016-09-11] MEDS: POLYETHYLENE GLYCOL 3350 17 GM PACKET. PO SCH (09:00)
--- NOTE | 2016-09-11 09:53 | PDOC ---
PROGRESS NOTES Subjective Subjective no new problems Objective Objective Vital Signs Date Time Temp Pulse Resp B/P Pulse Ox O2 Delivery O2 Flow Rate FiO2 09/11/16 09:00 78 127/56 09/11/16 08:00 Room Air 09/11/16 07:49 92 09/11/16 07:23 97.3 18 97.3 Intake and Output 09/11/16 06:59 Intake Total 0 ml Balance 0 ml Intake Oral 0 ml # Voids 1 # Bowel Movements 3 Physical Exam Abdomen: Soft, No tenderness Heart: Regular rate Extremities: No edema General: No acute distress HEENT: Atraumatic, PERRLA Lungs: Other Neck: Supple Psych/Mental Status: Other (sleepy) Skin: No breakdown Diagnosis Problem List Problems Medical Problems: (1) Pneumonia Status: Acute (2) Pulmonary edema Status: Acute (3) SOB (shortness of breath) Status: Acute RENAL FAILURE: ESRD Assessment Assessment Bacteremia, gram positive blood c/s, 2 out of 4 .saph coagulase neg. agitation and confusion 1. Pneumonia suspect gram neg and gram positive. 2. Heart failure, diastolic, chronic. 3. End-stage renal disease, on dialysis Wednesday, Wednesday and Wednesday. 4. Diabetes, insulin-dependent. 5. Hypertension. 6. 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 Plan:spoke with pulmonary today spoke with palliative care, d/c home with hospice. DNR.no dialysis in the future CT chest pleural effusion,moderate On Zosyn.Received one dose of IV Vancomycin. Patient is much worse- did not respond to breathing RX. no need for pleural tap. Problems: Plan Plan of Care Problems Medical Problems: (1) Pneumonia Status: Acute (2) Pulmonary edema Status: Acute (3) SOB (shortness of breath) Status: Acute Comment Review of Relevant I have reviewed the following items reji (where applicable) has been applied. Labs Microbiology 09/04/16 Blood Culture - Final, Complete 09/04/16 Blood Culture Result 1 (ANABELL) - Final, Complete 09/06/16 Sputum Culture - Final, Complete 09/06/16 Sputum Result 1 - Final, Complete Medications Current Medications Vancomycin HCl/ Sodium Chloride (Iv Sodium Chloride 0.9% 100ml) 100 ml @ 100 mls/hr 1X ONCE IV ; Start 09/11/16 at 16:00; Stop 4/21/17 at 16:59 Vitals/I & O Vital Sign - Last 24 Hours 09/10/16 09/10/16 09/10/16 09/10/16 10:37 11:17 14:16 15:46 Temp 97.0 97.4 97.0 97.4 Pulse 101 96 Resp 18 B/P 102/60 94/61 Pulse Ox 98 98 O2 Delivery Room Air Room Air Room Air Room Air 09/10/16 09/10/16 09/10/16 09/10/16 18:12 19:04 20:00 23:33 Temp 98.0 97.5 98.0 97.5 Pulse 99 86 Resp B/P 91/63 85/53 Pulse Ox 95 O2 Delivery Room Air Room Air Room Air Room Air 09/11/16 09/11/16 09/11/16 09/11/16 03:33 07:23 07:49 08:00 Temp 97.4 97.3 97.4 97.3 Pulse 86 78 Resp B/P 112/55 127/56 Pulse Ox 96 92 O2 Delivery Room Air Room Air Room Air Room Air 09/11/16 09:00 Pulse 78 B/P 127/56 Intake and Output 09/10/16 09/10/16 09/11/16 14:59 22:59 06:59 Intake Total 0 ml Balance 0 ml Nutrition Consultation Dietary Evaluation: Recommendations by RD: Increase Calorie Intake, Protein supplementation Comments: Rec. continue novasource renal BID - 475kcal and 21.6g protein per serving Continue to encourage consumption of outside food brought in by family Expected Outcomes/Goals: to meet >75% est nutr needs Malnutrition Findings: Body Fat Depletion (Non Severe: Mild Depletion Weight Status: Appropriate FRANCISCO LAMBERT MD Sep 11, 2016 09:53
--- NOTE | 2016-09-11 09:58 | PDOC ---
PULMONARY PROGRESS NOTES Subjective no sign of distress does not follow any commands Vitals Vital Signs Date Time Temp Pulse Resp B/P Pulse Ox O2 Delivery O2 Flow Rate FiO2 09/11/16 09:00 78 127/56 09/11/16 08:00 Room Air 09/11/16 07:49 92 09/11/16 07:23 97.3 18 97.3 General: Alert, No acute distress HEENT: Other (nc at perrl ) Lungs: Other (decrease bs) Cardiovascular: S1, S2 Abdomen: Soft, Non-tender Neuro Exam: Alert Extremities: No Edema Skin: Warm Labs Laboratory Tests Test 09/09/16 12:10 09/09/16 18:28 09/09/16 19:56 09/09/16 19:59 Glucose (Fingerstick) 77mg/dL (70-99) 64mg/dL (70-99) 195mg/dL (70-99) 185mg/dL (70-99) Test 09/09/16 22:20 09/10/16 03:10 09/10/16 07:52 Glucose (Fingerstick) 365mg/dL (70-99) 91mg/dL (70-99) White Blood Count 8.1x10^3/uL (4.0-11.0) Red Blood Count 3.88x10^6/uL (3.50-5.40) Hemoglobin 11.3g/dL (12.0-15.5) Hematocrit 35.3% (36.0-47.0) Mean Corpuscular Volume 91fL (79-100) Mean Corpuscular Hemoglobin 29pg (25-35) Mean Corpuscular Hemoglobin Concent 32g/dL (31-37) Red Cell Distribution Width 15.9% (11.5-14.5) Platelet Count 199x10^3/uL (140-400) Neutrophils (%) (Auto) 68% (31-73) Lymphocytes (%) (Auto) 18% (24-48) Monocytes (%) (Auto) 12% (0-9) Eosinophils (%) (Auto) 1% (0-3) Basophils (%) (Auto) 1% (0-3) Neutrophils # (Auto) 5.5x10^3uL (1.8-7.7) Lymphocytes # (Auto) 1.4x10^3/uL (1.0-4.8) Monocytes # (Auto) 1.0x10^3/uL (0.0-1.1) Eosinophils # (Auto) 0.1x10^3/uL (0.0-0.7) Basophils # (Auto) 0.0x10^3/uL (0.0-0.2) Sodium Level 139mmol/L (136-145) Potassium Level 3.8mmol/L (3.5-5.1) Chloride Level 97mmol/L (98-107) Carbon Dioxide Level 31mmol/L (21-32) Anion Gap 11 (6-14) Blood Urea Nitrogen 15mg/dL (7-20) Creatinine 2.8mg/dL (0.6-1.0) Estimated GFR (Cockcroft-Gault) 16.4 Glucose Level 256mg/dL (70-99) Calcium Level 10.3mg/dL (8.5-10.1) Medications Active Scripts Medications Dose Route/Sig Days Date Category Aspirin 325 Mg Tablet 325 Mg PO DAILYWBKFT 03/12/16 Rx Amox Tr-K Clv 500-125 Mg Tab (Amoxicillin/Potassium Clav) 1 Each Tablet 1 Tab PO Q24H 03/12/16 Rx Hydralazine Hcl 25 Mg Tablet 1 Tab PO TID PRN 02/27/16 Rx [Sennosides/Docusate Sodium] 1 TAB Tablet 1 Tab PO HS 01/11/15 Rx Gas-X (Simethicone) 80 Mg Tab.chew 80 Mg PO PRN AFTMEALHC PRN 30 01/11/15 Rx [Polyethylene Glycol 3350] 17 GM Packet 17 Gm PO DAILY 01/11/15 Rx Vitamin B-6 (Pyridoxine Hcl) 50 Mg Tablet 50 Mg PO DAILY 30 01/11/15 Rx Protonix (Pantoprazole Sodium) 40 Mg Tablet 40 Mg PO BIDAC 01/11/15 Rx Novolog Flexpen (Insulin Aspart) 300 Units/3 Ml Insuln.pen 0 Units SQ TIDWMEALS 30 01/11/15 Rx Folic Acid 1 Mg Tablet 1 Mg PO DAILY 01/11/15 Rx Aranesp Syringe (Darbepoetin Azeem In Polysorbat) 25 Mcg/0.42 Ml Disp.syrin 25 Mcg SQ WEEKLYHS 8/21/15 Rx Catapres (Clonidine Hcl) 0.1 Mg Tablet 0.1 Mg PO PRN Q6HRS PRN 01/11/15 Rx [Albuterol Sulfate] 2.5 MG/3 ML Nebu 2.5 Mg NEB PRN Q4HRS PRN 01/11/15 Rx Norvasc (Amlodipine Besylate) 10 Mg Tablet 10 Mg PO DAILY 01/11/15 Rx Tylenol (Acetaminophen) 325 Mg Tablet 650 Mg PO PRN Q6HRS PRN 30 01/11/15 Rx Comments IMPRESSION: Improved inspiratory effort. Right pleural effusion with associated volume loss persists. Mild pulmonary vascular congestion Impression . 1. Acute hypoxemic respiratory failure, multifactorial in etiology. 2. Abnormal chest x-ray.c/w CHF. ct chest with RLL effusion, small on left 3. Pneumonia, less likely 4. Acute diastolic congestive heart failure. 5. Acute bronchospasm, wheezing.resolved 6. End-stage renal disease, on hemodialysis. 7. History of tuberculosis, treated. 8. Diabetes mellitus. 9. Hypertension. 10, Bacteremia, coag neg, probably contaminant Plan . resp status is compensated, on RA will hold on thoracentesis for now. Pt asymptomatic continue increase UF/HD antibx per ID d/w Dr Woods/palliative care son wants comfort care. I agree KARLI ANNE MD Sep 11, 2016 09:58
[2016-09-11 10:10] VITALS: BP 83/44
[2016-09-11 14:21] VITALS: BP 103/50
[2016-09-11] MEDS: VANCOMYCIN PER PHARMACY MC PRN (14:22)
--- NOTE | 2016-09-11 15:04 | PDOC ---
Provider Note Provider Note Discharge summary dictated. #[id number] FRANCISCO LAMBERT MD Sep 11, 2016 15:04
[2016-09-11] MEDS ORDERED: VANCOMYCIN 500 MG in IV NORMAL SALINE 100ML 100 ML IV ONE (16:00)
--- NOTE | 2016-09-11 22:17 | DS ---
DATE OF DISCHARGE: 09/11/2016 PATIENT LOCATION: [facility]. REASON FOR ADMISSION TO THE HOSPITAL: Shortness of breath, combination of pneumonia and heart failure and end-stage renal disease on hemodialysis. CONSULTATIONS: Dr. Serrano, Renal; Dr. Musa, Pulmonology; Dr. Waller, Cardiology. PROCEDURES DONE: 1. Echocardiogram. 2. CT chest. 3. Hemodialysis. COMPLICATIONS NOTED: None. HOSPITAL COURSE: The patient is a 75-year-old female who has end-stage renal disease on hemodialysis, pulmonary tuberculosis was treated a couple of years ago. She was having shortness of breath with cough, congestion, was brought to the hospital. X-ray shows infiltrate in the lung. White count was elevated was given antibiotic and also the patient was continued on aggressive dialysis with fluid removal related to hemodialysis. The patient had a staph bacteremia and was seen by Infectious Disease, was given vancomycin and Zosyn. The patient had an echocardiogram, which shows ejection fraction is 30-35%, moderate to severe global hypokinesia and large right effusion. CT chest shows right effusion, moderate, and the patient's condition slightly improved with antibiotics and aggressive diuresis with dialysis, but on the whole her condition was getting worse, was seen by palliative team and the family is agreeable to taking her home with hospice and they are trying to even stop the dialysis. FINAL DIAGNOSES: 1. Pneumonia, suspect gram negative, gram positive. 2. Staph bacteremia. 3. Congestive heart failure, acute on chronic systolic heart failure. 4. End-stage renal disease on dialysis 3 times a week. 5. Hypertension. 6. Moderate pleural effusion secondary to heart failure. 7. General debility and decline. DISPOSITION: Home with hospice. FRANCISCO LAMBERT MD DR: RIVAS/humza JOB#: [id number] / [id number]
== END 2016-09-11 15:35 | disposition hospice, home (50) | DRG 871 ==
LOC: ER 11:43 → 2 NORTH 13:59
PROVIDERS: ADMIT Internal Medicine; ATTEND Internal Medicine
PROC: 5A1D60Z (ICD-10-PCS; principal; 2016-09-04)
DX: A41.89 Other specified sepsis (principal); I50.43 Acute on chronic combined systolic (congestive) and diastolic (congestive) heart failure; N18.6 End stage renal disease; J96.21 Acute and chronic respiratory failure with hypoxia; J15.6 Pneumonia due to other Gram-negative bacteria; I13.2 Hypertensive heart and chronic kidney disease with heart failure and with stage 5 chronic kidney disease, or end stage renal disease; N25.81 Secondary hyperparathyroidism of renal origin; I42.9 Cardiomyopathy, unspecified; D63.1 Anemia in chronic kidney disease; E11.21 Type 2 diabetes mellitus with diabetic nephropathy; E11.22 Type 2 diabetes mellitus with diabetic chronic kidney disease; E11.43 Type 2 diabetes mellitus with diabetic autonomic (poly)neuropathy; Z90.710 Acquired absence of both cervix and uterus; E78.5 Hyperlipidemia, unspecified; Z66 Do not resuscitate; Z51.5 Encounter for palliative care; K21.9 Gastro-esophageal reflux disease without esophagitis; R62.7 Adult failure to thrive; K31.84 Gastroparesis; B96.89 Other specified bacterial agents as the cause of diseases classified elsewhere; B95.8 Unspecified staphylococcus as the cause of diseases classified elsewhere; J98.01 Acute bronchospasm; Z79.899 Other long term (current) drug therapy; Z79.1 Long term (current) use of non-steroidal anti-inflammatories (NSAID); Z79.82 Long term (current) use of aspirin; I25.2 Old myocardial infarction; Z79.4 Long term (current) use of insulin; Z86.11 Personal history of tuberculosis; Z99.2 Dependence on renal dialysis
CPT/HCPCS: 36415; 71010; 71250; 80048; 80053; 80061; 80202; 82947; 83605; 83880; 84484; 85007; 85027; 87040; 87070; 87205; 87517; 87804; 93005; 93306; 94640; 94760; J0360; J0881; J1815; J2543; J3370; J7042; J7050; J7512; J7620; P9046; 99285-25; J7030